=== PATIENT | female | born 1930 | race Caucasian/White ===

== ENCOUNTER → 2016-11-09 | Outpatient (CLI) | payer MEDICARE, OTHER ==
[2016-10-11 11:00] VITALS: BP 149/75
[~2016-11-09] MED LIST: ACET-1550 PO; ACET325T9 PO; ACET500T68 PO; ACET500T68 RC; AMLO5TAB4 PO; ASPI81TA2 PO; CALC500T PO; CLON0.25 PO; FURO20TA3 PO; FURO40TA4 PO; LEVO88TA2 PO; LIDO700A4 TP; LOPE2CAP PO; METO100T11 PO; OMEP20TA63 PO; SENN8.6T3 PO; TELM80TA PO
--- NOTE | 2016-11-09 17:10 | RAD ---
INDICATION: Hemorrhage follow-up COMPARISON: 11/01/2016 TECHNIQUE: Axial CT images obtained through the head without intravenous contrast. FINDINGS: There is repeat demonstration of a right-sided subdural fluid collection which currently measures up to 12 mm in thickness and was previously approximately 15 mm in thickness. There is approximately 2-3 mm of midline shift to the left which is similar to slightly decreased from prior. Prominence of the ventricles and sulci are again seen. Suprasellar cistern is not effaced. Scattered foci of low attenuation within the white matter. IMPRESSION: 1. Repeat demonstration of right-sided subdural fluid collection which could be secondary to the patient's known subdural hematoma. Overall size and degree of midline shift is slightly decreased from prior. PQRS Compliance Statement: One or more of the following individualized dose reduction techniques were utilized for this examination: 1. Automated exposure control 2. Adjustment of the mA and/or kV according to patient size 3. Use of iterative reconstruction technique
== END | disposition home or self-care (01) ==
LOC: CT 12:48
PROVIDERS: ATTEND Neurological Surgery
DX: S06.5X0A Traumatic subdural hemorrhage without loss of consciousness, initial encounter (principal); X58.XXXA Exposure to other specified factors, initial encounter; Y93.89 Activity, other specified; Y92.89 Other specified places as the place of occurrence of the external cause; Y99.8 Other external cause status
CPT/HCPCS: 70450

== ENCOUNTER 2016-12-01 12:26 | Inpatient (IN) | payer MEDICARE, OTHER ==
[~2016-12-01] VITALS: Ht 167.6 cm; Wt 67.4 kg
[~2016-12-01 12:26] MED LIST changes: -AMLO5TAB4 PO; -FURO40TA4 PO; -SENN8.6T3 PO
[2016-12-01 13:10] LABS: BASO # 0.1 x10^3/uL (0.0-0.2); BASO % 1 % (0-3); EOS % 3 % (0-3); HEMATOCRIT 38.8 % (36.0-47.0); HEMOGLOBIN 13.2 g/dL (12.0-15.5); LYMPH # 1.4 x10^3/uL (1.0-4.8); LYMPH % 14 % (24-48); MEAN CORPUSCULAR HEMOGLOBIN 32 pg (25-35); MEAN CORPUSCULAR HGB CONC 34 g/dL (31-37); MEAN CORPUSCULAR VOLUME 93 fL (79-100); MONO % 7 % (0-9); NEUT % 75 % (31-73); PLATELET COUNT 256 x10^3/uL (140-400); RED BLOOD COUNT 4.19 x10^6/uL (3.50-5.40); RED CELL DISTRIBUTION WIDTH 14.8 % (11.5-14.5); WHITE BLOOD COUNT 9.6 x10^3/uL (4.0-11.0)
[2016-12-01 13:18] LABS: INR 1.1 (0.8-1.1); PROTHROMBIN TIME PATIENT 13.3 SEC (11.7-14.0)
[2016-12-01 13:25] LABS: CALCIUM 9.8 mg/dL (8.5-10.1); GFR 23.7; POTASSIUM 4.5 mmol/L (3.5-5.1)
[2016-12-01 13:31] LABS: ALBUMIN 3.8 g/dL (3.4-5.0); DIRECT BILIRUBIN 0.2 mg/dL (0.0-0.2); TOTAL BILIRUBIN 0.7 mg/dL (0.2-1.0)
--- NOTE | 2016-12-01 14:00 | RAD ---
CT of the head without contrast, 12/01/2016: History: Fall, head injury Comparison is made to a study from 10/08/2016 as well as an exam from 11/09/2016. The previously seen right-sided subdural hematoma has resolved. There is moderate cerebral atrophy. The ventricles are enlarged on a compensatory basis. There is no shift of the midline structures. There is no evidence of acute intracranial hemorrhage or mass effect. There is also mild cerebellar atrophy. Mild mucosal thickening is noted in both ethmoid sinuses and the right maxillary sinus. IMPRESSION: 1. Resolution of the previously seen small right subdural hematoma. 2. No acute intracranial abnormality is detected. CT of the cervical spine without contrast, 12/01/2016: No acute fracture or dislocation is identified. There is a minimal superior endplate deformity at C7 which is unchanged since 10/08/2016. There are mild to moderate degenerative changes involving scattered facet joints bilaterally. There is mild disc space narrowing and marginal spurring at C5-6. No high-grade spinal stenosis is evident. There is calcific plaquing at the carotid bifurcations. IMPRESSION: 1. Mild to moderate scattered degenerative changes. 2. No acute bony abnormality is detected. PQRS Compliance Statement: One or more of the following individualized dose reduction techniques were utilized for this examination: 1. Automated exposure control 2. Adjustment of the mA and/or kV according to patient size 3. Use of iterative reconstruction technique
--- NOTE | 2016-12-01 14:02 | RAD ---
Portable chest, 12/01/2016: History: Fall, dizziness The heart is enlarged. There is calcific plaquing of the aorta. There is a retrocardiac mass which may be a hiatal hernia. The pulmonary vascularity is normal. There appear to be scattered parenchymal scars. No acute infiltrate is seen. There is no evidence of pleural fluid. The bony structures are demineralized. Vertebroplasty change is noted in a lower thoracic vertebral body. IMPRESSION: 1. Cardiomegaly and aortic atherosclerosis. 2. Retrocardiac mass suggesting a hiatal hernia.
--- NOTE | 2016-12-01 14:05 | EKG ---
[facility] [address] [place] [address] Test Date: 2016-12-01 Test Time: 13:24:48 Pat Name: HOLLY CHAMPION Department: Room: Gender: F Multimedia Authoring Specialist: : [id number] Requested By: RADHA TEE Order Number: [id number] Reading MD: Measurements Intervals [place] Rate: 71 P: 16 MS: 178 QRS: 18 QRSD: 96 T: 117 QT: 410 QTc: 451 Interpretive Statements SINUS RHYTHM ATRIAL PREMATURE COMPLEX(ES) LVH WITH REPOLARIZATION ABNORMALITY RI6.01 Unconfirmed report No previous ECG available for comparison
[2016-12-01] MEDS ORDERED: ONDANSETRON PF 4 MG/2 ML VIAL. IV ONE (14:15)
[2016-12-01] MEDS ORDERED: HYDROMORPHONE 2 MG/ML VIAL. IV PRN (14:15)
[2016-12-01 14:42] LABS: BILIRUBIN,URINE NEGATIVE (NEG); GLUCOSE,URINE NEGATIVE (NEG); PH,URINE 5.5; PROTEIN,URINE NEGATIVE (NEG-TRACE); UROBILINOGEN,URINE 0.2 mg/dL (0.2 mg/dL)
[2016-12-01 14:43] LABS: NITRITE,URINE NEGATIVE (NEG)
[2016-12-01 14:49] LABS: RBC,URINE RARE /HPF (0-2)
[2016-12-01 14:50] LABS: BACTERIA,URINE MODERATE /HPF (0-FEW); WBC,URINE >40 /HPF (0-4)
[2016-12-01 14:51] LABS: SQUAMOUS EPITHELIAL CELL,UR MOD /LPF
--- NOTE | 2016-12-01 15:09 | PHYS DOC ---
Past Medical History Past Medical History: Hypertension, Other Additional Past Medical Histor: ATRIAL VALVE PROLAPSE Past Surgical History: Appendectomy, Other Additional Past Surgical Histo: TWO BACK SGRYS Alcohol Use: None Drug Use: None Adult General Chief Complaint Chief Complaint: MECHANICAL FALL HPI HPI 85-year-old female presenting to the emergency department today after having shortness of breath and dizziness over the past 2 days. She also sustained a mechanical fall today and suffered head injury. She has an abrasion to the back of the head. She states that she was walking when she felt lightheaded and fell backwards hitting her head. She denies passing out. Review of systems is negative for chest pain abdominal pain nausea vomiting diaphoresis. All other review of systems is negative unless otherwise noted in history of present illness. Review of Systems Review of Systems SEE ABOVE. Current Medications Current Medications Current Medications Medications (Trade) Dose Ordered Sig/Deborah Start Time Stop Time Status Last Admin Dose Admin Hydromorphone HCl (Dilaudid) 0.5 mg PRN Q1HR PRN 12/01/16 14:15 12/01/16 14:15 0.5 MG Ondansetron HCl (Zofran) 4 mg 1X ONCE 12/01/16 14:15 12/01/16 14:25 DC 12/01/16 14:15 4 MG Allergies Allergies Allergies Coded Allergies Type Severity Reaction Last Updated Verified Iodine and Iodide Containing Produc Allergy Intermediate 10/08/16 Yes Physical Exam Physical Exam Constitutional: Well developed, well nourished, no acute distress, non-toxic appearance. Patient is pleasant elderly female saturating well on 3 L nasal cannula. Patient does not have a history of oxygen use. HENT: Normocephalic, the patient has a quarter size abrasion to the left occiput., bilateral external ears normal, oropharynx moist, no oral exudates, nose normal. [] Eyes: PERRLA, EOMI, conjunctiva normal, no discharge. Neck: Normal range of motion, no tenderness, supple, no stridor. [] Cardiovascular:Heart rate regular rhythm, no murmur [] Lungs & Thorax: Bilateral breath sounds clear to auscultation Abdomen: Bowel sounds normal, soft, no tenderness, no masses, no pulsatile masses. [] Skin: Warm, dry, no erythema, no rash. Back: No tenderness, no CVA tenderness. [] Extremities: No tenderness, no cyanosis, no clubbing, ROM intact, no edema. Neurologic: Alert and oriented X 3, normal motor function, normal sensory function, no focal deficits noted. Psychologic: Affect normal, judgement normal, mood normal. [] Current Patient Data Vital Signs Vital Signs Date Time Temp Pulse Resp B/P Pulse Ox O2 Delivery O2 Flow Rate FiO2 12/01/16 14:16 69 138/62 97 Nasal Cannula 3.5 12/01/16 14:15 20 12/01/16 12:26 98 98.0 Lab Values Laboratory Tests Test 12/01/16 12:58 12/01/16 13:55 White Blood Count 9.6x10^3/uL (4.0-11.0) Red Blood Count 4.19x10^6/uL (3.50-5.40) Hemoglobin 13.2g/dL (12.0-15.5) Hematocrit 38.8% (36.0-47.0) Mean Corpuscular Volume 93fL (79-100) Mean Corpuscular Hemoglobin 32pg (25-35) Mean Corpuscular Hemoglobin Concent 34g/dL (31-37) Red Cell Distribution Width 14.8% (11.5-14.5) H Platelet Count 256x10^3/uL (140-400) Neutrophils (%) (Auto) 75% (31-73) H Lymphocytes (%) (Auto) 14% (24-48) L Monocytes (%) (Auto) 7% (0-9) Eosinophils (%) (Auto) 3% (0-3) Basophils (%) (Auto) 1% (0-3) Neutrophils # (Auto) 7.2x10^3uL (1.8-7.7) Lymphocytes # (Auto) 1.4x10^3/uL (1.0-4.8) Monocytes # (Auto) 0.7x10^3/uL (0.0-1.1) Eosinophils # (Auto) 0.3x10^3/uL (0.0-0.7) Basophils # (Auto) 0.1x10^3/uL (0.0-0.2) Prothrombin Time 13.3SEC (11.7-14.0) Prothrombin Time INR 1.1 (0.8-1.1) PTT 30SEC (24-38) Sodium Level 136mmol/L (136-145) Potassium Level 4.5mmol/L (3.5-5.1) Chloride Level 101mmol/L (98-107) Carbon Dioxide Level 23mmol/L (21-32) Anion Gap 12 (6-14) Blood Urea Nitrogen 47mg/dL (7-20) H Creatinine 2.0mg/dL (0.6-1.0) H Estimated GFR (Cockcroft-Gault) 23.7 Glucose Level 117mg/dL (70-99) H Calcium Level 9.8mg/dL (8.5-10.1) Total Bilirubin 0.7mg/dL (0.2-1.0) Direct Bilirubin 0.2mg/dL (0.0-0.2) Aspartate Amino Transferase (AST) 19U/L (15-37) Alanine Aminotransferase (ALT) 12U/L (14-59) L Alkaline Phosphatase 99U/L (46-116) Troponin I Quantitative 0.237ng/mL (0.000-0.055) Total Protein 8.0g/dL (6.4-8.2) Albumin 3.8g/dL (3.4-5.0) Lipase 200U/L (73-393) Urine Collection Type Unknown Urine Color Yellow Urine Clarity Clear Urine pH 5.5 Urine Specific [place] <=1.005 Urine Protein Negativemg/dL (NEG-TRACE) Urine Glucose (UA) Negativemg/dL (NEG) Urine Ketones (Stick) Negativemg/dL (NEG) Urine Blood Negative (NEG) Urine Nitrite Negative (NEG) Urine Bilirubin Negative (NEG) Urine Urobilinogen Dipstick 0.2mg/dL (0.2 mg/dL) Urine Leukocyte Esterase Large (NEG) Urine RBC Rare/HPF (0-2) Urine WBC >40/HPF (0-4) Urine Squamous Epithelial Cells Mod/LPF Urine Bacteria Moderate/HPF (0-FEW) Urine Hyaline Casts Occasional/HPF Urine Mucus Slight/LPF Laboratory Tests 12/01/16 12:58 Laboratory Tests 12/01/16 12:58 EKG EKG [] Interpretation Time: EKG shows sinus rhythm with a regular rate. [place] is leftward. Intervals are within normal limits. ST segments show mild repolarization abnormality in lead V2 and V3. Does not meet STEMI criteria. Morphology of the ST segments not consistent with acute STEMI. Radiology/Procedures Radiology/Procedures [] Course & Med Decision Making Course & Med Decision Making Pertinent Labs and Imaging studies reviewed. (See chart for details) [] 85-year-old female presenting to the emergency department after having lightheadedness dizziness and shortness of breath over the past few days and then suffering from a mechanical fall. On arrival the patient was hypoxic and placed on 3 L nasal cannula which improved her saturations. Otherwise vital signs showed mild hypertension. Physical exam shows a small abrasion to the left occiput. EKG shows LVH with mild repolarization. Blood work was sent CBC unremarkable. Urinalysis suggestive of infection. Antibiotics ordered along with IV fluids. Chemistry panel shows acute kidney injury. Troponin positive likely secondary to type II and STEMI secondary to hypoxia. I discussed the case with Juliet the [facility] for general accounting clerk group and then our general accounting clerk Abby who felt that the patient's troponin likely representing subdural hematoma. Collectively, we decided not to administer any antiplatelets given the risk of worsening bleeding. Patient subsequently admitted to our hospital for further evaluation workup and care including pulmonology and cardiology consultation. Dragon Disclaimer Dragon Disclaimer This electronic medical record was generated, in whole or in part, using a voice recognition dictation system. Departure Departure Impression: Primary Impression: Hypoxia Additional Impressions: Non-STEMI (non-ST elevated myocardial infarction) Urinary tract infection Subdural hemorrhage following injury Disposition: 09 ADMITTED INPATIENT Admitting Physician: Roxi Resendez Condition: STABLE Referrals: OWEN GARCIA MD (PCP) Problem Qualifiers RADHA TEE MD Dec 01, 2016 15:09
[2016-12-01] MEDS ORDERED: ASPIRIN 81 MG TAB.CHEW PO ONE (15:15)
[2016-12-01] MEDS ORDERED: IV NORMAL SALINE 500ML BAG 500 ML IV ONE (15:15)
[2016-12-01] MEDS ORDERED: MORPHINE SULFATE 2 MG/ML DISP.SYRIN. IV PRN (15:15)
[2016-12-01] MEDS ORDERED: ONDANSETRON PF 4 MG/2 ML VIAL. IV PRN (15:15)
[2016-12-01] MEDS ORDERED: CEFTRIAXONE 1GM IVPB FOR OMNI 50 ML IV ONE (15:15)
[2016-12-01] MEDS ORDERED: LOPERAMIDE 2 MG CAPSULE PO PRN (15:45)
--- NOTE | 2016-12-01 15:45 | PDOC1 ---
History and Physical Date of Admission Date of Admission DATE: 12/01/16 TIME: 15:40 Identification/Chief Complaint Chief Complaint dizzy, fall Source Source: Caregiver, Chart review, Patient History of Present Illness History of Present Illness Ms. Grijalva is a 85-year-old sister, lives on the [facility] the [facility], admit for fall after dizzyness, noted shortness of breath and dizziness over the past 2 days. She also sustained a mechanical fall today and suffered head injury with some bleeding from the scalp from a superficial abrasion to the back of the head. Her niece was with her and saw her complain of dizzyness then fall at his her head. no LOC, She now seems to be near her baseline, but is hard of hearing, is not wearing her hearing aids Past Medical History Cardiovascular: CHF, HTN CENTRAL NERVOUS SYSTEM: Other Endocrine: Hypothyroidism Past Surgical History Past Surgical History: Other Family History Family History: No Significant Social History Smoke: No ALCOHOL: none Drugs: None Current Problem List Problem List Problems Medical Problems: (1) Hypoxia Status: Acute (2) Non-STEMI (non-ST elevated myocardial infarction) Status: Acute (3) Urinary tract infection Status: Acute Problems: Current Medications Current Medications Current Medications Hydromorphone HCl (Dilaudid) 0.5 mg PRN Q1HR PRN IV SEVERE PAIN Last administered on 12/01/16 14:15; Start 12/01/16 at 14:15 Ondansetron HCl 4 mg 4 mg 1X ONCE IV Last administered on 12/01/16t 14:15; Start 12/01/16 at 14:15; Stop 12/01/16 at 14:25; Status DC Ceftriaxone Sodium (Rocephin 1gm Ivpb For Omni) 50 ml @ 100 mls/hr 1X ONCE IV ; Start 12/01/16 at 15:15; Stop 12/01/16 at 15:44 Aspirin 324 mg 324 mg 1X ONCE PO ; Start 12/01/16 at 15:15; Stop 12/01/16 at 15 :20; Status DC Sodium Chloride (Iv Sodium Chloride 0.9% 500ml Bag) 500 ml @ 500 mls/hr 1X ONCE IV ; Start 12/01/16 at 15:15; Stop 12/01/16 at 16:14 Ondansetron HCl (Zofran) 4 mg PRN Q8HRS PRN IV NAUSEA/VOMITING; Start 12/01/16 at 15:15; Stop 12/02/16 at 15:14 Morphine Sulfate 2 mg PRN Q2HR PRN IV PAIN; Start 12/01/16 at 15:15; Stop 12/02 at 15:14 Active Scripts Active Reported Acetaminophen-Diphenhyd 500-25 (Acetaminophen/Diphenhydramine) 1 Each Tablet 1- 2 Each PO HS Loperamide (Loperamide Hcl) 2 Mg Capsule 2 Mg PO Q4HRS PRN Calcium Carbonate 500 Mg Tablet 500 Mg PO QID Aspirin 81 Mg Tab.chew 1 Tab PO HS Prilosec Otc (Omeprazole Magnesium) 20 Mg Tablet.dr 1 Tab PO DAILY16 Micardis (Telmisartan) 80 Mg Tablet 1 Tab PO DAILY08 Lidoderm (Lidocaine) 700 Mg Adh..patch 1 Patch TP DAILY Metoprolol Succinate ( Xl ) (Metoprolol Succinate) 100 Mg Tab.er.24h 1 Tab PO DAILY07 Clonazepam 0.25 Mg Tab.rapdis 0.25 Mg PO [id number] Synthroid (Levothyroxine Sodium) 88 Mcg Tablet 1 Tab PO DAILY06 Furosemide 20 Mg Tablet 1 Tab PO [id number] Tylenol (Acetaminophen) 325 Mg Tablet 1-2 Tab PO Q4-6HRS PRN Acetaminophen 500 Mg Tablet 1-2 Supp.rect RC Q4-6HRS PRN Acetaminophen 500 Mg Tablet 1-2 Tab PO Q4-6HRS PRN Allergies Allergies: Coded Allergies: Iodine and Iodide Containing Produc (Verified Allergy, Intermediate, ) ROS General: YES: Fatigue, No: Appetite, Chills, Malaise, Night Sweats, Other PSYCHOLOGICAL ROS: No: Anxiety, Behavioral Disorder, Concentration difficultie , Decreased libido, Depression, Disorientation, Hallucinations, Hostility, Irritablity, Memory difficulties, Mood Swings, Obsessive thoughts, Other, Physical abuse, Sexual abuse, Sleep disturbances, Suicidal ideation Eyes: No Blurry vision, No Decreased vision, No Double vision, No Dry eyes, No Excessive tearing, No Eye Pain, No Itchy Eyes, No Loss of vision, No Other, No Photophobia, No Scotomata, No Uses contacts, No Uses glasses HEENT: YES: Heacaches, No: Epistaxis, Hearing change, Nasal congestion, Nasal discharge, Oral lesions, Other, Sinus pain, Sneezing, Snoring, Sore Throat, Tinnitus, Vertigo, Visual Changes, Vocal changes Respiratory: No: Cough, Hemoptysis, Orthopnea, Other, Pleuritic Pain, SOB with excertion, Shortness of breath, Sputum Changes, Stridor, Tachypnea, Wheezing Cardiovascular: No Chest Pain, No Edema, No Lt Headedness, No Orthopnea, No Other, No Palpitations, No Paroxysmal Noc. Dyspnea Gastrointestinal: Yes Nausea, No Abdominal Pain, No Constipation, No Diarrhea, No Hematochezia, No Melena, No Other, No Vomiting Genitourinary: YES Frequency, No , No , No , No , No , No , No , No Discharge, No Dysuria, No Flank Pain, No Hematuria, No Incontinence, No Other, No Pain, No Retention, No Urgency Musculoskeletal: Yes Joint Stiffness, No Gait Disturbance, No Joint Pain, No Joint Swelling, No Muscle Pain, No Muscular Weakness, No Other, No Pain In:, No Swelling In: Neurological: No Behavorial Changes, No Bowel/Bladder ControlChng, No Confusion , No Dizziness, No Gait Disturbance, No Headaches, No Impaired Coord/balance, No Memory Loss, No Numbness/Tingling, No Other, No Seizures, No Speech Problems , No Tremors, No Visual Changes, No Weakness Skin: No Acne, No Dry Skin, No Eczema, No Hair Changes, No Lumps, No Mole Changes, No Mottling, No Nail Changes, No Other, No Pruritus, No Rash, No Skin Lesion Changes Physical Exam General: Alert, Oriented X3, Cooperative, No acute distress HEENT: PERRLA, EOMI, Other (bloody post scalp and hair) Lungs: Clear to auscultation, Normal air movement Heart: S1S2, no gallops Abdomen: Normal bowel sounds, Soft Extremities: No clubbing, No cyanosis, No edema Skin: No breakdown, No significant lesion Neuro: Normal speech, Normal tone Psych/Mental Status: Mental status NL, Mood NL, Other (hard of hearing) Vitals Vitals Vital Signs Date Time Temp Pulse Resp B/P Pulse Ox O2 Delivery O2 Flow Rate FiO2 12/01/16 14:15 20 12/01/16 12:26 98 77 138/63 94 Nasal Cannula 3.5 98.0 Labs Labs Laboratory Tests Test 12/01/16 12:58 12/01/16 13:55 White Blood Count 9.6x10^3/uL (4.0-11.0) Red Blood Count 4.19x10^6/uL (3.50-5.40) Hemoglobin 13.2g/dL (12.0-15.5) Hematocrit 38.8% (36.0-47.0) Mean Corpuscular Volume 93fL (79-100) Mean Corpuscular Hemoglobin 32pg (25-35) Mean Corpuscular Hemoglobin Concent 34g/dL (31-37) Red Cell Distribution Width 14.8% (11.5-14.5) Platelet Count 256x10^3/uL (140-400) Neutrophils (%) (Auto) 75% (31-73) Lymphocytes (%) (Auto) 14% (24-48) Monocytes (%) (Auto) 7% (0-9) Eosinophils (%) (Auto) 3% (0-3) Basophils (%) (Auto) 1% (0-3) Neutrophils # (Auto) 7.2x10^3uL (1.8-7.7) Lymphocytes # (Auto) 1.4x10^3/uL (1.0-4.8) Monocytes # (Auto) 0.7x10^3/uL (0.0-1.1) Eosinophils # (Auto) 0.3x10^3/uL (0.0-0.7) Basophils # (Auto) 0.1x10^3/uL (0.0-0.2) Prothrombin Time 13.3SEC (11.7-14.0) Prothromb Time International Ratio 1.1 (0.8-1.1) Activated Partial Thromboplast Time 30SEC (24-38) Sodium Level 136mmol/L (136-145) Potassium Level 4.5mmol/L (3.5-5.1) Chloride Level 101mmol/L (98-107) Carbon Dioxide Level 23mmol/L (21-32) Anion Gap 12 (6-14) Blood Urea Nitrogen 47mg/dL (7-20) Creatinine 2.0mg/dL (0.6-1.0) Estimated GFR (Cockcroft-Gault) 23.7 Glucose Level 117mg/dL (70-99) Calcium Level 9.8mg/dL (8.5-10.1) Total Bilirubin 0.7mg/dL (0.2-1.0) Direct Bilirubin 0.2mg/dL (0.0-0.2) Aspartate Amino Transf (AST/SGOT) 19U/L (15-37) Alanine Aminotransferase (ALT/SGPT) 12U/L (14-59) Alkaline Phosphatase 99U/L (46-116) Troponin I Quantitative 0.237ng/mL (0.000-0.055) Total Protein 8.0g/dL (6.4-8.2) Albumin 3.8g/dL (3.4-5.0) Lipase 200U/L (73-393) Urine Collection Type Unknown Urine Color Yellow Urine Clarity Clear Urine pH 5.5 Urine Specific [place] <=1.005 Urine Protein Negativemg/dL (NEG-TRACE) Urine Glucose (UA) Negativemg/dL (NEG) Urine Ketones (Stick) Negativemg/dL (NEG) Urine Blood Negative (NEG) Urine Nitrite Negative (NEG) Urine Bilirubin Negative (NEG) Urine Urobilinogen Dipstick 0.2mg/dL (0.2 mg/dL) Urine Leukocyte Esterase Large (NEG) Urine RBC Rare/HPF (0-2) Urine WBC >40/HPF (0-4) Urine Squamous Epithelial Cells Mod/LPF Urine Bacteria Moderate/HPF (0-FEW) Urine Hyaline Casts Occasional/HPF Urine Mucus Slight/LPF Laboratory Tests Test 12/01/16 12:58 12/01/16 13:55 White Blood Count 9.6x10^3/uL (4.0-11.0) Red Blood Count 4.19x10^6/uL (3.50-5.40) Hemoglobin 13.2g/dL (12.0-15.5) Hematocrit 38.8% (36.0-47.0) Mean Corpuscular Volume 93fL (79-100) Mean Corpuscular Hemoglobin 32pg (25-35) Mean Corpuscular Hemoglobin Concent 34g/dL (31-37) Red Cell Distribution Width 14.8% (11.5-14.5) Platelet Count 256x10^3/uL (140-400) Neutrophils (%) (Auto) 75% (31-73) Lymphocytes (%) (Auto) 14% (24-48) Monocytes (%) (Auto) 7% (0-9) Eosinophils (%) (Auto) 3% (0-3) Basophils (%) (Auto) 1% (0-3) Neutrophils # (Auto) 7.2x10^3uL (1.8-7.7) Lymphocytes # (Auto) 1.4x10^3/uL (1.0-4.8) Monocytes # (Auto) 0.7x10^3/uL (0.0-1.1) Eosinophils # (Auto) 0.3x10^3/uL (0.0-0.7) Basophils # (Auto) 0.1x10^3/uL (0.0-0.2) Prothrombin Time 13.3SEC (11.7-14.0) Prothromb Time International Ratio 1.1 (0.8-1.1) Activated Partial Thromboplast Time 30SEC (24-38) Sodium Level 136mmol/L (136-145) Potassium Level 4.5mmol/L (3.5-5.1) Chloride Level 101mmol/L (98-107) Carbon Dioxide Level 23mmol/L (21-32) Anion Gap 12 (6-14) Blood Urea Nitrogen 47mg/dL (7-20) Creatinine 2.0mg/dL (0.6-1.0) Estimated GFR (Cockcroft-Gault) 23.7 Glucose Level 117mg/dL (70-99) Calcium Level 9.8mg/dL (8.5-10.1) Total Bilirubin 0.7mg/dL (0.2-1.0) Direct Bilirubin 0.2mg/dL (0.0-0.2) Aspartate Amino Transf (AST/SGOT) 19U/L (15-37) Alanine Aminotransferase (ALT/SGPT) 12U/L (14-59) Alkaline Phosphatase 99U/L (46-116) Troponin I Quantitative 0.237ng/mL (0.000-0.055) Total Protein 8.0g/dL (6.4-8.2) Albumin 3.8g/dL (3.4-5.0) Lipase 200U/L (73-393) Urine Collection Type Unknown Urine Color Yellow Urine Clarity Clear Urine pH 5.5 Urine Specific [place] <=1.005 Urine Protein Negativemg/dL (NEG-TRACE) Urine Glucose (UA) Negativemg/dL (NEG) Urine Ketones (Stick) Negativemg/dL (NEG) Urine Blood Negative (NEG) Urine Nitrite Negative (NEG) Urine Bilirubin Negative (NEG) Urine Urobilinogen Dipstick 0.2mg/dL (0.2 mg/dL) Urine Leukocyte Esterase Large (NEG) Urine RBC Rare/HPF (0-2) Urine WBC >40/HPF (0-4) Urine Squamous Epithelial Cells Mod/LPF Urine Bacteria Moderate/HPF (0-FEW) Urine Hyaline Casts Occasional/HPF Urine Mucus Slight/LPF VTE Prophylaxis Ordered VTE Prophylaxis Devices: Yes VTE Pharmacological Prophylaxi: Contraindicated Assessment/Plan Assessment/Plan UTI fall, scalp laceration, concussion, post-concussive syndrome, mental status is pretty good subdural hematoma, prior known, she has seen Dr. Jain before Acute on CKD 3, vasomotor, gentle IV fluid, , minimal dyspnea, occasional LE edema, dizzyness, acute on chronic diastolic CHF, hypothyroidism admit to ICU for neurochecks, seen in ER HARRY FUCHS MD Dec 01, 2016 15:45
[2016-12-01] MEDS ORDERED: METOPROLOL SUCC 24HR ER 100 MG TAB.ER.24H. PO SCH (16:00)
--- NOTE | 2016-12-01 16:15 | ACF ---
Admission Forms Criteria URINARY COMPLICATIONS Clinical Indications for Inpatient Care (Place 'X' for any and all applicable criteria): Ongoing inpatient care may be indicated for urinary complications with ANY ONE of the following: [X]I. Urinary tract infection requiring inpatient care as indicated by ANY ONE of the following(8)(19)(20): [ ]a) Severe symptoms (eg, high fever, severe pain) [ ]b) Vomiting or dehydration requiring ongoing inpatient care [X]c) IV antibiotic needs that cannot be managed at lower level of care [ ]d) Hemodynamic instability [ ]e) Obstruction of collecting system by stone or tumor [ ]II. Urinary retention requiring drainage or surgery (3)(4)(5)(17)(18) [ ]III. Renal failure (Use Renal Failure Criteria for further information.) [ ]IV. Oliguria(30) [ ]V. Post obstructive diuresis requiring close monitoring of urine output and intravenous compensation for excessive fluid losses(33) Extended stay beyond goal length of stay for primary condition may be needed until ALL of the following are present(3)(4)(5)(8): [ ]a) Renal function (creatinine) at baseline, or daily decreases in creatinine consistent with renal function return [ ]b) Voiding adequately or with urinary catheter or percutaneous suprapubic tube and management regimen in place that is performable at lower level of care. [ ]c) Urine output adequate [ ]d) Fever absent or resolving [ ]e) Infection absent or treatable at next level of care The original [employer] content created by [employer] has been revised. The portions of the content which have been revised are identified through the use of italic text or in bold, and [facility] has neither reviewed nor approved the modified material. All other unmodified content is copyright [facility] Please see references footnoted in the original [facility] edition 2016 Admission Criteria Met?: Yes TOMASA NAYLOR Dec 01, 2016 16:15
[2016-12-01 16:30] VITALS: BP 130/73
[2016-12-01 16:45] VITALS: BP 113/57
--- NOTE | 2016-12-01 16:47 | PDOC ---
Provider Note Provider Note DICTATED AMBAR BARRAGAN MD Dec 01, 2016 16:47
[2016-12-01 17:00] VITALS: BP 154/89
[2016-12-01] MEDS ORDERED: FUROSEMIDE 20 MG/2 ML VIAL IVP ONE (17:00)
--- NOTE | 2016-12-01 17:07 | CONS ---
DATE OF CONSULTATION: ATTENDING PHYSICIAN: Roxi Resendez M.D. REASON FOR CONSULTATION: Hypoxia. HISTORY OF PRESENT ILLNESS: The patient is an 85-year-old female who has no significant history of tobacco use. She fell today after she felt dizzy and lightheaded and was short of breath. The patient had a mechanical fall and suffered head injury with some bleeding from the scalp, which was a superficial abrasion. She did not require any sutures. She reports no loss of consciousness. She is requiring about 3-1/2 liters on arrival. The patient's chest x-ray was reviewed by me and shows mild CHF and cardiomegaly. No history of deep vein thrombosis or pulmonary embolism. PAST MEDICAL HISTORY: CHF, hypertension, hypothyroidism and chronic renal insufficiency. PAST SURGICAL HISTORY: No recent surgery. ALLERGIES: IODINE. MEDICATIONS: All reviewed as listed in the MRAD including Rocephin antibiotic. She is also on clonazepam. REVIEW OF SYSTEMS: Twelve-point system obtained. Pertinent positives discussed in history of present illness, otherwise noncontributory. All systems that were negative were reviewed as well. SOCIAL HISTORY: Nonsmoker. FAMILY HISTORY: Noncontributory ____. PHYSICAL EXAMINATION: GENERAL: Latest blood pressure 144/79. VITAL SIGNS: Pulse ox 98% on 3.5 liters, afebrile. HEENT: Sclerae nonicteric. NECK: Supple. LUNGS: With crackles at both the bases, more on the right than the left. CARDIOVASCULAR: Regular rate and rhythm. ABDOMEN: Soft. EXTREMITIES: With 1+ pitting edema. SKIN: Shows some bruising and abrasion on the left scalp posteriorly. LABORATORY DATA: Reviewed. Her BUN 47, creatinine 2.0. Troponin 0.237. INR is 1.1. White cell count 9.6, hemoglobin 13.2, platelets 256. IMPRESSION: 1. Status post mechanical fall after a syncopal episode. 2. Acute hypoxic respiratory failure, most likely secondary to mild congestive heart failure. She has interstitial markings been prominent and some mild basilar effusion along with cardiomegaly. We will obtain an echocardiogram. 3. No significant history of tobacco use. RECOMMENDATIONS: 1. Obtain proBNP. 2. Mild gentle diuresis with one-time dose of Lasix 20 mg and monitor renal function. 3. Obtain echocardiogram. 4. Follow Renal recommendation. 5. Follow Cardiology recommendation regarding any workup or syncope. 6. We will follow along with you. Discussed with RN/RT and family AMBAR BARRAGAN MD DR: CHANDRA/roxy JOB#: [id number] / [id number] EMMANUEL
[2016-12-01] MEDS: CALCIUM CARBONATE 500 MG TABLET PO SCH ×2 (17:53→20:49)
[2016-12-01] MEDS: PANTOPRAZOLE 40 MG TABLET. PO SCH (17:53)
[2016-12-01] MEDS: CLONAZEPAM 0.5 MG TABLET PO SCH ×2 (17:53→20:50)
[2016-12-01] MEDS ORDERED: SENNOSIDES 8.6 MG TABLET PO PRN (18:15)
[2016-12-01] MEDS ORDERED: SENN8.6T3 PO (18:23)
[2016-12-01] MEDS ORDERED: AMLO5TAB4 PO (18:23)
[2016-12-01] MEDS: AMLODIPINE BESYLATE 5 MG TABLET PO SCH (18:41)
[2016-12-01 19:00] VITALS: BP 100/51
[2016-12-01] MEDS: DIPHENHYDRAMINE HCL 25 MG CAPSULE PO PRN (20:49)
[2016-12-01] MEDS ORDERED: ASPIRIN 81 MG TAB.CHEW PO SCH (21:00)
[2016-12-01 23:00] VITALS: BP 132/59
[2016-12-02] VITALS (7 sets, daily range): BP systolic 103–168; BP diastolic 34–80
[2016-12-02 04:34] LABS: BASO # 0.1 x10^3/uL (0.0-0.2); BASO % 1 % (0-3); EOS % 6 % (0-3); HEMATOCRIT 33.6 % (36.0-47.0); HEMOGLOBIN 11.4 g/dL (12.0-15.5); LYMPH # 1.5 x10^3/uL (1.0-4.8); LYMPH % 21 % (24-48); MEAN CORPUSCULAR HEMOGLOBIN 32 pg (25-35); MEAN CORPUSCULAR HGB CONC 34 g/dL (31-37); MEAN CORPUSCULAR VOLUME 94 fL (79-100); MONO % 10 % (0-9); NEUT % 63 % (31-73); PLATELET COUNT 212 x10^3/uL (140-400); RED BLOOD COUNT 3.58 x10^6/uL (3.50-5.40); RED CELL DISTRIBUTION WIDTH 14.6 % (11.5-14.5); WHITE BLOOD COUNT 7.3 x10^3/uL (4.0-11.0)
[2016-12-02] MEDS: CLONAZEPAM 0.5 MG TABLET PO SCH ×3 (05:20→20:37)
[2016-12-02] MEDS: LEVOTHYROXINE 88 MCG TABLET PO SCH (05:20)
[2016-12-02] MEDS: CALCIUM CARBONATE 500 MG TABLET PO SCH ×4 (09:22→20:36)
[2016-12-02] MEDS: AMLODIPINE BESYLATE 5 MG TABLET PO SCH (09:23)
[2016-12-02] MEDS: LIDOCAINE (700MG/PATCH) PATCH. TP SCH (09:27)
[2016-12-02] MEDS: METOPROLOL SUCC 24HR ER 100 MG TAB.ER.24H. PO SCH (09:28)
--- NOTE | 2016-12-02 09:44 | PDOC1 ---
History and Physical Visit Information Date of Admission: Dec 01, 2016 at 15:09 History of Present Illness History of Present Illness 86 YO sister presents after an episode of near syncope with fall, striking her head. She has had at least 3 recent similar episodes, one resulting in a subdural hematoma. Patient follows with an outside community development technician, and TAVR has been recommended. Patient has been reluctant to proceed due to fear of procedural stroke. Current Problem List Problems: (1) Severe aortic stenosis (2) Diastolic heart failure (3) CKD (chronic kidney disease) (4) Compression fx, thoracic spine (5) Urinary tract infection (6) Hypoxia (7) Subdural hemorrhage following injury Current Medications Current Medications Current Medications Acetaminophen (Tylenol) 325 mg PRN Q4HRS PRN PO PAIN; Start 12/01/16 at 15:45 Amlodipine Besylate (Norvasc) 5 mg DAILY PO ; Start 12/01/16 at 18:45 Aspirin (Children'S Aspirin) 81 mg HS PO Last administered on 12/01/16 20:49; Start 12/01/16 at 21:00 Aspirin 324 mg 324 mg 1X ONCE PO ; Start 12/01/16 at 15:15; Stop 12/01/16 at 15 :20; Status DC Calcium Carbonate/ Glycine (Oscal) 500 mg QID PO Last administered on 20:49; Start 12/01/16 at 17:00 Ceftriaxone Sodium/Sodium Chloride (Rocephin/Iv Sodium Chloride 0.9% 50ml) 50 ml @ 100 mls/hr Q24H IV ; Start 12/02/16 at 16:00 Ceftriaxone Sodium (Rocephin 1gm Ivpb For Omni) 50 ml @ 100 mls/hr 1X ONCE IV Last administered on 12/01/16 15:42; Start 12/01/16 at 15:15; Stop 12/01/16 at 15:44; Status DC Clonazepam (Klonopin) 0.25 mg [id number] PO Last administered on 12/02/16 05:20; Start 12/01/16 at 16:00 Diphenhydramine HCl (Benadryl) 25 mg PRN QHS PRN PO INSOMNIA Last administered on 12/01/16 20:49; Start 12/01/16 at 20:45 Furosemide (Lasix) 20 mg 1X ONCE IVP Last administered on 12/01/16 17:57; Start 12/01/16 at 17:00; Stop 12/01/16 at 17:01; Status DC Hydromorphone HCl (Dilaudid) 0.5 mg PRN Q1HR PRN IV SEVERE PAIN Last administered on 12/01/16 14:15; Start 12/01/16 at 14:15 Levothyroxine Sodium (Synthroid) 88 mcg DAILY06 PO Last administered on 05:20; Start 12/02/16 at 06:00 Lidocaine (Lidoderm) 1 patch DAILY TP ; Start 12/02/16 at 09:00 Loperamide HCl (Imodium) 2 mg PRN Q4HRS PRN PO DIARRHEA; Start 12/01/16 at 15: 45 Metoprolol Succinate (Toprol Xl) 100 mg DAILY PO ; Start 12/02/16 at 09:00 Metoprolol Succinate (Toprol Xl) 100 mg DAILY07 PO ; Start 12/01/16 at 16:00; Stop 12/02/16 at 05:34; Status DC Morphine Sulfate 2 mg 2 mg PRN Q2HR PRN IV PAIN; Start 12/01/16 at 15:15; Stop 12/02/16 at 15:14 Ondansetron HCl (Zofran) 4 mg PRN Q8HRS PRN IV NAUSEA/VOMITING; Start 12/01/16 at 15:15; Stop 12/02/16 at 15:14 Ondansetron HCl 4 mg 4 mg 1X ONCE IV Last administered on 12/01/16 14:15; Start 12/01/16 at 14:15; Stop 12/01/16 at 14:25; Status DC Pantoprazole Sodium (Protonix) 40 mg DAILY16 PO Last administered on 12/01/16 17:53; Start 12/01/16 at 16:00 Sennosides (Senna) 8.6 mg PRN DAILY PRN PO CONSTIPATION; Start 12/01/16 at 18: 15 Sodium Chloride (Iv Sodium Chloride 0.9% 500ml Bag) 500 ml @ 500 mls/hr 1X ONCE IV Last administered on 12/01/16 15:44; Start 12/01/16 at 15:15; Stop 07/10 at 16:14; Status DC Allergies Allergies Allergies Coded Allergies Type Severity Reaction Last Updated Verified Iodine and Iodide Containing Produc Allergy Intermediate 10/08/16 Yes Social History Smoke: No ALCOHOL: none Family History Family History: Coronary Artery Disease ROS Cardiovascular: yes Edema, yes Lt Headedness, No Chest Pain, No Orthopnea, No Other, No Palpitations, No Paroxysmal Noc. Dyspnea Physical Exam General: Alert, Oriented X3, Cooperative, No acute distress Lungs: Other (Bibasilar crackles) Heart: Other (3/6 Cr/Decr murmur RUSB radiating to left carotid. Soft S2) Extremities: No edema Skin: No rashes Neuro: Other (No focal findings) VASCULAR: Carotid (Delayed upstroke) Vitals VITALS Vital Signs Date Time Temp Pulse Resp B/P Pulse Ox O2 Delivery O2 Flow Rate FiO2 12/02/16 07:44 Nasal Cannula 2.0 12/02/16 07:00 98.0 67 20 103/45 98 98.0 Labs Labs Laboratory Tests Test 12/01/16 12:58 12/01/16 13:55 12/01/16 16:45 12/01/16 21:20 White Blood Count 9.6x10^3/uL (4.0-11.0) Red Blood Count 4.19x10^6/uL (3.50-5.40) Hemoglobin 13.2g/dL (12.0-15.5) Hematocrit 38.8% (36.0-47.0) Mean Corpuscular Volume 93fL (79-100) Mean Corpuscular Hemoglobin 32pg (25-35) Mean Corpuscular Hemoglobin Concent 34g/dL (31-37) Red Cell Distribution Width 14.8% (11.5-14.5) Platelet Count 256x10^3/uL (140-400) Neutrophils (%) (Auto) 75% (31-73) Lymphocytes (%) (Auto) 14% (24-48) Monocytes (%) (Auto) 7% (0-9) Eosinophils (%) (Auto) 3% (0-3) Basophils (%) (Auto) 1% (0-3) Neutrophils # (Auto) 7.2x10^3uL (1.8-7.7) Lymphocytes # (Auto) 1.4x10^3/uL (1.0-4.8) Monocytes # (Auto) 0.7x10^3/uL (0.0-1.1) Eosinophils # (Auto) 0.3x10^3/uL (0.0-0.7) Basophils # (Auto) 0.1x10^3/uL (0.0-0.2) Prothrombin Time 13.3SEC (11.7-14.0) Prothromb Time International Ratio 1.1 (0.8-1.1) Activated Partial Thromboplast Time 30SEC (24-38) Sodium Level 136mmol/L (136-145) Potassium Level 4.5mmol/L (3.5-5.1) Chloride Level 101mmol/L (98-107) Carbon Dioxide Level 23mmol/L (21-32) Anion Gap 12 (6-14) Blood Urea Nitrogen 47mg/dL (7-20) Creatinine 2.0mg/dL (0.6-1.0) Estimated GFR (Cockcroft-Gault) 23.7 Glucose Level 117mg/dL (70-99) Calcium Level 9.8mg/dL (8.5-10.1) Total Bilirubin 0.7mg/dL (0.2-1.0) Direct Bilirubin 0.2mg/dL (0.0-0.2) Aspartate Amino Transf (AST/SGOT) 19U/L (15-37) Alanine Aminotransferase (ALT/SGPT) 12U/L (14-59) Alkaline Phosphatase 99U/L (46-116) Troponin I Quantitative 0.237ng/mL (0.000-0.055) 0.314ng/mL (0.000-0.055) Total Protein 8.0g/dL (6.4-8.2) Albumin 3.8g/dL (3.4-5.0) Lipase 200U/L (73-393) Urine Collection Type Unknown Urine Color Yellow Urine Clarity Clear Urine pH 5.5 Urine Specific [place] <=1.005 Urine Protein Negativemg/dL (NEG-TRACE) Urine Glucose (UA) Negativemg/dL (NEG) Urine Ketones (Stick) Negativemg/dL (NEG) Urine Blood Negative (NEG) Urine Nitrite Negative (NEG) Urine Bilirubin Negative (NEG) Urine Urobilinogen Dipstick 0.2mg/dL (0.2 mg/dL) Urine Leukocyte Esterase Large (NEG) Urine RBC Rare/HPF (0-2) Urine WBC >40/HPF (0-4) Urine Squamous Epithelial Cells Mod/LPF Urine Bacteria Moderate/HPF (0-FEW) Urine Hyaline Casts Occasional/HPF Urine Mucus Slight/LPF Nasal Screen MRSA (PCR) Negative (Negative) Test 12/02/16 03:30 White Blood Count 7.3x10^3/uL (4.0-11.0) Red Blood Count 3.58x10^6/uL (3.50-5.40) Hemoglobin 11.4g/dL (12.0-15.5) Hematocrit 33.6% (36.0-47.0) Mean Corpuscular Volume 94fL (79-100) Mean Corpuscular Hemoglobin 32pg (25-35) Mean Corpuscular Hemoglobin Concent 34g/dL (31-37) Red Cell Distribution Width 14.6% (11.5-14.5) Platelet Count 212x10^3/uL (140-400) Neutrophils (%) (Auto) 63% (31-73) Lymphocytes (%) (Auto) 21% (24-48) Monocytes (%) (Auto) 10% (0-9) Eosinophils (%) (Auto) 6% (0-3) Basophils (%) (Auto) 1% (0-3) Neutrophils # (Auto) 4.6x10^3uL (1.8-7.7) Lymphocytes # (Auto) 1.5x10^3/uL (1.0-4.8) Monocytes # (Auto) 0.7x10^3/uL (0.0-1.1) Eosinophils # (Auto) 0.4x10^3/uL (0.0-0.7) Basophils # (Auto) 0.1x10^3/uL (0.0-0.2) Troponin I Quantitative 0.327ng/mL (0.000-0.055) JT-Zuo-K-Type Natriuretic Peptide 94658th/mL (0-449) Laboratory Tests Test 12/01/16 12:58 12/01/16 13:55 12/01/16 16:45 12/01/16 21:20 White Blood Count 9.6x10^3/uL (4.0-11.0) Red Blood Count 4.19x10^6/uL (3.50-5.40) Hemoglobin 13.2g/dL (12.0-15.5) Hematocrit 38.8% (36.0-47.0) Mean Corpuscular Volume 93fL (79-100) Mean Corpuscular Hemoglobin 32pg (25-35) Mean Corpuscular Hemoglobin Concent 34g/dL (31-37) Red Cell Distribution Width 14.8% (11.5-14.5) Platelet Count 256x10^3/uL (140-400) Neutrophils (%) (Auto) 75% (31-73) Lymphocytes (%) (Auto) 14% (24-48) Monocytes (%) (Auto) 7% (0-9) Eosinophils (%) (Auto) 3% (0-3) Basophils (%) (Auto) 1% (0-3) Neutrophils # (Auto) 7.2x10^3uL (1.8-7.7) Lymphocytes # (Auto) 1.4x10^3/uL (1.0-4.8) Monocytes # (Auto) 0.7x10^3/uL (0.0-1.1) Eosinophils # (Auto) 0.3x10^3/uL (0.0-0.7) Basophils # (Auto) 0.1x10^3/uL (0.0-0.2) Prothrombin Time 13.3SEC (11.7-14.0) Prothromb Time International Ratio 1.1 (0.8-1.1) Activated Partial Thromboplast Time 30SEC (24-38) Sodium Level 136mmol/L (136-145) Potassium Level 4.5mmol/L (3.5-5.1) Chloride Level 101mmol/L (98-107) Carbon Dioxide Level 23mmol/L (21-32) Anion Gap 12 (6-14) Blood Urea Nitrogen 47mg/dL (7-20) Creatinine 2.0mg/dL (0.6-1.0) Estimated GFR (Cockcroft-Gault) 23.7 Glucose Level 117mg/dL (70-99) Calcium Level 9.8mg/dL (8.5-10.1) Total Bilirubin 0.7mg/dL (0.2-1.0) Direct Bilirubin 0.2mg/dL (0.0-0.2) Aspartate Amino Transf (AST/SGOT) 19U/L (15-37) Alanine Aminotransferase (ALT/SGPT) 12U/L (14-59) Alkaline Phosphatase 99U/L (46-116) Troponin I Quantitative 0.237ng/mL (0.000-0.055) 0.314ng/mL (0.000-0.055) Total Protein 8.0g/dL (6.4-8.2) Albumin 3.8g/dL (3.4-5.0) Lipase 200U/L (73-393) Urine Collection Type Unknown Urine Color Yellow Urine Clarity Clear Urine pH 5.5 Urine Specific [place] <=1.005 Urine Protein Negativemg/dL (NEG-TRACE) Urine Glucose (UA) Negativemg/dL (NEG) Urine Ketones (Stick) Negativemg/dL (NEG) Urine Blood Negative (NEG) Urine Nitrite Negative (NEG) Urine Bilirubin Negative (NEG) Urine Urobilinogen Dipstick 0.2mg/dL (0.2 mg/dL) Urine Leukocyte Esterase Large (NEG) Urine RBC Rare/HPF (0-2) Urine WBC >40/HPF (0-4) Urine Squamous Epithelial Cells Mod/LPF Urine Bacteria Moderate/HPF (0-FEW) Urine Hyaline Casts Occasional/HPF Urine Mucus Slight/LPF Nasal Screen MRSA (PCR) Negative (Negative) Test 12/02/16 03:30 White Blood Count 7.3x10^3/uL (4.0-11.0) Red Blood Count 3.58x10^6/uL (3.50-5.40) Hemoglobin 11.4g/dL (12.0-15.5) Hematocrit 33.6% (36.0-47.0) Mean Corpuscular Volume 94fL (79-100) Mean Corpuscular Hemoglobin 32pg (25-35) Mean Corpuscular Hemoglobin Concent 34g/dL (31-37) Red Cell Distribution Width 14.6% (11.5-14.5) Platelet Count 212x10^3/uL (140-400) Neutrophils (%) (Auto) 63% (31-73) Lymphocytes (%) (Auto) 21% (24-48) Monocytes (%) (Auto) 10% (0-9) Eosinophils (%) (Auto) 6% (0-3) Basophils (%) (Auto) 1% (0-3) Neutrophils # (Auto) 4.6x10^3uL (1.8-7.7) Lymphocytes # (Auto) 1.5x10^3/uL (1.0-4.8) Monocytes # (Auto) 0.7x10^3/uL (0.0-1.1) Eosinophils # (Auto) 0.4x10^3/uL (0.0-0.7) Basophils # (Auto) 0.1x10^3/uL (0.0-0.2) Troponin I Quantitative 0.327ng/mL (0.000-0.055) HO-Sox-H-Type Natriuretic Peptide 22516wc/mL (0-449) Chest X-Ray Chest X-Ray: Other (Mild cephalization and edema) VTE Prophylaxis Ordered VTE Prophylaxis Devices: Yes VTE Pharmacological Prophylaxi: Contraindicated Assessment/Plan Assessment/Plan 1) Severe symptomatic 2) Near syncope 3) Diastolic heart failure 4) History of subdural hematoma now resolved 5) Elevated troponin most likely due to #1 Discussion: The patient previously has been reluctant to pursue definitive valve replacement for her . I discussed with her that her symptoms of near syncope/ syncope and heart failure are likely to only worsen, and medical therapy will not be effective in the intermediate. The patient is now willing to at least pursue consultation for AVR, particularly TAVR. I will discuss this with the Cardiology team upon their return on Sunday so that referral to the proper center for evaluation can be enacted. Will perform echo here, but would defer cardiac cath at this time as this can be taken care of at the TAVR facility, if the patient wishes to pursue. I do not recommend anticoagulation or DAPT for this patient given that the elevated troponin is not likely due to a plaque rupture/erosion event, but rather type II [place] due to deranged supply/demand due to . A low dose ASA is adequate at this time. The patient at this time appears adequately diuresed, and I recommend fluid restriction to < 2 liters a day and sodium < 2000 mg a day. Will continue to follow closely. Total time spent with the patient with more than half counseling on her condition and therapeutic options, as well as coordinating care on the unit is 50 minutes. Problem Qualifiers (1) Diastolic heart failure: Heart failure chronicity: chronic Qualified Code: I50.32 - Chronic diastolic (congestive) heart failure (2) CKD (chronic kidney disease): Chronic kidney disease stage: stage 3 (moderate) Qualified Code: N18.3 - Chronic kidney disease, stage 3 (moderate) PIO WALTERS DO Dec 02, 2016 09:44
[2016-12-02 11:17] LABS: CALCIUM 9.5 mg/dL (8.5-10.1); CREATININE 1.8 mg/dL (0.6-1.0); GFR 26.7; POTASSIUM 4.3 mmol/L (3.5-5.1)
--- NOTE | 2016-12-02 11:48 | PDOC ---
PULMONARY PROGRESS NOTES Subjective HYPOXIA RESOLVED WITH DIURESIS Vitals Vital Signs Date Time Temp Pulse Resp B/P Pulse Ox O2 Delivery O2 Flow Rate FiO2 12/02/16 09:28 79 126/58 12/02/16 07:44 Nasal Cannula 2.0 12/02/16 07:00 98.0 20 98 98.0 General: Alert, No acute distress Lungs: Clear Cardiovascular: S1 Abdomen: Soft Neuro Exam: Alert Extremities: Other (1+edema) Labs Laboratory Tests Test 12/01/16 12:58 12/01/16 13:55 12/01/16 16:45 12/01/16 21:20 White Blood Count 9.6x10^3/uL (4.0-11.0) Red Blood Count 4.19x10^6/uL (3.50-5.40) Hemoglobin 13.2g/dL (12.0-15.5) Hematocrit 38.8% (36.0-47.0) Mean Corpuscular Volume 93fL (79-100) Mean Corpuscular Hemoglobin 32pg (25-35) Mean Corpuscular Hemoglobin Concent 34g/dL (31-37) Red Cell Distribution Width 14.8% (11.5-14.5) Platelet Count 256x10^3/uL (140-400) Neutrophils (%) (Auto) 75% (31-73) Lymphocytes (%) (Auto) 14% (24-48) Monocytes (%) (Auto) 7% (0-9) Eosinophils (%) (Auto) 3% (0-3) Basophils (%) (Auto) 1% (0-3) Neutrophils # (Auto) 7.2x10^3uL (1.8-7.7) Lymphocytes # (Auto) 1.4x10^3/uL (1.0-4.8) Monocytes # (Auto) 0.7x10^3/uL (0.0-1.1) Eosinophils # (Auto) 0.3x10^3/uL (0.0-0.7) Basophils # (Auto) 0.1x10^3/uL (0.0-0.2) Prothrombin Time 13.3SEC (11.7-14.0) Prothromb Time International Ratio 1.1 (0.8-1.1) Activated Partial Thromboplast Time 30SEC (24-38) Sodium Level 136mmol/L (136-145) Potassium Level 4.5mmol/L (3.5-5.1) Chloride Level 101mmol/L (98-107) Carbon Dioxide Level 23mmol/L (21-32) Anion Gap 12 (6-14) Blood Urea Nitrogen 47mg/dL (7-20) Creatinine 2.0mg/dL (0.6-1.0) Estimated GFR (Cockcroft-Gault) 23.7 Glucose Level 117mg/dL (70-99) Calcium Level 9.8mg/dL (8.5-10.1) Total Bilirubin 0.7mg/dL (0.2-1.0) Direct Bilirubin 0.2mg/dL (0.0-0.2) Aspartate Amino Transf (AST/SGOT) 19U/L (15-37) Alanine Aminotransferase (ALT/SGPT) 12U/L (14-59) Alkaline Phosphatase 99U/L (46-116) Troponin I Quantitative 0.237ng/mL (0.000-0.055) 0.314ng/mL (0.000-0.055) Total Protein 8.0g/dL (6.4-8.2) Albumin 3.8g/dL (3.4-5.0) Lipase 200U/L (73-393) Urine Collection Type Unknown Urine Color Yellow Urine Clarity Clear Urine pH 5.5 Urine Specific [place] <=1.005 Urine Protein Negativemg/dL (NEG-TRACE) Urine Glucose (UA) Negativemg/dL (NEG) Urine Ketones (Stick) Negativemg/dL (NEG) Urine Blood Negative (NEG) Urine Nitrite Negative (NEG) Urine Bilirubin Negative (NEG) Urine Urobilinogen Dipstick 0.2mg/dL (0.2 mg/dL) Urine Leukocyte Esterase Large (NEG) Urine RBC Rare/HPF (0-2) Urine WBC >40/HPF (0-4) Urine Squamous Epithelial Cells Mod/LPF Urine Bacteria Moderate/HPF (0-FEW) Urine Hyaline Casts Occasional/HPF Urine Mucus Slight/LPF Nasal Screen MRSA (PCR) Negative (Negative) Test 12/02/16 03:30 White Blood Count 7.3x10^3/uL (4.0-11.0) Red Blood Count 3.58x10^6/uL (3.50-5.40) Hemoglobin 11.4g/dL (12.0-15.5) Hematocrit 33.6% (36.0-47.0) Mean Corpuscular Volume 94fL (79-100) Mean Corpuscular Hemoglobin 32pg (25-35) Mean Corpuscular Hemoglobin Concent 34g/dL (31-37) Red Cell Distribution Width 14.6% (11.5-14.5) Platelet Count 212x10^3/uL (140-400) Neutrophils (%) (Auto) 63% (31-73) Lymphocytes (%) (Auto) 21% (24-48) Monocytes (%) (Auto) 10% (0-9) Eosinophils (%) (Auto) 6% (0-3) Basophils (%) (Auto) 1% (0-3) Neutrophils # (Auto) 4.6x10^3uL (1.8-7.7) Lymphocytes # (Auto) 1.5x10^3/uL (1.0-4.8) Monocytes # (Auto) 0.7x10^3/uL (0.0-1.1) Eosinophils # (Auto) 0.4x10^3/uL (0.0-0.7) Basophils # (Auto) 0.1x10^3/uL (0.0-0.2) Sodium Level 139mmol/L (136-145) Potassium Level 4.3mmol/L (3.5-5.1) Chloride Level 102mmol/L (98-107) Carbon Dioxide Level 26mmol/L (21-32) Anion Gap 11 (6-14) Blood Urea Nitrogen 45mg/dL (7-20) Creatinine 1.8mg/dL (0.6-1.0) Estimated GFR (Cockcroft-Gault) 26.7 Glucose Level 93mg/dL (70-99) Calcium Level 9.5mg/dL (8.5-10.1) Troponin I Quantitative 0.327ng/mL (0.000-0.055) ZL-Fao-F-Type Natriuretic Peptide 30938vu/mL (0-449) Laboratory Tests Test 12/01/16 12:58 12/01/16 13:55 12/01/16 16:45 12/01/16 21:20 White Blood Count 9.6x10^3/uL (4.0-11.0) Red Blood Count 4.19x10^6/uL (3.50-5.40) Hemoglobin 13.2g/dL (12.0-15.5) Hematocrit 38.8% (36.0-47.0) Mean Corpuscular Volume 93fL (79-100) Mean Corpuscular Hemoglobin 32pg (25-35) Mean Corpuscular Hemoglobin Concent 34g/dL (31-37) Red Cell Distribution Width 14.8% (11.5-14.5) Platelet Count 256x10^3/uL (140-400) Neutrophils (%) (Auto) 75% (31-73) Lymphocytes (%) (Auto) 14% (24-48) Monocytes (%) (Auto) 7% (0-9) Eosinophils (%) (Auto) 3% (0-3) Basophils (%) (Auto) 1% (0-3) Neutrophils # (Auto) 7.2x10^3uL (1.8-7.7) Lymphocytes # (Auto) 1.4x10^3/uL (1.0-4.8) Monocytes # (Auto) 0.7x10^3/uL (0.0-1.1) Eosinophils # (Auto) 0.3x10^3/uL (0.0-0.7) Basophils # (Auto) 0.1x10^3/uL (0.0-0.2) Prothrombin Time 13.3SEC (11.7-14.0) Prothromb Time International Ratio 1.1 (0.8-1.1) Activated Partial Thromboplast Time 30SEC (24-38) Sodium Level 136mmol/L (136-145) Potassium Level 4.5mmol/L (3.5-5.1) Chloride Level 101mmol/L (98-107) Carbon Dioxide Level 23mmol/L (21-32) Anion Gap 12 (6-14) Blood Urea Nitrogen 47mg/dL (7-20) Creatinine 2.0mg/dL (0.6-1.0) Estimated GFR (Cockcroft-Gault) 23.7 Glucose Level 117mg/dL (70-99) Calcium Level 9.8mg/dL (8.5-10.1) Total Bilirubin 0.7mg/dL (0.2-1.0) Direct Bilirubin 0.2mg/dL (0.0-0.2) Aspartate Amino Transf (AST/SGOT) 19U/L (15-37) Alanine Aminotransferase (ALT/SGPT) 12U/L (14-59) Alkaline Phosphatase 99U/L (46-116) Troponin I Quantitative 0.237ng/mL (0.000-0.055) 0.314ng/mL (0.000-0.055) Total Protein 8.0g/dL (6.4-8.2) Albumin 3.8g/dL (3.4-5.0) Lipase 200U/L (73-393) Urine Collection Type Unknown Urine Color Yellow Urine Clarity Clear Urine pH 5.5 Urine Specific [place] <=1.005 Urine Protein Negativemg/dL (NEG-TRACE) Urine Glucose (UA) Negativemg/dL (NEG) Urine Ketones (Stick) Negativemg/dL (NEG) Urine Blood Negative (NEG) Urine Nitrite Negative (NEG) Urine Bilirubin Negative (NEG) Urine Urobilinogen Dipstick 0.2mg/dL (0.2 mg/dL) Urine Leukocyte Esterase Large (NEG) Urine RBC Rare/HPF (0-2) Urine WBC >40/HPF (0-4) Urine Squamous Epithelial Cells Mod/LPF Urine Bacteria Moderate/HPF (0-FEW) Urine Hyaline Casts Occasional/HPF Urine Mucus Slight/LPF Nasal Screen MRSA (PCR) Negative (Negative) Test 12/02/16 03:30 White Blood Count 7.3x10^3/uL (4.0-11.0) Red Blood Count 3.58x10^6/uL (3.50-5.40) Hemoglobin 11.4g/dL (12.0-15.5) Hematocrit 33.6% (36.0-47.0) Mean Corpuscular Volume 94fL (79-100) Mean Corpuscular Hemoglobin 32pg (25-35) Mean Corpuscular Hemoglobin Concent 34g/dL (31-37) Red Cell Distribution Width 14.6% (11.5-14.5) Platelet Count 212x10^3/uL (140-400) Neutrophils (%) (Auto) 63% (31-73) Lymphocytes (%) (Auto) 21% (24-48) Monocytes (%) (Auto) 10% (0-9) Eosinophils (%) (Auto) 6% (0-3) Basophils (%) (Auto) 1% (0-3) Neutrophils # (Auto) 4.6x10^3uL (1.8-7.7) Lymphocytes # (Auto) 1.5x10^3/uL (1.0-4.8) Monocytes # (Auto) 0.7x10^3/uL (0.0-1.1) Eosinophils # (Auto) 0.4x10^3/uL (0.0-0.7) Basophils # (Auto) 0.1x10^3/uL (0.0-0.2) Sodium Level 139mmol/L (136-145) Potassium Level 4.3mmol/L (3.5-5.1) Chloride Level 102mmol/L (98-107) Carbon Dioxide Level 26mmol/L (21-32) Anion Gap 11 (6-14) Blood Urea Nitrogen 45mg/dL (7-20) Creatinine 1.8mg/dL (0.6-1.0) Estimated GFR (Cockcroft-Gault) 26.7 Glucose Level 93mg/dL (70-99) Calcium Level 9.5mg/dL (8.5-10.1) Troponin I Quantitative 0.327ng/mL (0.000-0.055) [id number]-Type Natriuretic Peptide 19211px/mL (0-449) Medications Active Scripts Medications Dose Route/Sig Days Date Category Senna (Sennosides) 8.6 Mg Tablet 8.6 Mg PO PRN DAILY PRN 12/01/16 Reported Norvasc (Amlodipine Besylate) 5 Mg Tablet 1 Tab PO DAILY 12/01/16 Reported Acetaminophen-Diphenhyd 500-25 (Acetaminophen/Diphenhydramine) 1 Each Tablet 1-2 Each PO HS 10/08/16 Reported Loperamide (Loperamide Hcl) 2 Mg Capsule 2 Mg PO Q4HRS PRN 10/08/16 Reported Calcium Carbonate 500 Mg Tablet 500 Mg PO QID 10/08/16 Reported Aspirin 81 Mg Tab.chew 1 Tab PO HS 10/08/16 Reported Prilosec Otc (Omeprazole Magnesium) 20 Mg Tablet.dr 1 Tab PO DAILY16 10/08/16 Reported Micardis (Telmisartan) 80 Mg Tablet 1 Tab PO DAILY08 10/08/16 Reported Lidoderm (Lidocaine) 700 Mg Adh..patch 1 Patch TP DAILY 10/08/16 Reported Metoprolol Succinate ( Xl ) (Metoprolol Succinate) 100 Mg Tab.er.24h 1 Tab PO DAILY07 10/08/16 Reported Clonazepam 0.25 Mg Tab.rapdis 0.25 Mg PO [id number] 10/08/16 Reported Synthroid (Levothyroxine Sodium) 88 Mcg Tablet 1 Tab PO DAILY06 10/08/16 Reported Furosemide 20 Mg Tablet 1 Tab PO [id number] 10/08/16 Reported Tylenol (Acetaminophen) 325 Mg Tablet 1-2 Tab PO Q4-6HRS PRN 10/08/16 Reported Acetaminophen 500 Mg Tablet 1-2 Supp.rect RC Q4-6HRS PRN 10/08/16 Reported Acetaminophen 500 Mg Tablet 1-2 Tab PO Q4-6HRS PRN 10/08/16 Reported Impression . 1. Status post mechanical fall after a syncopal episode. 2. Acute hypoxic respiratory failure, most likely secondary to mild congestive heart failure. She has interstitial markings been prominent and some mild basilar effusion along with cardiomegaly. We will obtain an echocardiogram. 3. No significant history of tobacco use. Plan . 1. ProBNP.26k. 2. Mild gentle diuresis. monitor renal function. 3. Obtain echocardiogram. 4. Follow Renal recommendation. 5. Follow Cardiology recommendation regarding any workup or syncope. 6. Discussed with entire family AMBAR BARRAGAN MD Dec 02, 2016 11:48
[2016-12-02] MEDS: ACETAMINOPHEN 325 MG TABLET. PO PRN ×2 (13:59→20:37)
[2016-12-02] MEDS ORDERED: [UNRECOGNIZED DRUG - OTHER] TP SCH (14:00)
--- NOTE | 2016-12-02 14:01 | PDOC ---
PROGRESS NOTES Chief Complaint Chief Complaint UTI fall and concussion Severe symptomatic w/ troponinemia secondary Near syncope acute on chronic Diastolic heart failure recent SDH from a fall History of Present Illness History of Present Illness pulm and CV following downgrade out of ICU treat UTI head lac is healing PT And OT consider TAVR as outpatient, CV following, Vitals Vitals Vital Signs Date Time Temp Pulse Resp B/P Pulse Ox O2 Delivery O2 Flow Rate FiO2 12/02/16 12:00 98.6 72 20 103/45 92 Room Air 98.6 12/02/16 08:00 2.0 Physical Exam General: Alert, Oriented X3, Cooperative, No acute distress Heart: Regular rate, No murmurs, Other (11/27 Cr/Decr murmur RUSB radiating to left carotid. Soft S2) Lungs: Clear Abdomen: Normal bowel sounds, Soft Extremities: No edema Skin: No rashes Labs LABS Laboratory Tests Test 12/01/16 16:45 12/01/16 21:20 12/02/16 03:30 Nasal Screen MRSA (PCR) Negative (Negative) Troponin I Quantitative 0.314ng/mL (0.000-0.055) 0.327ng/mL (0.000-0.055) White Blood Count 7.3x10^3/uL (4.0-11.0) Red Blood Count 3.58x10^6/uL (3.50-5.40) Hemoglobin 11.4g/dL (12.0-15.5) Hematocrit 33.6% (36.0-47.0) Mean Corpuscular Volume 94fL (79-100) Mean Corpuscular Hemoglobin 32pg (25-35) Mean Corpuscular Hemoglobin Concent 34g/dL (31-37) Red Cell Distribution Width 14.6% (11.5-14.5) Platelet Count 212x10^3/uL (140-400) Neutrophils (%) (Auto) 63% (31-73) Lymphocytes (%) (Auto) 21% (24-48) Monocytes (%) (Auto) 10% (0-9) Eosinophils (%) (Auto) 6% (0-3) Basophils (%) (Auto) 1% (0-3) Neutrophils # (Auto) 4.6x10^3uL (1.8-7.7) Lymphocytes # (Auto) 1.5x10^3/uL (1.0-4.8) Monocytes # (Auto) 0.7x10^3/uL (0.0-1.1) Eosinophils # (Auto) 0.4x10^3/uL (0.0-0.7) Basophils # (Auto) 0.1x10^3/uL (0.0-0.2) Sodium Level 139mmol/L (136-145) Potassium Level 4.3mmol/L (3.5-5.1) Chloride Level 102mmol/L (98-107) Carbon Dioxide Level 26mmol/L (21-32) Anion Gap 11 (6-14) Blood Urea Nitrogen 45mg/dL (7-20) Creatinine 1.8mg/dL (0.6-1.0) Estimated GFR (Cockcroft-Gault) 26.7 Glucose Level 93mg/dL (70-99) Calcium Level 9.5mg/dL (8.5-10.1) PW-Ael-Q-Type Natriuretic Peptide 73008xb/mL (0-449) Review of Systems Review of Systems no n/v/d Assessment and Plan Assessmemt and Plan Problems Medical Problems: (1) CKD (chronic kidney disease) Status: Acute (2) Compression fx, thoracic spine Status: Acute (3) Diastolic heart failure Status: Acute (4) Hypoxia Status: Acute (5) Non-STEMI (non-ST elevated myocardial infarction) Status: Acute (6) Severe aortic stenosis Status: Acute (7) Subdural hemorrhage following injury Status: Acute (8) Urinary tract infection Status: Acute Problems: Comment Review of Relevant I have reviewed the following items issa (where applicable) has been applied. Labs Laboratory Tests Test 12/01/16 12:58 12/01/16 13:55 12/01/16 16:45 12/01/16 21:20 White Blood Count 9.6x10^3/uL (4.0-11.0) Red Blood Count 4.19x10^6/uL (3.50-5.40) Hemoglobin 13.2g/dL (12.0-15.5) Hematocrit 38.8% (36.0-47.0) Mean Corpuscular Volume 93fL (79-100) Mean Corpuscular Hemoglobin 32pg (25-35) Mean Corpuscular Hemoglobin Concent 34g/dL (31-37) Red Cell Distribution Width 14.8% (11.5-14.5) Platelet Count 256x10^3/uL (140-400) Neutrophils (%) (Auto) 75% (31-73) Lymphocytes (%) (Auto) 14% (24-48) Monocytes (%) (Auto) 7% (0-9) Eosinophils (%) (Auto) 3% (0-3) Basophils (%) (Auto) 1% (0-3) Neutrophils # (Auto) 7.2x10^3uL (1.8-7.7) Lymphocytes # (Auto) 1.4x10^3/uL (1.0-4.8) Monocytes # (Auto) 0.7x10^3/uL (0.0-1.1) Eosinophils # (Auto) 0.3x10^3/uL (0.0-0.7) Basophils # (Auto) 0.1x10^3/uL (0.0-0.2) Prothrombin Time 13.3SEC (11.7-14.0) Prothromb Time International Ratio 1.1 (0.8-1.1) Activated Partial Thromboplast Time 30SEC (24-38) Sodium Level 136mmol/L (136-145) Potassium Level 4.5mmol/L (3.5-5.1) Chloride Level 101mmol/L (98-107) Carbon Dioxide Level 23mmol/L (21-32) Anion Gap 12 (6-14) Blood Urea Nitrogen 47mg/dL (7-20) Creatinine 2.0mg/dL (0.6-1.0) Estimated GFR (Cockcroft-Gault) 23.7 Glucose Level 117mg/dL (70-99) Calcium Level 9.8mg/dL (8.5-10.1) Total Bilirubin 0.7mg/dL (0.2-1.0) Direct Bilirubin 0.2mg/dL (0.0-0.2) Aspartate Amino Transf (AST/SGOT) 19U/L (15-37) Alanine Aminotransferase (ALT/SGPT) 12U/L (14-59) Alkaline Phosphatase 99U/L (46-116) Troponin I Quantitative 0.237ng/mL (0.000-0.055) 0.314ng/mL (0.000-0.055) Total Protein 8.0g/dL (6.4-8.2) Albumin 3.8g/dL (3.4-5.0) Lipase 200U/L (73-393) Urine Collection Type Unknown Urine Color Yellow Urine Clarity Clear Urine pH 5.5 Urine Specific [place] <=1.005 Urine Protein Negativemg/dL (NEG-TRACE) Urine Glucose (UA) Negativemg/dL (NEG) Urine Ketones (Stick) Negativemg/dL (NEG) Urine Blood Negative (NEG) Urine Nitrite Negative (NEG) Urine Bilirubin Negative (NEG) Urine Urobilinogen Dipstick 0.2mg/dL (0.2 mg/dL) Urine Leukocyte Esterase Large (NEG) Urine RBC Rare/HPF (0-2) Urine WBC >40/HPF (0-4) Urine Squamous Epithelial Cells Mod/LPF Urine Bacteria Moderate/HPF (0-FEW) Urine Hyaline Casts Occasional/HPF Urine Mucus Slight/LPF Nasal Screen MRSA (PCR) Negative (Negative) Test 12/02/16 03:30 White Blood Count 7.3x10^3/uL (4.0-11.0) Red Blood Count 3.58x10^6/uL (3.50-5.40) Hemoglobin 11.4g/dL (12.0-15.5) Hematocrit 33.6% (36.0-47.0) Mean Corpuscular Volume 94fL (79-100) Mean Corpuscular Hemoglobin 32pg (25-35) Mean Corpuscular Hemoglobin Concent 34g/dL (31-37) Red Cell Distribution Width 14.6% (11.5-14.5) Platelet Count 212x10^3/uL (140-400) Neutrophils (%) (Auto) 63% (31-73) Lymphocytes (%) (Auto) 21% (24-48) Monocytes (%) (Auto) 10% (0-9) Eosinophils (%) (Auto) 6% (0-3) Basophils (%) (Auto) 1% (0-3) Neutrophils # (Auto) 4.6x10^3uL (1.8-7.7) Lymphocytes # (Auto) 1.5x10^3/uL (1.0-4.8) Monocytes # (Auto) 0.7x10^3/uL (0.0-1.1) Eosinophils # (Auto) 0.4x10^3/uL (0.0-0.7) Basophils # (Auto) 0.1x10^3/uL (0.0-0.2) Sodium Level 139mmol/L (136-145) Potassium Level 4.3mmol/L (3.5-5.1) Chloride Level 102mmol/L (98-107) Carbon Dioxide Level 26mmol/L (21-32) Anion Gap 11 (6-14) Blood Urea Nitrogen 45mg/dL (7-20) Creatinine 1.8mg/dL (0.6-1.0) Estimated GFR (Cockcroft-Gault) 26.7 Glucose Level 93mg/dL (70-99) Calcium Level 9.5mg/dL (8.5-10.1) Troponin I Quantitative 0.327ng/mL (0.000-0.055) RZ-Gtn-X-Type Natriuretic Peptide 92583hx/mL (0-449) Laboratory Tests Test 12/01/16 16:45 12/01/16 21:20 12/02/16 03:30 Nasal Screen MRSA (PCR) Negative (Negative) Troponin I Quantitative 0.314ng/mL (0.000-0.055) 0.327ng/mL (0.000-0.055) White Blood Count 7.3x10^3/uL (4.0-11.0) Red Blood Count 3.58x10^6/uL (3.50-5.40) Hemoglobin 11.4g/dL (12.0-15.5) Hematocrit 33.6% (36.0-47.0) Mean Corpuscular Volume 94fL (79-100) Mean Corpuscular Hemoglobin 32pg (25-35) Mean Corpuscular Hemoglobin Concent 34g/dL (31-37) Red Cell Distribution Width 14.6% (11.5-14.5) Platelet Count 212x10^3/uL (140-400) Neutrophils (%) (Auto) 63% (31-73) Lymphocytes (%) (Auto) 21% (24-48) Monocytes (%) (Auto) 10% (0-9) Eosinophils (%) (Auto) 6% (0-3) Basophils (%) (Auto) 1% (0-3) Neutrophils # (Auto) 4.6x10^3uL (1.8-7.7) Lymphocytes # (Auto) 1.5x10^3/uL (1.0-4.8) Monocytes # (Auto) 0.7x10^3/uL (0.0-1.1) Eosinophils # (Auto) 0.4x10^3/uL (0.0-0.7) Basophils # (Auto) 0.1x10^3/uL (0.0-0.2) Sodium Level 139mmol/L (136-145) Potassium Level 4.3mmol/L (3.5-5.1) Chloride Level 102mmol/L (98-107) Carbon Dioxide Level 26mmol/L (21-32) Anion Gap 11 (6-14) Blood Urea Nitrogen 45mg/dL (7-20) Creatinine 1.8mg/dL (0.6-1.0) Estimated GFR (Cockcroft-Gault) 26.7 Glucose Level 93mg/dL (70-99) Calcium Level 9.5mg/dL (8.5-10.1) NZ-Tfw-O-Type Natriuretic Peptide 19029aw/mL (0-449) Medications Current Medications Hydromorphone HCl (Dilaudid) 0.5 mg PRN Q1HR PRN IV SEVERE PAIN Last administered on 12/01/16 14:15; Start 12/01/16 at 14:15 Ondansetron HCl 4 mg 4 mg 1X ONCE IV Last administered on 12/01/16 14:15; Start 12/01/16 at 14:15; Stop 12/01/16 at 14:25; Status DC Ceftriaxone Sodium (Rocephin 1gm Ivpb For Omni) 50 ml @ 100 mls/hr 1X ONCE IV Last administered on 12/01/16 15:42; Start 12/01/16 at 15:15; Stop 12/01/16 at 15:44; Status DC Aspirin 324 mg 324 mg 1X ONCE PO ; Start 12/01/16 at 15:15; Stop 12/01/16 at 15 :20; Status DC Sodium Chloride (Iv Sodium Chloride 0.9% 500ml Bag) 500 ml @ 500 mls/hr 1X ONCE IV Last administered on 12/01/16 15:44; Start 12/01/16 at 15:15; Stop 07/10 at 16:14; Status DC Ondansetron HCl (Zofran) 4 mg PRN Q8HRS PRN IV NAUSEA/VOMITING; Start 12/01/16 at 15:15; Stop 12/02/16 at 15:14 Morphine Sulfate 2 mg 2 mg PRN Q2HR PRN IV PAIN; Start 12/01/16 at 15:15; Stop 12/02/16 at 15:14 Ceftriaxone Sodium/Sodium Chloride (Rocephin/Iv Sodium Chloride 0.9% 50ml) 50 ml @ 100 mls/hr Q24H IV ; Start 12/02/16 at 16:00 Acetaminophen (Tylenol) 325 mg PRN Q4HRS PRN PO PAIN; Start 12/01/16 at 15:45 Aspirin (Children'S Aspirin) 81 mg HS PO Last administered on 12/01/16 20:49; Start 12/01/16 at 21:00 Calcium Carbonate/ Glycine (Oscal) 500 mg QID PO Last administered on 12:47; Start 12/01/16 at 17:00 Levothyroxine Sodium (Synthroid) 88 mcg DAILY06 PO Last administered on 05:20; Start 12/02/16 at 06:00 Lidocaine (Lidoderm) 1 patch DAILY TP Last administered on 12/02/16 09:27; Start 12/02/16 at 09:00 Loperamide HCl (Imodium) 2 mg PRN Q4HRS PRN PO DIARRHEA; Start 12/01/16 at 15: 45 Metoprolol Succinate (Toprol Xl) 100 mg DAILY07 PO ; Start 12/01/16 at 16:00; Stop 12/02/16 at 05:34; Status DC Clonazepam (Klonopin) 0.25 mg [id number] PO Last administered on 12/02/16 05:20; Start 12/01/16 at 16:00 Pantoprazole Sodium (Protonix) 40 mg DAILY16 PO Last administered on 12/01/16 17:53; Start 12/01/16 at 16:00 Furosemide (Lasix) 20 mg 1X ONCE IVP Last administered on 12/01/16 17:57; Start 12/01/16 at 17:00; Stop 12/01/16 at 17:01; Status DC Amlodipine Besylate (Norvasc) 5 mg DAILY PO Last administered on 12/02/16 09: 23; Start 12/01/16 at 18:45 Sennosides (Senna) 8.6 mg PRN DAILY PRN PO CONSTIPATION; Start 12/01/16 at 18: 15 Diphenhydramine HCl (Benadryl) 25 mg PRN QHS PRN PO INSOMNIA Last administered on 12/01/16 20:49; Start 12/01/16 at 20:45 Metoprolol Succinate (Toprol Xl) 100 mg DAILY PO Last administered on 09:28; Start 12/02/16 at 09:00 Non-Formulary Medication 1 ea WeSa@09 TP ; Start 12/02/16 at 14:00 Active Scripts Active Reported Senna (Sennosides) 8.6 Mg Tablet 8.6 Mg PO PRN DAILY PRN Norvasc (Amlodipine Besylate) 5 Mg Tablet 1 Tab PO DAILY Acetaminophen-Diphenhyd 500-25 (Acetaminophen/Diphenhydramine) 1 Each Tablet 1- 2 Each PO HS Loperamide (Loperamide Hcl) 2 Mg Capsule 2 Mg PO Q4HRS PRN Calcium Carbonate 500 Mg Tablet 500 Mg PO QID Aspirin 81 Mg Tab.chew 1 Tab PO HS Prilosec Otc (Omeprazole Magnesium) 20 Mg Tablet.dr 1 Tab PO DAILY16 Micardis (Telmisartan) 80 Mg Tablet 1 Tab PO DAILY08 Lidoderm (Lidocaine) 700 Mg Adh..patch 1 Patch TP DAILY Metoprolol Succinate ( Xl ) (Metoprolol Succinate) 100 Mg Tab.er.24h 1 Tab PO DAILY07 Clonazepam 0.25 Mg Tab.rapdis 0.25 Mg PO [id number] Synthroid (Levothyroxine Sodium) 88 Mcg Tablet 1 Tab PO DAILY06 Furosemide 20 Mg Tablet 1 Tab PO DAILYWBKFT Tylenol (Acetaminophen) 325 Mg Tablet 1-2 Tab PO Q4-6HRS PRN Acetaminophen 500 Mg Tablet 1-2 Supp.rect RC Q4-6HRS PRN Acetaminophen 500 Mg Tablet 1-2 Tab PO Q4-6HRS PRN Vitals/I & O Vital Sign - Last 24 Hours 12/01/16 12/01/16 12/01/16 12/01/16 14:15 14:16 14:45 14:45 Pulse 69 Resp 20 B/P 138/62 Pulse Ox 97 O2 Delivery Nasal Cannula Nasal Cannula Nasal Cannula O2 Flow Rate 3.5 2.0 3.0 12/01/16 12/01/16 12/01/16 12/01/16 15:15 15:16 16:30 16:45 Pulse 72 67 62 B/P 144/79 124/60 130/73 113/57 Pulse Ox 98 O2 Delivery Nasal Cannula O2 Flow Rate 3.5 12/01/16 12/01/16 12/01/16 12/01/16 17:00 19:00 20:00 23:00 Temp 97.3 98.0 98.0 97.3 98.0 98.0 Pulse 62 62 60 Resp 18 18 B/P 154/89 100/51 132/59 Pulse Ox 99 96 O2 Delivery Nasal Cannula Nasal Cannula Nasal Cannula O2 Flow Rate 2.0 2.0 2.0 12/02/16 12/02/16 12/02/16 12/02/16 03:00 07:44 08:00 09:23 Temp 98.2 98.2 Pulse 69 75 Resp 18 16 B/P 111/65 126/73 126/66 Pulse Ox 96 97 O2 Delivery Nasal Cannula Nasal Cannula O2 Flow Rate 2.0 2.0 2.0 12/02/16 12/02/16 09:28 12:00 Temp 98.6 98.6 Pulse 79 72 Resp 20 B/P 126/58 103/45 Pulse Ox 92 O2 Delivery Room Air Intake and Output 12/01/16 12/01/16 12/02/16 15:00 23:00 07:00 Intake Total 1120 ml 50 ml Output Total 600 ml 700 ml Balance 520 ml -650 ml HARRY FUCHS MD Dec 02, 2016 14:00
[2016-12-02] MEDS: CEFTRIAXONE SODIUM 1 GM in IV NORMAL SALINE 50ML 50 ML IV SCH (16:56)
[2016-12-02] MEDS: PANTOPRAZOLE 40 MG TABLET. PO SCH (16:56)
[2016-12-02] MEDS: DIPHENHYDRAMINE HCL 25 MG CAPSULE PO PRN (20:37)
--- NOTE | 2016-12-02 22:45 | PDOC2 ---
CONSULT Date of Consult Date of Consult DATE: 12/02/16 TIME: 22:44 Past Medical History Cardiovascular: CHF, HTN CENTRAL NERVOUS SYSTEM: Other Endocrine: Hypothyroidism Past Surgical History Past Surgical History: Other Family History Family History: Coronary Artery Disease Social History No ALCOHOL: none Drugs: None Current Problem List Problem List Problems Medical Problems: (1) CKD (chronic kidney disease) Status: Acute (2) Compression fx, thoracic spine Status: Acute (3) Diastolic heart failure Status: Acute (4) Hypoxia Status: Acute (5) Non-STEMI (non-ST elevated myocardial infarction) Status: Acute (6) Severe aortic stenosis Status: Acute (7) Subdural hemorrhage following injury Status: Acute (8) Urinary tract infection Status: Acute Current Medications Current Medications Current Medications Hydromorphone HCl (Dilaudid) 0.5 mg PRN Q1HR PRN IV SEVERE PAIN Last administered on 12/01/16 14:15; Start 12/01/16 at 14:15 Ondansetron HCl 4 mg 4 mg 1X ONCE IV Last administered on 12/01/16 14:15; Start 12/01/16 at 14:15; Stop 12/01/16 at 14:25; Status DC Ceftriaxone Sodium (Rocephin 1gm Ivpb For Omni) 50 ml @ 100 mls/hr 1X ONCE IV Last administered on 12/01/16 15:42; Start 12/01/16 at 15:15; Stop 12/01/16 at 15:44; Status DC Aspirin 324 mg 324 mg 1X ONCE PO ; Start 12/01/16 at 15:15; Stop 12/01/16 at 15 :20; Status DC Sodium Chloride (Iv Sodium Chloride 0.9% 500ml Bag) 500 ml @ 500 mls/hr 1X ONCE IV Last administered on 12/01/16 15:44; Start 12/01/16 at 15:15; Stop 07/10 at 16:14; Status DC Ondansetron HCl (Zofran) 4 mg PRN Q8HRS PRN IV NAUSEA/VOMITING; Start 12/01/16 at 15:15; Stop 12/02/16 at 15:14; Status DC Morphine Sulfate 2 mg 2 mg PRN Q2HR PRN IV PAIN; Start 12/01/16 at 15:15; Stop 12/02/16 at 15:14; Status DC Ceftriaxone Sodium/Sodium Chloride (Rocephin/Iv Sodium Chloride 0.9% 50ml) 50 ml @ 100 mls/hr Q24H IV Last administered on 12/02/16 16:56; Start 12/02/16 at 16:00 Acetaminophen (Tylenol) 325 mg PRN Q4HRS PRN PO PAIN Last administered on 20:37; Start 12/01/16 at 15:45 Aspirin (Children'S Aspirin) 81 mg HS PO Last administered on 12/01/16 20:49; Start 12/01/16 at 21:00; Stop 12/02/16 at 19:13; Status DC Calcium Carbonate/ Glycine (Oscal) 500 mg QID PO Last administered on 20:36; Start 12/01/16 at 17:00 Levothyroxine Sodium (Synthroid) 88 mcg DAILY06 PO Last administered on 05:20; Start 12/02/16 at 06:00 Lidocaine (Lidoderm) 1 patch DAILY TP Last administered on 12/02/16 09:27; Start 12/02/16 at 09:00 Loperamide HCl (Imodium) 2 mg PRN Q4HRS PRN PO DIARRHEA; Start 12/01/16 at 15: 45 Metoprolol Succinate (Toprol Xl) 100 mg DAILY07 PO ; Start 12/01/16 at 16:00; Stop 12/02/16 at 05:34; Status DC Clonazepam (Klonopin) 0.25 mg [id number] PO Last administered on 12/02/16 20:37; Start 12/01/16 at 16:00 Pantoprazole Sodium (Protonix) 40 mg DAILY16 PO Last administered on 12/02/16 16:56; Start 12/01/16 at 16:00 Furosemide (Lasix) 20 mg 1X ONCE IVP Last administered on 12/01/16 17:57; Start 12/01/16 at 17:00; Stop 12/01/16 at 17:01; Status DC Amlodipine Besylate (Norvasc) 5 mg DAILY PO Last administered on 12/02/16 09: 23; Start 12/01/16 at 18:45 Sennosides (Senna) 8.6 mg PRN DAILY PRN PO CONSTIPATION; Start 12/01/16 at 18: 15 Diphenhydramine HCl (Benadryl) 25 mg PRN QHS PRN PO INSOMNIA Last administered on 12/02/16 20:37; Start 12/01/16 at 20:45 Metoprolol Succinate (Toprol Xl) 100 mg DAILY PO Last administered on 09:28; Start 12/02/16 at 09:00 Non-Formulary Medication 1 jaime Molina@09 TP ; Start 12/02/16 at 14:00 Active Scripts Active Reported Senna (Sennosides) 8.6 Mg Tablet 8.6 Mg PO PRN DAILY PRN Norvasc (Amlodipine Besylate) 5 Mg Tablet 1 Tab PO DAILY Acetaminophen-Diphenhyd 500-25 (Acetaminophen/Diphenhydramine) 1 Each Tablet 1- 2 Each PO HS Loperamide (Loperamide Hcl) 2 Mg Capsule 2 Mg PO Q4HRS PRN Calcium Carbonate 500 Mg Tablet 500 Mg PO QID Aspirin 81 Mg Tab.chew 1 Tab PO HS Prilosec Otc (Omeprazole Magnesium) 20 Mg Tablet.dr 1 Tab PO DAILY16 Micardis (Telmisartan) 80 Mg Tablet 1 Tab PO DAILY08 Lidoderm (Lidocaine) 700 Mg Adh..patch 1 Patch TP DAILY Metoprolol Succinate ( Xl ) (Metoprolol Succinate) 100 Mg Tab.er.24h 1 Tab PO DAILY07 Clonazepam 0.25 Mg Tab.rapdis 0.25 Mg PO [id number] Synthroid (Levothyroxine Sodium) 88 Mcg Tablet 1 Tab PO DAILY06 Furosemide 20 Mg Tablet 1 Tab PO DAILYWBKFT Tylenol (Acetaminophen) 325 Mg Tablet 1-2 Tab PO Q4-6HRS PRN Acetaminophen 500 Mg Tablet 1-2 Supp.rect RC Q4-6HRS PRN Acetaminophen 500 Mg Tablet 1-2 Tab PO Q4-6HRS PRN Allergies Allergies: Coded Allergies: Iodine and Iodide Containing Produc (Verified Allergy, Intermediate, ) Vitals VITALS Vital Signs Date Time Temp Pulse Resp B/P Pulse Ox O2 Delivery O2 Flow Rate FiO2 12/02/16 19:48 Nasal Cannula 2.0 12/02/16 19:15 98.4 68 18 108/34 94 98.4 Labs Labs Laboratory Tests Test 12/01/16 12:58 12/01/16 13:55 12/01/16 16:45 12/01/16 21:20 White Blood Count 9.6x10^3/uL (4.0-11.0) Red Blood Count 4.19x10^6/uL (3.50-5.40) Hemoglobin 13.2g/dL (12.0-15.5) Hematocrit 38.8% (36.0-47.0) Mean Corpuscular Volume 93fL (79-100) Mean Corpuscular Hemoglobin 32pg (25-35) Mean Corpuscular Hemoglobin Concent 34g/dL (31-37) Red Cell Distribution Width 14.8% (11.5-14.5) Platelet Count 256x10^3/uL (140-400) Neutrophils (%) (Auto) 75% (31-73) Lymphocytes (%) (Auto) 14% (24-48) Monocytes (%) (Auto) 7% (0-9) Eosinophils (%) (Auto) 3% (0-3) Basophils (%) (Auto) 1% (0-3) Neutrophils # (Auto) 7.2x10^3uL (1.8-7.7) Lymphocytes # (Auto) 1.4x10^3/uL (1.0-4.8) Monocytes # (Auto) 0.7x10^3/uL (0.0-1.1) Eosinophils # (Auto) 0.3x10^3/uL (0.0-0.7) Basophils # (Auto) 0.1x10^3/uL (0.0-0.2) Prothrombin Time 13.3SEC (11.7-14.0) Prothromb Time International Ratio 1.1 (0.8-1.1) Activated Partial Thromboplast Time 30SEC (24-38) Sodium Level 136mmol/L (136-145) Potassium Level 4.5mmol/L (3.5-5.1) Chloride Level 101mmol/L (98-107) Carbon Dioxide Level 23mmol/L (21-32) Anion Gap 12 (6-14) Blood Urea Nitrogen 47mg/dL (7-20) Creatinine 2.0mg/dL (0.6-1.0) Estimated GFR (Cockcroft-Gault) 23.7 Glucose Level 117mg/dL (70-99) Calcium Level 9.8mg/dL (8.5-10.1) Total Bilirubin 0.7mg/dL (0.2-1.0) Direct Bilirubin 0.2mg/dL (0.0-0.2) Aspartate Amino Transf (AST/SGOT) 19U/L (15-37) Alanine Aminotransferase (ALT/SGPT) 12U/L (14-59) Alkaline Phosphatase 99U/L (46-116) Troponin I Quantitative 0.237ng/mL (0.000-0.055) 0.314ng/mL (0.000-0.055) Total Protein 8.0g/dL (6.4-8.2) Albumin 3.8g/dL (3.4-5.0) Lipase 200U/L (73-393) Urine Collection Type Unknown Urine Color Yellow Urine Clarity Clear Urine pH 5.5 Urine Specific [place] <=1.005 Urine Protein Negativemg/dL (NEG-TRACE) Urine Glucose (UA) Negativemg/dL (NEG) Urine Ketones (Stick) Negativemg/dL (NEG) Urine Blood Negative (NEG) Urine Nitrite Negative (NEG) Urine Bilirubin Negative (NEG) Urine Urobilinogen Dipstick 0.2mg/dL (0.2 mg/dL) Urine Leukocyte Esterase Large (NEG) Urine RBC Rare/HPF (0-2) Urine WBC >40/HPF (0-4) Urine Squamous Epithelial Cells Mod/LPF Urine Bacteria Moderate/HPF (0-FEW) Urine Hyaline Casts Occasional/HPF Urine Mucus Slight/LPF Nasal Screen MRSA (PCR) Negative (Negative) Test 12/02/16 03:30 White Blood Count 7.3x10^3/uL (4.0-11.0) Red Blood Count 3.58x10^6/uL (3.50-5.40) Hemoglobin 11.4g/dL (12.0-15.5) Hematocrit 33.6% (36.0-47.0) Mean Corpuscular Volume 94fL (79-100) Mean Corpuscular Hemoglobin 32pg (25-35) Mean Corpuscular Hemoglobin Concent 34g/dL (31-37) Red Cell Distribution Width 14.6% (11.5-14.5) Platelet Count 212x10^3/uL (140-400) Neutrophils (%) (Auto) 63% (31-73) Lymphocytes (%) (Auto) 21% (24-48) Monocytes (%) (Auto) 10% (0-9) Eosinophils (%) (Auto) 6% (0-3) Basophils (%) (Auto) 1% (0-3) Neutrophils # (Auto) 4.6x10^3uL (1.8-7.7) Lymphocytes # (Auto) 1.5x10^3/uL (1.0-4.8) Monocytes # (Auto) 0.7x10^3/uL (0.0-1.1) Eosinophils # (Auto) 0.4x10^3/uL (0.0-0.7) Basophils # (Auto) 0.1x10^3/uL (0.0-0.2) Sodium Level 139mmol/L (136-145) Potassium Level 4.3mmol/L (3.5-5.1) Chloride Level 102mmol/L (98-107) Carbon Dioxide Level 26mmol/L (21-32) Anion Gap 11 (6-14) Blood Urea Nitrogen 45mg/dL (7-20) Creatinine 1.8mg/dL (0.6-1.0) Estimated GFR (Cockcroft-Gault) 26.7 Glucose Level 93mg/dL (70-99) Calcium Level 9.5mg/dL (8.5-10.1) Troponin I Quantitative 0.327ng/mL (0.000-0.055) SQ-Tpv-O-Type Natriuretic Peptide 10988sh/mL (0-449) Laboratory Tests Test 12/02/16 03:30 White Blood Count 7.3x10^3/uL (4.0-11.0) Red Blood Count 3.58x10^6/uL (3.50-5.40) Hemoglobin 11.4g/dL (12.0-15.5) Hematocrit 33.6% (36.0-47.0) Mean Corpuscular Volume 94fL (79-100) Mean Corpuscular Hemoglobin 32pg (25-35) Mean Corpuscular Hemoglobin Concent 34g/dL (31-37) Red Cell Distribution Width 14.6% (11.5-14.5) Platelet Count 212x10^3/uL (140-400) Neutrophils (%) (Auto) 63% (31-73) Lymphocytes (%) (Auto) 21% (24-48) Monocytes (%) (Auto) 10% (0-9) Eosinophils (%) (Auto) 6% (0-3) Basophils (%) (Auto) 1% (0-3) Neutrophils # (Auto) 4.6x10^3uL (1.8-7.7) Lymphocytes # (Auto) 1.5x10^3/uL (1.0-4.8) Monocytes # (Auto) 0.7x10^3/uL (0.0-1.1) Eosinophils # (Auto) 0.4x10^3/uL (0.0-0.7) Basophils # (Auto) 0.1x10^3/uL (0.0-0.2) Sodium Level 139mmol/L (136-145) Potassium Level 4.3mmol/L (3.5-5.1) Chloride Level 102mmol/L (98-107) Carbon Dioxide Level 26mmol/L (21-32) Anion Gap 11 (6-14) Blood Urea Nitrogen 45mg/dL (7-20) Creatinine 1.8mg/dL (0.6-1.0) Estimated GFR (Cockcroft-Gault) 26.7 Glucose Level 93mg/dL (70-99) Calcium Level 9.5mg/dL (8.5-10.1) Troponin I Quantitative 0.327ng/mL (0.000-0.055) AM-Jnx-Y-Type Natriuretic Peptide 22123jk/mL (0-449) Assessment/Plan Assessment/Plan RENAL CONSULT / RHONA Dictated. See orders Ext d/w pt and family CPM. Thank you. MICKEY MELGOZA MD Dec 02, 2016 22:45
[2016-12-03 03:00] VITALS: BP 116/54
[2016-12-03] MEDS: ACETAMINOPHEN 325 MG TABLET. PO PRN ×2 (04:48→19:21)
[2016-12-03] MEDS: CLONAZEPAM 0.5 MG TABLET PO SCH ×5 (05:46→21:14)
[2016-12-03] MEDS: LEVOTHYROXINE 88 MCG TABLET PO SCH (06:23)
[2016-12-03 06:45] LABS: BASO # 0.1 x10^3/uL (0.0-0.2); BASO % 1 % (0-3); EOS % 8 % (0-3); HEMATOCRIT 32.8 % (36.0-47.0); HEMOGLOBIN 10.7 g/dL (12.0-15.5); LYMPH # 1.8 x10^3/uL (1.0-4.8); LYMPH % 25 % (24-48); MEAN CORPUSCULAR HEMOGLOBIN 31 pg (25-35); MEAN CORPUSCULAR HGB CONC 33 g/dL (31-37); MEAN CORPUSCULAR VOLUME 94 fL (79-100); MONO % 10 % (0-9); NEUT % 56 % (31-73); PLATELET COUNT 210 x10^3/uL (140-400); RED BLOOD COUNT 3.48 x10^6/uL (3.50-5.40); RED CELL DISTRIBUTION WIDTH 14.9 % (11.5-14.5); WHITE BLOOD COUNT 7.5 x10^3/uL (4.0-11.0)
[2016-12-03 06:54] LABS: ALBUMIN 3.1 g/dL (3.4-5.0); ALBUMIN/GLOBULIN RATIO 0.8 (1.0-1.7); CALCIUM 9.4 mg/dL (8.5-10.1); CREATININE 1.8 mg/dL (0.6-1.0); GFR 26.7; POTASSIUM 4.1 mmol/L (3.5-5.1); TOTAL BILIRUBIN 0.6 mg/dL (0.2-1.0); TOTAL PROTEIN 6.8 g/dL (6.4-8.2)
[2016-12-03 07:00] VITALS: BP 142/63
[2016-12-03] MEDS: CALCIUM CARBONATE 500 MG TABLET PO SCH ×4 (09:09→21:13)
[2016-12-03] MEDS: AMLODIPINE BESYLATE 5 MG TABLET PO SCH (09:10)
[2016-12-03] MEDS: METOPROLOL SUCC 24HR ER 100 MG TAB.ER.24H. PO SCH (09:10)
[2016-12-03] MEDS: LIDOCAINE (700MG/PATCH) PATCH. TP SCH (09:11)
[2016-12-03 11:00] VITALS: BP 103/46
--- NOTE | 2016-12-03 11:54 | PDOC ---
PROGRESS NOTES Chief Complaint Chief Complaint UTI fall and concussion Severe symptomatic w/ troponinemia secondary Near syncope acute on chronic Diastolic heart failure recent SDH from a fall History of Present Illness History of Present Illness feels well, seems opposed to interventions for , plan echo treat UTI head lac is healing well PT And OT to continue should be able to return to the mother house tomorrow Vitals Vitals Vital Signs Date Time Temp Pulse Resp B/P Pulse Ox O2 Delivery O2 Flow Rate FiO2 12/03/16 09:10 67 142/63 12/03/16 07:24 Room Air 12/03/16 07:00 97.8 18 94 97.8 12/02/16 19:48 2.0 Physical Exam General: Alert, Oriented X3, Cooperative, No acute distress Heart: Regular rate, No murmurs, Other (11/27 Cr/Decr murmur RUSB radiating to left carotid. Soft S2) Lungs: Clear Abdomen: Normal bowel sounds, Soft Extremities: No edema Skin: No rashes Labs LABS Laboratory Tests Test 12/03/16 05:00 White Blood Count 7.5x10^3/uL (4.0-11.0) Red Blood Count 3.48x10^6/uL (3.50-5.40) Hemoglobin 10.7g/dL (12.0-15.5) Hematocrit 32.8% (36.0-47.0) Mean Corpuscular Volume 94fL (79-100) Mean Corpuscular Hemoglobin 31pg (25-35) Mean Corpuscular Hemoglobin Concent 33g/dL (31-37) Red Cell Distribution Width 14.9% (11.5-14.5) Platelet Count 210x10^3/uL (140-400) Neutrophils (%) (Auto) 56% (31-73) Lymphocytes (%) (Auto) 25% (24-48) Monocytes (%) (Auto) 10% (0-9) Eosinophils (%) (Auto) 8% (0-3) Basophils (%) (Auto) 1% (0-3) Neutrophils # (Auto) 4.2x10^3uL (1.8-7.7) Lymphocytes # (Auto) 1.8x10^3/uL (1.0-4.8) Monocytes # (Auto) 0.8x10^3/uL (0.0-1.1) Eosinophils # (Auto) 0.6x10^3/uL (0.0-0.7) Basophils # (Auto) 0.1x10^3/uL (0.0-0.2) Sodium Level 138mmol/L (136-145) Potassium Level 4.1mmol/L (3.5-5.1) Chloride Level 101mmol/L (98-107) Carbon Dioxide Level 27mmol/L (21-32) Anion Gap 10 (6-14) Blood Urea Nitrogen 41mg/dL (7-20) Creatinine 1.8mg/dL (0.6-1.0) Estimated GFR (Cockcroft-Gault) 26.7 BUN/Creatinine Ratio 23 (6-20) Glucose Level 97mg/dL (70-99) Calcium Level 9.4mg/dL (8.5-10.1) Total Bilirubin 0.6mg/dL (0.2-1.0) Aspartate Amino Transf (AST/SGOT) 17U/L (15-37) Alanine Aminotransferase (ALT/SGPT) 9U/L (14-59) Alkaline Phosphatase 72U/L (46-116) Total Protein 6.8g/dL (6.4-8.2) Albumin 3.1g/dL (3.4-5.0) Albumin/Globulin Ratio 0.8 (1.0-1.7) Assessment and Plan Assessmemt and Plan Problems Medical Problems: (1) CKD (chronic kidney disease) Status: Acute (2) Compression fx, thoracic spine Status: Acute (3) Diastolic heart failure Status: Acute (4) Hypoxia Status: Acute (5) Non-STEMI (non-ST elevated myocardial infarction) Status: Acute (6) Severe aortic stenosis Status: Acute (7) Subdural hemorrhage following injury Status: Acute (8) Urinary tract infection Status: Acute Problems: Comment Review of Relevant I have reviewed the following items issa (where applicable) has been applied. Labs Laboratory Tests Test 12/01/16 12:58 12/01/16 13:55 12/01/16 16:45 12/01/16 21:20 White Blood Count 9.6x10^3/uL (4.0-11.0) Red Blood Count 4.19x10^6/uL (3.50-5.40) Hemoglobin 13.2g/dL (12.0-15.5) Hematocrit 38.8% (36.0-47.0) Mean Corpuscular Volume 93fL (79-100) Mean Corpuscular Hemoglobin 32pg (25-35) Mean Corpuscular Hemoglobin Concent 34g/dL (31-37) Red Cell Distribution Width 14.8% (11.5-14.5) Platelet Count 256x10^3/uL (140-400) Neutrophils (%) (Auto) 75% (31-73) Lymphocytes (%) (Auto) 14% (24-48) Monocytes (%) (Auto) 7% (0-9) Eosinophils (%) (Auto) 3% (0-3) Basophils (%) (Auto) 1% (0-3) Neutrophils # (Auto) 7.2x10^3uL (1.8-7.7) Lymphocytes # (Auto) 1.4x10^3/uL (1.0-4.8) Monocytes # (Auto) 0.7x10^3/uL (0.0-1.1) Eosinophils # (Auto) 0.3x10^3/uL (0.0-0.7) Basophils # (Auto) 0.1x10^3/uL (0.0-0.2) Prothrombin Time 13.3SEC (11.7-14.0) Prothromb Time International Ratio 1.1 (0.8-1.1) Activated Partial Thromboplast Time 30SEC (24-38) Sodium Level 136mmol/L (136-145) Potassium Level 4.5mmol/L (3.5-5.1) Chloride Level 101mmol/L (98-107) Carbon Dioxide Level 23mmol/L (21-32) Anion Gap 12 (6-14) Blood Urea Nitrogen 47mg/dL (7-20) Creatinine 2.0mg/dL (0.6-1.0) Estimated GFR (Cockcroft-Gault) 23.7 Glucose Level 117mg/dL (70-99) Calcium Level 9.8mg/dL (8.5-10.1) Total Bilirubin 0.7mg/dL (0.2-1.0) Direct Bilirubin 0.2mg/dL (0.0-0.2) Aspartate Amino Transf (AST/SGOT) 19U/L (15-37) Alanine Aminotransferase (ALT/SGPT) 12U/L (14-59) Alkaline Phosphatase 99U/L (46-116) Troponin I Quantitative 0.237ng/mL (0.000-0.055) 0.314ng/mL (0.000-0.055) Total Protein 8.0g/dL (6.4-8.2) Albumin 3.8g/dL (3.4-5.0) Lipase 200U/L (73-393) Urine Collection Type Unknown Urine Color Yellow Urine Clarity Clear Urine pH 5.5 Urine Specific [place] <=1.005 Urine Protein Negativemg/dL (NEG-TRACE) Urine Glucose (UA) Negativemg/dL (NEG) Urine Ketones (Stick) Negativemg/dL (NEG) Urine Blood Negative (NEG) Urine Nitrite Negative (NEG) Urine Bilirubin Negative (NEG) Urine Urobilinogen Dipstick 0.2mg/dL (0.2 mg/dL) Urine Leukocyte Esterase Large (NEG) Urine RBC Rare/HPF (0-2) Urine WBC >40/HPF (0-4) Urine Squamous Epithelial Cells Mod/LPF Urine Bacteria Moderate/HPF (0-FEW) Urine Hyaline Casts Occasional/HPF Urine Mucus Slight/LPF Nasal Screen MRSA (PCR) Negative (Negative) Test 12/02/16 03:30 12/03/16 05:00 White Blood Count 7.3x10^3/uL (4.0-11.0) 7.5x10^3/uL (4.0-11.0) Red Blood Count 3.58x10^6/uL (3.50-5.40) 3.48x10^6/uL (3.50-5.40) Hemoglobin 11.4g/dL (12.0-15.5) 10.7g/dL (12.0-15.5) Hematocrit 33.6% (36.0-47.0) 32.8% (36.0-47.0) Mean Corpuscular Volume 94fL (79-100) 94fL (79-100) Mean Corpuscular Hemoglobin 32pg (25-35) 31pg (25-35) Mean Corpuscular Hemoglobin Concent 34g/dL (31-37) 33g/dL (31-37) Red Cell Distribution Width 14.6% (11.5-14.5) 14.9% (11.5-14.5) Platelet Count 212x10^3/uL (140-400) 210x10^3/uL (140-400) Neutrophils (%) (Auto) 63% (31-73) 56% (31-73) Lymphocytes (%) (Auto) 21% (24-48) 25% (24-48) Monocytes (%) (Auto) 10% (0-9) 10% (0-9) Eosinophils (%) (Auto) 6% (0-3) 8% (0-3) Basophils (%) (Auto) 1% (0-3) 1% (0-3) Neutrophils # (Auto) 4.6x10^3uL (1.8-7.7) 4.2x10^3uL (1.8-7.7) Lymphocytes # (Auto) 1.5x10^3/uL (1.0-4.8) 1.8x10^3/uL (1.0-4.8) Monocytes # (Auto) 0.7x10^3/uL (0.0-1.1) 0.8x10^3/uL (0.0-1.1) Eosinophils # (Auto) 0.4x10^3/uL (0.0-0.7) 0.6x10^3/uL (0.0-0.7) Basophils # (Auto) 0.1x10^3/uL (0.0-0.2) 0.1x10^3/uL (0.0-0.2) Sodium Level 139mmol/L (136-145) 138mmol/L (136-145) Potassium Level 4.3mmol/L (3.5-5.1) 4.1mmol/L (3.5-5.1) Chloride Level 102mmol/L (98-107) 101mmol/L (98-107) Carbon Dioxide Level 26mmol/L (21-32) 27mmol/L (21-32) Anion Gap 11 (6-14) 10 (6-14) Blood Urea Nitrogen 45mg/dL (7-20) 41mg/dL (7-20) Creatinine 1.8mg/dL (0.6-1.0) 1.8mg/dL (0.6-1.0) Estimated GFR (Cockcroft-Gault) 26.7 26.7 Glucose Level 93mg/dL (70-99) 97mg/dL (70-99) Calcium Level 9.5mg/dL (8.5-10.1) 9.4mg/dL (8.5-10.1) Troponin I Quantitative 0.327ng/mL (0.000-0.055) ZD-Iix-Z-Type Natriuretic Peptide 80551jw/mL (0-449) BUN/Creatinine Ratio 23 (6-20) Total Bilirubin 0.6mg/dL (0.2-1.0) Aspartate Amino Transf (AST/SGOT) 17U/L (15-37) Alanine Aminotransferase (ALT/SGPT) 9U/L (14-59) Alkaline Phosphatase 72U/L (46-116) Total Protein 6.8g/dL (6.4-8.2) Albumin 3.1g/dL (3.4-5.0) Albumin/Globulin Ratio 0.8 (1.0-1.7) Laboratory Tests Test 12/03/16 05:00 White Blood Count 7.5x10^3/uL (4.0-11.0) Red Blood Count 3.48x10^6/uL (3.50-5.40) Hemoglobin 10.7g/dL (12.0-15.5) Hematocrit 32.8% (36.0-47.0) Mean Corpuscular Volume 94fL (79-100) Mean Corpuscular Hemoglobin 31pg (25-35) Mean Corpuscular Hemoglobin Concent 33g/dL (31-37) Red Cell Distribution Width 14.9% (11.5-14.5) Platelet Count 210x10^3/uL (140-400) Neutrophils (%) (Auto) 56% (31-73) Lymphocytes (%) (Auto) 25% (24-48) Monocytes (%) (Auto) 10% (0-9) Eosinophils (%) (Auto) 8% (0-3) Basophils (%) (Auto) 1% (0-3) Neutrophils # (Auto) 4.2x10^3uL (1.8-7.7) Lymphocytes # (Auto) 1.8x10^3/uL (1.0-4.8) Monocytes # (Auto) 0.8x10^3/uL (0.0-1.1) Eosinophils # (Auto) 0.6x10^3/uL (0.0-0.7) Basophils # (Auto) 0.1x10^3/uL (0.0-0.2) Sodium Level 138mmol/L (136-145) Potassium Level 4.1mmol/L (3.5-5.1) Chloride Level 101mmol/L (98-107) Carbon Dioxide Level 27mmol/L (21-32) Anion Gap 10 (6-14) Blood Urea Nitrogen 41mg/dL (7-20) Creatinine 1.8mg/dL (0.6-1.0) Estimated GFR (Cockcroft-Gault) 26.7 BUN/Creatinine Ratio 23 (6-20) Glucose Level 97mg/dL (70-99) Calcium Level 9.4mg/dL (8.5-10.1) Total Bilirubin 0.6mg/dL (0.2-1.0) Aspartate Amino Transf (AST/SGOT) 17U/L (15-37) Alanine Aminotransferase (ALT/SGPT) 9U/L (14-59) Alkaline Phosphatase 72U/L (46-116) Total Protein 6.8g/dL (6.4-8.2) Albumin 3.1g/dL (3.4-5.0) Albumin/Globulin Ratio 0.8 (1.0-1.7) Medications Current Medications Hydromorphone HCl (Dilaudid) 0.5 mg PRN Q1HR PRN IV SEVERE PAIN Last administered on 12/01/16 14:15; Start 12/01/16 at 14:15 Ondansetron HCl 4 mg 4 mg 1X ONCE IV Last administered on 12/01/16 14:15; Start 12/01/16 at 14:15; Stop 12/01/16 at 14:25; Status DC Ceftriaxone Sodium (Rocephin 1gm Ivpb For Omni) 50 ml @ 100 mls/hr 1X ONCE IV Last administered on 12/01/16 15:42; Start 12/01/16 at 15:15; Stop 12/01/16 at 15:44; Status DC Aspirin 324 mg 324 mg 1X ONCE PO ; Start 12/01/16 at 15:15; Stop 12/01/16 at 15 :20; Status DC Sodium Chloride (Iv Sodium Chloride 0.9% 500ml Bag) 500 ml @ 500 mls/hr 1X ONCE IV Last administered on 12/01/16 15:44; Start 12/01/16 at 15:15; Stop 07/10 at 16:14; Status DC Ondansetron HCl (Zofran) 4 mg PRN Q8HRS PRN IV NAUSEA/VOMITING; Start 12/01/16 at 15:15; Stop 12/02/16 at 15:14; Status DC Morphine Sulfate 2 mg 2 mg PRN Q2HR PRN IV PAIN; Start 12/01/16 at 15:15; Stop 12/02/16 at 15:14; Status DC Ceftriaxone Sodium/Sodium Chloride (Rocephin/Iv Sodium Chloride 0.9% 50ml) 50 ml @ 100 mls/hr Q24H IV Last administered on 12/02/16 16:56; Start 12/02/16 at 16:00 Acetaminophen (Tylenol) 325 mg PRN Q4HRS PRN PO PAIN Last administered on 04:48; Start 12/01/16 at 15:45 Aspirin (Children'S Aspirin) 81 mg HS PO Last administered on 12/01/16 20:49; Start 12/01/16 at 21:00; Stop 12/02/16 at 19:13; Status DC Calcium Carbonate/ Glycine (Oscal) 500 mg QID PO Last administered on 09:09; Start 12/01/16 at 17:00 Levothyroxine Sodium (Synthroid) 88 mcg DAILY06 PO Last administered on 06:23; Start 12/02/16 at 06:00 Lidocaine (Lidoderm) 1 patch DAILY TP Last administered on 12/03/16 09:11; Start 12/02/16 at 09:00 Loperamide HCl (Imodium) 2 mg PRN Q4HRS PRN PO DIARRHEA; Start 12/01/16 at 15: 45 Metoprolol Succinate (Toprol Xl) 100 mg DAILY07 PO ; Start 12/01/16 at 16:00; Stop 12/02/16 at 05:34; Status DC Clonazepam (Klonopin) 0.25 mg [id number] PO Last administered on 12/03/16 06:00; Start 12/01/16 at 16:00 Pantoprazole Sodium (Protonix) 40 mg DAILY16 PO Last administered on 12/02/16 16:56; Start 12/01/16 at 16:00 Furosemide (Lasix) 20 mg 1X ONCE IVP Last administered on 12/01/16 17:57; Start 12/01/16 at 17:00; Stop 12/01/16 at 17:01; Status DC Amlodipine Besylate (Norvasc) 5 mg DAILY PO Last administered on 12/03/16 09: 10; Start 12/01/16 at 18:45 Sennosides (Senna) 8.6 mg PRN DAILY PRN PO CONSTIPATION; Start 12/01/16 at 18: 15 Diphenhydramine HCl (Benadryl) 25 mg PRN QHS PRN PO INSOMNIA Last administered on 12/02/16 20:37; Start 12/01/16 at 20:45 Metoprolol Succinate (Toprol Xl) 100 mg DAILY PO Last administered on 09:10; Start 12/02/16 at 09:00 Non-Formulary Medication 1 ea WeSa@09 TP ; Start 12/02/16 at 14:00 Active Scripts Active Reported Senna (Sennosides) 8.6 Mg Tablet 8.6 Mg PO PRN DAILY PRN Norvasc (Amlodipine Besylate) 5 Mg Tablet 1 Tab PO DAILY Acetaminophen-Diphenhyd 500-25 (Acetaminophen/Diphenhydramine) 1 Each Tablet 1- 2 Each PO HS Loperamide (Loperamide Hcl) 2 Mg Capsule 2 Mg PO Q4HRS PRN Calcium Carbonate 500 Mg Tablet 500 Mg PO QID Aspirin 81 Mg Tab.chew 1 Tab PO HS Prilosec Otc (Omeprazole Magnesium) 20 Mg Tablet.dr 1 Tab PO DAILY16 Micardis (Telmisartan) 80 Mg Tablet 1 Tab PO DAILY08 Lidoderm (Lidocaine) 700 Mg Adh..patch 1 Patch TP DAILY Metoprolol Succinate ( Xl ) (Metoprolol Succinate) 100 Mg Tab.er.24h 1 Tab PO DAILY07 Clonazepam 0.25 Mg Tab.rapdis 0.25 Mg PO [id number] Synthroid (Levothyroxine Sodium) 88 Mcg Tablet 1 Tab PO DAILY06 Furosemide 20 Mg Tablet 1 Tab PO DAILYWBKFT Tylenol (Acetaminophen) 325 Mg Tablet 1-2 Tab PO Q4-6HRS PRN Acetaminophen 500 Mg Tablet 1-2 Supp.rect RC Q4-6HRS PRN Acetaminophen 500 Mg Tablet 1-2 Tab PO Q4-6HRS PRN Vitals/I & O Vital Sign - Last 24 Hours 12/02/16 12/02/16 12/02/16 12/02/16 12:00 15:00 19:15 19:48 Temp 98.6 97.7 98.4 98.6 97.7 98.4 Pulse 72 64 68 Resp 20 20 18 B/P 103/45 104/57 108/34 Pulse Ox 92 93 94 O2 Delivery Room Air Room Air Room Air Nasal Cannula O2 Flow Rate 2.0 12/02/16 12/03/16 12/03/16 12/03/16 23:00 03:00 07:00 07:24 Temp 97.6 97.4 97.8 97.6 97.4 97.8 Pulse 69 60 59 Resp 20 16 18 B/P 106/49 116/54 142/63 Pulse Ox 91 98 94 O2 Delivery Room Air Room Air Room Air Room Air 12/03/16 12/03/16 09:10 09:10 Pulse 66 67 B/P 142/63 142/63 Intake and Output 12/02/16 12/02/16 12/03/16 15:00 23:00 07:00 Intake Total 1550 ml 150 ml Output Total 1150 ml Balance 400 ml 150 ml HARRY FUCHS MD Dec 03, 2016 11:54
--- NOTE | 2016-12-03 13:42 | PDOC ---
PULMONARY PROGRESS NOTES Subjective HYPOXIA RESOLVED WITH DIURESIS Vitals Vital Signs Date Time Temp Pulse Resp B/P Pulse Ox O2 Delivery O2 Flow Rate FiO2 12/03/16 11:00 97.6 63 16 103/46 97 Room Air 97.6 12/02/16 19:48 2.0 General: Alert, No acute distress Lungs: Clear Cardiovascular: S1 Abdomen: Soft Neuro Exam: Alert Extremities: Other (1+edema) Labs Laboratory Tests Test 12/01/16 13:55 12/01/16 16:45 12/01/16 21:20 12/02/16 03:30 Urine Collection Type Unknown Urine Color Yellow Urine Clarity Clear Urine pH 5.5 Urine Specific [place] <=1.005 Urine Protein Negativemg/dL (NEG-TRACE) Urine Glucose (UA) Negativemg/dL (NEG) Urine Ketones (Stick) Negativemg/dL (NEG) Urine Blood Negative (NEG) Urine Nitrite Negative (NEG) Urine Bilirubin Negative (NEG) Urine Urobilinogen Dipstick 0.2mg/dL (0.2 mg/dL) Urine Leukocyte Esterase Large (NEG) Urine RBC Rare/HPF (0-2) Urine WBC >40/HPF (0-4) Urine Squamous Epithelial Cells Mod/LPF Urine Bacteria Moderate/HPF (0-FEW) Urine Hyaline Casts Occasional/HPF Urine Mucus Slight/LPF Nasal Screen MRSA (PCR) Negative (Negative) Troponin I Quantitative 0.314ng/mL (0.000-0.055) 0.327ng/mL (0.000-0.055) White Blood Count 7.3x10^3/uL (4.0-11.0) Red Blood Count 3.58x10^6/uL (3.50-5.40) Hemoglobin 11.4g/dL (12.0-15.5) Hematocrit 33.6% (36.0-47.0) Mean Corpuscular Volume 94fL (79-100) Mean Corpuscular Hemoglobin 32pg (25-35) Mean Corpuscular Hemoglobin Concent 34g/dL (31-37) Red Cell Distribution Width 14.6% (11.5-14.5) Platelet Count 212x10^3/uL (140-400) Neutrophils (%) (Auto) 63% (31-73) Lymphocytes (%) (Auto) 21% (24-48) Monocytes (%) (Auto) 10% (0-9) Eosinophils (%) (Auto) 6% (0-3) Basophils (%) (Auto) 1% (0-3) Neutrophils # (Auto) 4.6x10^3uL (1.8-7.7) Lymphocytes # (Auto) 1.5x10^3/uL (1.0-4.8) Monocytes # (Auto) 0.7x10^3/uL (0.0-1.1) Eosinophils # (Auto) 0.4x10^3/uL (0.0-0.7) Basophils # (Auto) 0.1x10^3/uL (0.0-0.2) Sodium Level 139mmol/L (136-145) Potassium Level 4.3mmol/L (3.5-5.1) Chloride Level 102mmol/L (98-107) Carbon Dioxide Level 26mmol/L (21-32) Anion Gap 11 (6-14) Blood Urea Nitrogen 45mg/dL (7-20) Creatinine 1.8mg/dL (0.6-1.0) Estimated GFR (Cockcroft-Gault) 26.7 Glucose Level 93mg/dL (70-99) Calcium Level 9.5mg/dL (8.5-10.1) IJ-Jrg-X-Type Natriuretic Peptide 07636rw/mL (0-449) Test 12/03/16 05:00 White Blood Count 7.5x10^3/uL (4.0-11.0) Red Blood Count 3.48x10^6/uL (3.50-5.40) Hemoglobin 10.7g/dL (12.0-15.5) Hematocrit 32.8% (36.0-47.0) Mean Corpuscular Volume 94fL (79-100) Mean Corpuscular Hemoglobin 31pg (25-35) Mean Corpuscular Hemoglobin Concent 33g/dL (31-37) Red Cell Distribution Width 14.9% (11.5-14.5) Platelet Count 210x10^3/uL (140-400) Neutrophils (%) (Auto) 56% (31-73) Lymphocytes (%) (Auto) 25% (24-48) Monocytes (%) (Auto) 10% (0-9) Eosinophils (%) (Auto) 8% (0-3) Basophils (%) (Auto) 1% (0-3) Neutrophils # (Auto) 4.2x10^3uL (1.8-7.7) Lymphocytes # (Auto) 1.8x10^3/uL (1.0-4.8) Monocytes # (Auto) 0.8x10^3/uL (0.0-1.1) Eosinophils # (Auto) 0.6x10^3/uL (0.0-0.7) Basophils # (Auto) 0.1x10^3/uL (0.0-0.2) Sodium Level 138mmol/L (136-145) Potassium Level 4.1mmol/L (3.5-5.1) Chloride Level 101mmol/L (98-107) Carbon Dioxide Level 27mmol/L (21-32) Anion Gap 10 (6-14) Blood Urea Nitrogen 41mg/dL (7-20) Creatinine 1.8mg/dL (0.6-1.0) Estimated GFR (Cockcroft-Gault) 26.7 BUN/Creatinine Ratio 23 (6-20) Glucose Level 97mg/dL (70-99) Calcium Level 9.4mg/dL (8.5-10.1) Total Bilirubin 0.6mg/dL (0.2-1.0) Aspartate Amino Transf (AST/SGOT) 17U/L (15-37) Alanine Aminotransferase (ALT/SGPT) 9U/L (14-59) Alkaline Phosphatase 72U/L (46-116) Total Protein 6.8g/dL (6.4-8.2) Albumin 3.1g/dL (3.4-5.0) Albumin/Globulin Ratio 0.8 (1.0-1.7) Laboratory Tests Test 12/03/16 05:00 White Blood Count 7.5x10^3/uL (4.0-11.0) Red Blood Count 3.48x10^6/uL (3.50-5.40) Hemoglobin 10.7g/dL (12.0-15.5) Hematocrit 32.8% (36.0-47.0) Mean Corpuscular Volume 94fL (79-100) Mean Corpuscular Hemoglobin 31pg (25-35) Mean Corpuscular Hemoglobin Concent 33g/dL (31-37) Red Cell Distribution Width 14.9% (11.5-14.5) Platelet Count 210x10^3/uL (140-400) Neutrophils (%) (Auto) 56% (31-73) Lymphocytes (%) (Auto) 25% (24-48) Monocytes (%) (Auto) 10% (0-9) Eosinophils (%) (Auto) 8% (0-3) Basophils (%) (Auto) 1% (0-3) Neutrophils # (Auto) 4.2x10^3uL (1.8-7.7) Lymphocytes # (Auto) 1.8x10^3/uL (1.0-4.8) Monocytes # (Auto) 0.8x10^3/uL (0.0-1.1) Eosinophils # (Auto) 0.6x10^3/uL (0.0-0.7) Basophils # (Auto) 0.1x10^3/uL (0.0-0.2) Sodium Level 138mmol/L (136-145) Potassium Level 4.1mmol/L (3.5-5.1) Chloride Level 101mmol/L (98-107) Carbon Dioxide Level 27mmol/L (21-32) Anion Gap 10 (6-14) Blood Urea Nitrogen 41mg/dL (7-20) Creatinine 1.8mg/dL (0.6-1.0) Estimated GFR (Cockcroft-Gault) 26.7 BUN/Creatinine Ratio 23 (6-20) Glucose Level 97mg/dL (70-99) Calcium Level 9.4mg/dL (8.5-10.1) Total Bilirubin 0.6mg/dL (0.2-1.0) Aspartate Amino Transf (AST/SGOT) 17U/L (15-37) Alanine Aminotransferase (ALT/SGPT) 9U/L (14-59) Alkaline Phosphatase 72U/L (46-116) Total Protein 6.8g/dL (6.4-8.2) Albumin 3.1g/dL (3.4-5.0) Albumin/Globulin Ratio 0.8 (1.0-1.7) Medications Active Scripts Medications Dose Route/Sig Days Date Category Senna (Sennosides) 8.6 Mg Tablet 8.6 Mg PO PRN DAILY PRN 12/01/16 Reported Norvasc (Amlodipine Besylate) 5 Mg Tablet 1 Tab PO DAILY 12/01/16 Reported Acetaminophen-Diphenhyd 500-25 (Acetaminophen/Diphenhydramine) 1 Each Tablet 1-2 Each PO HS 10/08/16 Reported Loperamide (Loperamide Hcl) 2 Mg Capsule 2 Mg PO Q4HRS PRN 10/08/16 Reported Calcium Carbonate 500 Mg Tablet 500 Mg PO QID 10/08/16 Reported Aspirin 81 Mg Tab.chew 1 Tab PO HS 10/08/16 Reported Prilosec Otc (Omeprazole Magnesium) 20 Mg Tablet.dr 1 Tab PO DAILY16 10/08/16 Reported Micardis (Telmisartan) 80 Mg Tablet 1 Tab PO DAILY08 10/08/16 Reported Lidoderm (Lidocaine) 700 Mg Adh..patch 1 Patch TP DAILY 10/08/16 Reported Metoprolol Succinate ( Xl ) (Metoprolol Succinate) 100 Mg Tab.er.24h 1 Tab PO DAILY07 10/08/16 Reported Clonazepam 0.25 Mg Tab.rapdis 0.25 Mg PO [id number] 10/08/16 Reported Synthroid (Levothyroxine Sodium) 88 Mcg Tablet 1 Tab PO DAILY06 10/08/16 Reported Furosemide 20 Mg Tablet 1 Tab PO [id number] 10/08/16 Reported Tylenol (Acetaminophen) 325 Mg Tablet 1-2 Tab PO Q4-6HRS PRN 10/08/16 Reported Acetaminophen 500 Mg Tablet 1-2 Supp.rect RC Q4-6HRS PRN 10/08/16 Reported Acetaminophen 500 Mg Tablet 1-2 Tab PO Q4-6HRS PRN 10/08/16 Reported Impression . 1. Status post mechanical fall after a syncopal episode. 2. Acute hypoxic respiratory failure, most likely secondary to mild congestive heart failure. She has interstitial markings been prominent and some mild basilar effusion along with cardiomegaly. We will obtain an echocardiogram. 3. No significant history of tobacco use. Plan . 1. ProBNP.26k. 2. Mild prn diuresis. monitor renal function. 3. Obtain echocardiogram. 4. Follow Renal recommendation. 5. Follow Cardiology recommendation regarding any workup or syncope. 6. stable pulmonary tate for dc home AMBAR BARRAGAN MD Dec 03, 2016 13:42
[2016-12-03 15:00] VITALS: BP 112/47
--- NOTE | 2016-12-03 16:37 | PDOC ---
Provider Note Provider Note RENAL F/U : RHONA S : Doing OK No new c/o reported. No active CP. O : VSS Afebrile. Alert. Neck : Supple Lungs : Non labored. Decreased bases. CVS : RRR Abd : Benign appearance. Ext : No CCE No major edema. Neuro : Grossly intact. Labs reviewed. ARF/ATN CKD stage III/IV from HTN HTN with NEPHROPATHY DYSPNEA. FALL with CRNIAL BLEED. Doing better Cr stable. Follow I/Os Supportive care. Mickey Melgoza M.D. MICKEY MELGOZA MD Dec 03, 2016 16:37
[2016-12-03] MEDS: CEFTRIAXONE SODIUM 1 GM in IV NORMAL SALINE 50ML 50 ML IV SCH (16:54)
[2016-12-03] MEDS: PANTOPRAZOLE 40 MG TABLET. PO SCH (16:54)
[2016-12-03 19:41] VITALS: BP 117/55
[2016-12-03 22:56] VITALS: BP 119/56
[2016-12-04 02:45] VITALS: BP 115/51
--- NOTE | 2016-12-04 03:43 | CONS ---
DATE OF CONSULTATION: REASON FOR CONSULTATION: Chronic kidney disease. HISTORY OF PRESENT ILLNESS: The patient is an 86-year-old lady, hospitalized because of hypoxia and not feeling well. Has dizziness and lightheadedness at times. No clear chest pains. She had a fall without any preceding chest pain or diaphoresis. She suffered some head injury with bleeding from the scalp. Superficial abrasions. No loss of consciousness, no seizures. She is currently on home oxygen. Concerns of coronary artery disease. Need for angiogram or further workup, and my consultation was requested for the same. She has had a history of chronic kidney disease. A followup with Dr. Lisbet Mendoza in our practice about 3-4 years ago was told that she has got her kidney function working at only about 30%. She is denying any blood in the urine. No other new active problems. PAST MEDICAL HISTORY: Significant for: 1. Hypertension. 2. 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 3. Congestive heart failure, details are unclear, possibly diastolic. 4. Hypothyroidism. 5. Morbid obesity. PAST SURGICAL HISTORY: No recent major or minor surgeries. ALLERGIES TO MEDICATIONS: None. REVIEW OF SYSTEMS: As above, otherwise negative on a 10-point scale. SOCIAL HISTORY: No reported tobacco, alcohol, or recreational drugs. 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 FAMILY HISTORY: Noncontributory due to age. PHYSICAL EXAMINATION: GENERAL: A middle-aged lady, somewhat anxious, but in no distress. VITAL SIGNS: Blood pressure is running 140s/60s. She is afebrile. HEENT: Pupils reactive. Tongue midline. NECK: Supple. LUNGS: Fairly good air entry. No rhonchi, rales, or wheezing. CARDIOVASCULAR: Normal S1, S2. No gallop, no rub. ABDOMEN: Soft, nontender, no rebound, and no masses. EXTREMITIES: Without edema. NEUROLOGIC: She is nonfocal. LABORATORY DATA: Reviewed. Sodium 138, potassium 4.1, chloride 101, bicarbonate 27, BUN 41, and creatinine 1.8. Urinalysis specific gravity less than 1.005, but no evidence of blood or protein. IMPRESSION: 1. Chronic kidney disease, likely stage III/IV from hypertensive nephrosclerosis. 2. Hypertension, appears to be reasonably well-controlled. 3. Fall with cranial bleed. 4. Dyspnea. PLAN: At this stage, we would continue to monitor labs. Probably, creatinine is at baseline. We would obtain records from office and previous hospitalizations if available. Gentle hydration, preferably p.o. Awaiting echo report. Obtain a kidney ultrasound. Discussed with patient at length. Discussed with family. Follows with Dr. Hodges for her cardiology needs or at [facility], and has been advised some valvular surgery given a leaky valve, again details are pending. Refer her back to Cardiology and we will discuss with Dr. Hodges. Thank you very much for the consultation. I appreciate the referral. We will follow. MICKEY MELGOZA MD DR: GREGG/roxy JOB#: [id number] / [id number]
[2016-12-04] MEDS: LEVOTHYROXINE 88 MCG TABLET PO SCH (06:14)
[2016-12-04] MEDS: CLONAZEPAM 0.5 MG TABLET PO SCH ×3 (06:14→22:11)
[2016-12-04 07:00] VITALS: BP 134/50
[2016-12-04] MEDS: LIDOCAINE (700MG/PATCH) PATCH. TP SCH (09:00)
[2016-12-04] MEDS: METOPROLOL SUCC 24HR ER 100 MG TAB.ER.24H. PO SCH (09:01)
[2016-12-04] MEDS: CALCIUM CARBONATE 500 MG TABLET PO SCH ×4 (09:01→20:38)
[2016-12-04] MEDS: AMLODIPINE BESYLATE 5 MG TABLET PO SCH (09:01)
--- NOTE | 2016-12-04 10:38 | CARD ---
APPROVED REPORT EXAM: Two-dimensional and M-mode echocardiogram with Doppler and color Doppler. Other Information Quality : Average Rhythm : NSR INDICATION Dizziness and Vertigo Dyspnea Elevated troponin level 2D DIMENSIONS RVDd3.0 (2.9-3.5cm)Left Atrium(2D)4.4 (1.6-4.0cm) IVSd1.4 (0.7-1.1cm)Aortic Root(2D)2.8 (2.0-3.7cm) LVDd3.9 (3.9-5.9cm)LVOT Diameter1.9 (1.8-2.4cm) PWd1.3 (0.7-1.1cm)LVDs2.7 (2.5-4.0cm) FS (%) 30.2 %SV37.2 ml LVEF(%)58.2 (>50%) Aortic Valve AoV Peak Praveen.596.1cm/sAoV JII332.8cm AO Peak GR.142.2mmHgLVOT VTI 21.79cm AO Mean GR.81mmHgAVA (VTI)0.37cm2 AI P 1/2 [id number] Mitral Valve MV E Rjzpkhxw996.2cm/sMV E Peak Gr.9mmHg MV DECEL [id number] A Hqxinwrf306.4cm/s MV E Mean Gr.4mmHgMV VPL67gu E/A Ratio1.1MV A [id number] MVA (PHT)4.23cm2 TDI Lateral E' P. V6.86cm/sMedial E' P. V3.35cm/s E/Lateral E'18.8E/Medial E'38.6 Tricuspid Valve TR P. Ngmltwla200zj/sRAP IMQSELIM4ftUt TR Peak Gr.96fpWkRMXA92hjQb LEFT VENTRICLE The left ventricle is normal size. There is mild concentric left ventricular hypertrophy. Left ventri marcela systolic function is normal. The Ejection Fraction is 55-60%. There is normal LV segmental wall m otion. The left ventricular diastolic function and filling is normal for age. RIGHT VENTRICLE The right ventricle is normal size. The right ventricular systolic function is normal. ATRIA The left atrium is borderline dilated. The right atrium size is normal. The interatrial septum is int act with no evidence for an atrial septal defect or patent foramen ovale as noted on 2-D or Doppler i maging. AORTIC VALVE The aortic valve is moderate to severely calcified and displays decreased opening. Doppler and Color Flow revealed moderate aortic regurgitation. Calculated aortic valve area is 0.37 cm2 with maximum pr essure gradient of 142 mmHg and mean pressure gradient of 81 mmHg. Doppler and color-flow analysis re vealed critical aortic stenosis. MITRAL VALVE Mitral annular calcification is mild to moderate. There is no mitral valve stenosis. Doppler and [place] r Flow revealed mild mitral regurgitation. TRICUSPID VALVE The tricuspid valve is normal in structure and function. Doppler and Color Flow revealed moderate tri cuspid regurgitation. There is moderate-severe pulmonary hypertension. The PA pressure was estimated at 70 mmHg. There is no tricuspid valve stenosis. PULMONIC VALVE The pulmonic valve is not well visualized. Doppler and Color Flow revealed trace pulmonic valvular re gurgitation. There is no pulmonic valvular stenosis. GREAT VESSELS The aortic root is normal in size. Pulmonary veins not well visualized. The IVC is normal in size and collapses >50% with inspiration. PERICARDIAL EFFUSION There is no evidence of significant pericardial effusion. Critical Notification Critical Value: No <Conclusion> Left ventricle systolic function is normal. The Ejection Fraction is 55-60%. There is normal LV segmental wall motion. Calculated aortic valve area is 0.37 cm2 with maximum pressure gradient of 142 mmHg and mean pressure gradient of 81 mmHg. Doppler and color-flow analysis revealed critical aortic stenosis. Doppler and Color Flow revealed moderate tricuspid regurgitation. There is moderate-severe pulmonary hypertension. The PA pressure was estimated at 70 mmHg.
--- NOTE | 2016-12-04 11:27 | PDOC ---
Renal-Progress Notes Subjective Notes Notes BETTER History of Present Illness Hx of present illness STABLE Vitals Vitals Vital Signs Date Time Temp Pulse Resp B/P Pulse Ox O2 Delivery O2 Flow Rate FiO2 12/04/16 09:01 70 134/50 12/04/16 08:00 Room Air 12/04/16 07:00 98.2 16 95 98.2 Weight Weight [ ] I.O. Intake and Output Intake and Output 12/04/16 07:00 Intake Total 450 ml Balance 450 ml Intake Oral 300 ml Other 150 ml # Voids 3 Micro Micro Microbiology 12/01/16 Urine Culture - Final, Complete 12/01/16 Urine Culture Result 1 (YUE) - Final, Complete Review of Systems Constitutional: yes: alert Ears/Nose/Throat: Yes: no symptom reported Eyes: Yes: no symptom reported Pulmonary: Yes no symptom reported Cardiovascular: Yes no symptom reported Musculoskeletal: Yes: no symptom reported Endocrine: Yes: no symptom reported Physical Exam General Appearance: no apparent distress Skin: warm Respiratory: decreased breath sounds Heart: S1S2, RRR Abdomen: soft, bowel sounds present Extremities: pulses present Neurology: alert Assessment Assessment IMP CHF-IMPROVED CKD STAGE 3 STABLE WITH CR OF 1.8 PLAN SCHEDULED PO PRIYANKA TAM MD Dec 04, 2016 11:27
[2016-12-04 11:32] VITALS: BP 125/49
--- NOTE | 2016-12-04 11:36 | PDOC ---
ROC LOU FACSIMILE OPERATOR 12/04/16 1136: CARDIO Progress Notes Date and Time Date of Service 12/04/2016 Time of Evaluation 1136 Subjective Subjective: No Chest Pain, No shortness of breath, No Palpitations, Other ( dizziness with movement) Vitals Vitals Vital Signs Date Time Temp Pulse Resp B/P Pulse Ox O2 Delivery O2 Flow Rate FiO2 12/04/16 11:32 97.7 64 18 125/49 97 Room Air 97.7 Weight Weight [ ] Input and Output Intake and Output Intake and Output 12/04/16 07:00 Intake Total 450 ml Balance 450 ml Intake Oral 300 ml Other 150 ml # Voids 3 Microbiology Micro Microbiology 12/01/16 Urine Culture - Final, Complete 12/01/16 Urine Culture Result 1 (YUE) - Final, Complete Review of Systems Constitutional: yes: alert Ears/Nose/Throat: Yes: no symptom reported Eyes: Yes: no symptom reported Pulmonary: Yes no symptom reported Cardiovascular: Yes no symptom reported Musculoskeletal: Yes: no symptom reported Endocrine: Yes: no symptom reported Physical Exam HEENT: Neck Supple W Full Motion Chest: Symmetric LUNGS: Clear to Auscultation Heart: S1S2, no gallops, murmurs (4/6 aortic ), other (tele: SR) Abdomen: Soft N/T Extremities: No Edema Neurology: alert, oriented, follow commands Assessment Assessment 1) Severe symptomatic 2) Near syncope 3) Diastolic heart failure 4) History of subdural hematoma now resolved 5) Elevated troponin most likely due to #1 Plan Plan 1. echo for further evaluation of 2. obtain records from usual ladle builder, Dr. Joe Hodges @ [facility] 3. Na and fluid restriction (2 gm and 2000 cc) OCTAVIA WRAY MD 12/04/16 1804: CARDIO Progress Notes Plan Plan Patient seen and examined. Agree with above nurse practitioner note. No acute events overnight. Exam consistent with critical aortic stenosis. Echocardiogram reviewed and notable for critical aortic stenosis. Discussed the patient's case with her primary ladle builder at [facility]. Monitor overnight and if stable may return to the mother house with extubated follow-up with primary ladle builder and consideration of TAVR through [facility]. Had a long discussion with the patient and she is amenable to considering transcatheter aortic valve replacement. ROC LOU APRN Dec 04, 2016 11:36 OCTAVIA WRAY MD Dec 04, 2016 18:04
--- NOTE | 2016-12-04 12:23 | PDOC ---
PROGRESS NOTES Chief Complaint Chief Complaint UTI s/p fall ASSESSMENT AND PLAN: 1. UTI: mixed urogen azul. on ceftriax, can stop. 2. Near syncope: recurrent, 2/2 3. : severe, symptomatic. TAVR recommended in past, pt reluctant in the past, but now agreeable to minimally invasive surgery at , to be arranged by Dr Monroy 4. CHF exacerbation: diastolic. appreciate cardiology service input. essentially at baseline 5. Troponin leak: chronic 2/2 . 6. 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 Anemia: sl drop in H/H prob dilutional. chronic anemia due to CKD, chronic inflammation (cardiac). monitor 8. hx SDH, traumatic. no acute issues. hold anticoag with frequent falls 9. Dispo: home when cleared by subspecialists Vitals Vitals Vital Signs Date Time Temp Pulse Resp B/P Pulse Ox O2 Delivery O2 Flow Rate FiO2 12/04/16 11:32 97.7 64 18 125/49 97 Room Air 97.7 Physical Exam General: Alert, Oriented X3, Cooperative, No acute distress Heart: Regular rate, No murmurs, Other (4/6 murmur) Lungs: Clear Abdomen: Normal bowel sounds, Soft Extremities: No edema Skin: No rashes Review of Systems Review of Systems gets dizzy easily. + constipation with labored BM this AM Comment Review of Relevant ELISA MERRILL MD Dec 04, 2016 12:23
[2016-12-04] MEDS: FUROSEMIDE 40 MG TABLET PO SCH (12:30)
[2016-12-04 15:00] VITALS: BP 118/47
--- NOTE | 2016-12-04 15:38 | PDOC ---
PULMONARY PROGRESS NOTES Subjective HYPOXIA RESOLVED WITH DIURESIS Vitals Vital Signs Date Time Temp Pulse Resp B/P Pulse Ox O2 Delivery O2 Flow Rate FiO2 12/04/16 11:32 97.7 64 18 125/49 97 Room Air 97.7 General: Alert, No acute distress Lungs: Clear Cardiovascular: S1 Abdomen: Soft Neuro Exam: Alert Extremities: Other (1+edema) Labs Laboratory Tests Test 12/03/16 05:00 White Blood Count 7.5x10^3/uL (4.0-11.0) Red Blood Count 3.48x10^6/uL (3.50-5.40) Hemoglobin 10.7g/dL (12.0-15.5) Hematocrit 32.8% (36.0-47.0) Mean Corpuscular Volume 94fL (79-100) Mean Corpuscular Hemoglobin 31pg (25-35) Mean Corpuscular Hemoglobin Concent 33g/dL (31-37) Red Cell Distribution Width 14.9% (11.5-14.5) Platelet Count 210x10^3/uL (140-400) Neutrophils (%) (Auto) 56% (31-73) Lymphocytes (%) (Auto) 25% (24-48) Monocytes (%) (Auto) 10% (0-9) Eosinophils (%) (Auto) 8% (0-3) Basophils (%) (Auto) 1% (0-3) Neutrophils # (Auto) 4.2x10^3uL (1.8-7.7) Lymphocytes # (Auto) 1.8x10^3/uL (1.0-4.8) Monocytes # (Auto) 0.8x10^3/uL (0.0-1.1) Eosinophils # (Auto) 0.6x10^3/uL (0.0-0.7) Basophils # (Auto) 0.1x10^3/uL (0.0-0.2) Sodium Level 138mmol/L (136-145) Potassium Level 4.1mmol/L (3.5-5.1) Chloride Level 101mmol/L (98-107) Carbon Dioxide Level 27mmol/L (21-32) Anion Gap 10 (6-14) Blood Urea Nitrogen 41mg/dL (7-20) Creatinine 1.8mg/dL (0.6-1.0) Estimated GFR (Cockcroft-Gault) 26.7 BUN/Creatinine Ratio 23 (6-20) Glucose Level 97mg/dL (70-99) Calcium Level 9.4mg/dL (8.5-10.1) Total Bilirubin 0.6mg/dL (0.2-1.0) Aspartate Amino Transf (AST/SGOT) 17U/L (15-37) Alanine Aminotransferase (ALT/SGPT) 9U/L (14-59) Alkaline Phosphatase 72U/L (46-116) Total Protein 6.8g/dL (6.4-8.2) Albumin 3.1g/dL (3.4-5.0) Albumin/Globulin Ratio 0.8 (1.0-1.7) Medications Active Scripts Medications Dose Route/Sig Days Date Category Senna (Sennosides) 8.6 Mg Tablet 8.6 Mg PO PRN DAILY PRN 12/01/16 Reported Norvasc (Amlodipine Besylate) 5 Mg Tablet 1 Tab PO DAILY 12/01/16 Reported Acetaminophen-Diphenhyd 500-25 (Acetaminophen/Diphenhydramine) 1 Each Tablet 1-2 Each PO HS 10/08/16 Reported Loperamide (Loperamide Hcl) 2 Mg Capsule 2 Mg PO Q4HRS PRN 10/08/16 Reported Calcium Carbonate 500 Mg Tablet 500 Mg PO QID 10/08/16 Reported Aspirin 81 Mg Tab.chew 1 Tab PO HS 10/08/16 Reported Prilosec Otc (Omeprazole Magnesium) 20 Mg Tablet.dr 1 Tab PO DAILY16 10/08/16 Reported Micardis (Telmisartan) 80 Mg Tablet 1 Tab PO DAILY08 10/08/16 Reported Lidoderm (Lidocaine) 700 Mg Adh..patch 1 Patch TP DAILY 10/08/16 Reported Metoprolol Succinate ( Xl ) (Metoprolol Succinate) 100 Mg Tab.er.24h 1 Tab PO DAILY07 10/08/16 Reported Clonazepam 0.25 Mg Tab.rapdis 0.25 Mg PO [id number] 10/08/16 Reported Synthroid (Levothyroxine Sodium) 88 Mcg Tablet 1 Tab PO DAILY06 10/08/16 Reported Furosemide 20 Mg Tablet 1 Tab PO [id number] 10/08/16 Reported Tylenol (Acetaminophen) 325 Mg Tablet 1-2 Tab PO Q4-6HRS PRN 10/08/16 Reported Acetaminophen 500 Mg Tablet 1-2 Supp.rect RC Q4-6HRS PRN 10/08/16 Reported Acetaminophen 500 Mg Tablet 1-2 Tab PO Q4-6HRS PRN 10/08/16 Reported Impression . 1. Status post mechanical fall after a syncopal episode. 2. Acute hypoxic respiratory failure, most likely secondary to mild congestive heart failure. 3. No significant history of tobacco use. 4. Severe Plan . pt respiratory status is compensated d/c when ok with cardiology MARKUS KNOWLES MD Dec 04, 2016 15:38
[2016-12-04] MEDS: CEFTRIAXONE SODIUM 1 GM in IV NORMAL SALINE 50ML 50 ML IV SCH (16:05)
[2016-12-04] MEDS: PANTOPRAZOLE 40 MG TABLET. PO SCH (16:06)
[2016-12-04 19:00] VITALS: BP_SYST 118; BP_SYST 126; BP_DIAS 47; BP_DIAS 58
[2016-12-04] MEDS: DIPHENHYDRAMINE HCL 25 MG CAPSULE PO PRN (20:40)
[2016-12-04] MEDS: ACETAMINOPHEN 325 MG TABLET. PO PRN (20:40)
[2016-12-04 23:22] VITALS: BP 147/65
[2016-12-05 03:30] VITALS: BP 135/63
[2016-12-05 05:10] LABS: CALCIUM 9.8 mg/dL (8.5-10.1); CREATININE 1.6 mg/dL (0.6-1.0); GFR 30.6; POTASSIUM 3.9 mmol/L (3.5-5.1)
[2016-12-05] MEDS: LEVOTHYROXINE 88 MCG TABLET PO SCH (05:42)
[2016-12-05] MEDS: CLONAZEPAM 0.5 MG TABLET PO SCH ×2 (05:42→15:20)
[2016-12-05 07:00] VITALS: BP 119/40
[2016-12-05] MEDS: FUROSEMIDE 40 MG TABLET PO SCH (08:29)
[2016-12-05] MEDS: CALCIUM CARBONATE 500 MG TABLET PO SCH ×2 (08:30→12:15)
[2016-12-05] MEDS: METOPROLOL SUCC 24HR ER 100 MG TAB.ER.24H. PO SCH (08:31)
[2016-12-05] MEDS: AMLODIPINE BESYLATE 5 MG TABLET PO SCH (08:31)
[2016-12-05] MEDS: LIDOCAINE (700MG/PATCH) PATCH. TP SCH (08:32)
--- NOTE | 2016-12-05 09:43 | PDOC ---
PULMONARY PROGRESS NOTES Subjective HYPOXIA RESOLVED WITH DIURESIS Vitals Vital Signs Date Time Temp Pulse Resp B/P Pulse Ox O2 Delivery O2 Flow Rate FiO2 12/05/16 08:31 67 119/40 12/05/16 08:00 Room Air 12/05/16 07:00 97.4 18 97 97.4 12/04/16 19:00 2.0 General: Alert, No acute distress Lungs: Clear Cardiovascular: S1 Abdomen: Soft Neuro Exam: Alert Extremities: Other (1+edema) Labs Laboratory Tests Test 12/05/16 03:52 Sodium Level 139mmol/L (136-145) Potassium Level 3.9mmol/L (3.5-5.1) Chloride Level 101mmol/L (98-107) Carbon Dioxide Level 28mmol/L (21-32) Anion Gap 10 (6-14) Blood Urea Nitrogen 38mg/dL (7-20) Creatinine 1.6mg/dL (0.6-1.0) Estimated GFR (Cockcroft-Gault) 30.6 Glucose Level 104mg/dL (70-99) Calcium Level 9.8mg/dL (8.5-10.1) Laboratory Tests Test 12/05/16 03:52 Sodium Level 139mmol/L (136-145) Potassium Level 3.9mmol/L (3.5-5.1) Chloride Level 101mmol/L (98-107) Carbon Dioxide Level 28mmol/L (21-32) Anion Gap 10 (6-14) Blood Urea Nitrogen 38mg/dL (7-20) Creatinine 1.6mg/dL (0.6-1.0) Estimated GFR (Cockcroft-Gault) 30.6 Glucose Level 104mg/dL (70-99) Calcium Level 9.8mg/dL (8.5-10.1) Medications Active Scripts Medications Dose Route/Sig Days Date Category Senna (Sennosides) 8.6 Mg Tablet 8.6 Mg PO PRN DAILY PRN 12/01/16 Reported Norvasc (Amlodipine Besylate) 5 Mg Tablet 1 Tab PO DAILY 12/01/16 Reported Acetaminophen-Diphenhyd 500-25 (Acetaminophen/Diphenhydramine) 1 Each Tablet 1-2 Each PO HS 10/08/16 Reported Loperamide (Loperamide Hcl) 2 Mg Capsule 2 Mg PO Q4HRS PRN 10/08/16 Reported Calcium Carbonate 500 Mg Tablet 500 Mg PO QID 10/08/16 Reported Aspirin 81 Mg Tab.chew 1 Tab PO HS 10/08/16 Reported Prilosec Otc (Omeprazole Magnesium) 20 Mg Tablet.dr 1 Tab PO DAILY16 10/08/16 Reported Micardis (Telmisartan) 80 Mg Tablet 1 Tab PO DAILY08 10/08/16 Reported Lidoderm (Lidocaine) 700 Mg Adh..patch 1 Patch TP DAILY 10/08/16 Reported Metoprolol Succinate ( Xl ) (Metoprolol Succinate) 100 Mg Tab.er.24h 1 Tab PO DAILY07 10/08/16 Reported Clonazepam 0.25 Mg Tab.rapdis 0.25 Mg PO [id number] 10/08/16 Reported Synthroid (Levothyroxine Sodium) 88 Mcg Tablet 1 Tab PO DAILY06 10/08/16 Reported Furosemide 20 Mg Tablet 1 Tab PO DAILYWBKFT 10/08/16 Reported Tylenol (Acetaminophen) 325 Mg Tablet 1-2 Tab PO Q4-6HRS PRN 10/08/16 Reported Acetaminophen 500 Mg Tablet 1-2 Supp.rect RC Q4-6HRS PRN 10/08/16 Reported Acetaminophen 500 Mg Tablet 1-2 Tab PO Q4-6HRS PRN 10/08/16 Reported Impression . 1. Status post mechanical fall after a syncopal episode. 2. Acute hypoxic respiratory failure, most likely secondary to mild congestive heart failure. 3. No significant history of tobacco use. 4. Severe Plan . pt respiratory status is compensated d/c when ok with cardiology MARKUS KNOWLES MD Dec 05, 2016 09:43
[2016-12-05 10:37] VITALS: BP 89/49
--- NOTE | 2016-12-05 11:16 | PDOC ---
Renal-Progress Notes Subjective Notes Notes NONE History of Present Illness Hx of present illness NO CHANGE Vitals Vitals Vital Signs Date Time Temp Pulse Resp B/P Pulse Ox O2 Delivery O2 Flow Rate FiO2 12/05/16 10:37 97.9 68 21 89/49 96 Room Air 97.9 12/04/16 19:00 2.0 Weight Weight [ ] I.O. Intake and Output Intake and Output 12/05/16 07:00 Intake Total 1920 ml Output Total 750 ml Balance 1170 ml Intake Oral 1920 ml Other 0 ml Output Urine Total 750 ml # Voids 5 # Bowel Movements 2 Labs Labs Laboratory Tests Test 12/05/16 03:52 Sodium Level 139mmol/L (136-145) Potassium Level 3.9mmol/L (3.5-5.1) Chloride Level 101mmol/L (98-107) Carbon Dioxide Level 28mmol/L (21-32) Anion Gap 10 (6-14) Blood Urea Nitrogen 38mg/dL (7-20) Creatinine 1.6mg/dL (0.6-1.0) Estimated GFR (Cockcroft-Gault) 30.6 Glucose Level 104mg/dL (70-99) Calcium Level 9.8mg/dL (8.5-10.1) Micro Micro Microbiology 12/01/16 Urine Culture - Final, Complete 12/01/16 Urine Culture Result 1 (YUE) - Final, Complete Review of Systems Constitutional: yes: alert Ears/Nose/Throat: Yes: no symptom reported Eyes: Yes: no symptom reported Pulmonary: Yes no symptom reported Cardiovascular: Yes no symptom reported Musculoskeletal: Yes: no symptom reported Endocrine: Yes: no symptom reported Physical Exam General Appearance: no apparent distress Skin: warm Respiratory: decreased breath sounds Heart: S1S2, RRR Abdomen: soft, bowel sounds present Extremities: pulses present Neurology: alert, oriented, follow commands Assessment Assessment IMP CHF-IMPROVED CKD STAGE 3 STABLE WITH CR OF 1.6 SEVERE PLAN SCHEDULED PO PRIYANKA TAM MD Dec 05, 2016 11:16
[2016-12-05] MEDS ORDERED: FURO40TA4 PO (13:33)
[2016-12-05 14:38] VITALS: BP 103/46
[2016-12-05] MEDS: PANTOPRAZOLE 40 MG TABLET. PO SCH (15:20)
--- NOTE | 2016-12-05 15:23 | PDOC ---
ROC LOU BIOLOGY TEACHER 12/05/16 1523: CARDIO Progress Notes Date and Time Date of Service 12/05/2016 Time of Evaluation 1200 Subjective Subjective: No Chest Pain, No shortness of breath, No Palpitations, Other ( dizziness with movement; pain around abrasion on top of head) Vitals Vitals Vital Signs Date Time Temp Pulse Resp B/P Pulse Ox O2 Delivery O2 Flow Rate FiO2 12/05/16 14:38 98.4 65 18 103/46 97 Room Air 98.4 12/04/16 19:00 2.0 Weight Weight [ ] Input and Output Intake and Output Intake and Output 12/05/16 07:00 Intake Total 1920 ml Output Total 750 ml Balance 1170 ml Intake Oral 1920 ml Other 0 ml Output Urine Total 750 ml # Voids 5 # Bowel Movements 2 Laboratory Labs Laboratory Tests Test 12/05/16 03:52 Sodium Level 139mmol/L (136-145) Potassium Level 3.9mmol/L (3.5-5.1) Chloride Level 101mmol/L (98-107) Carbon Dioxide Level 28mmol/L (21-32) Anion Gap 10 (6-14) Blood Urea Nitrogen 38mg/dL (7-20) Creatinine 1.6mg/dL (0.6-1.0) Estimated GFR (Cockcroft-Gault) 30.6 Glucose Level 104mg/dL (70-99) Calcium Level 9.8mg/dL (8.5-10.1) Microbiology Micro Microbiology 12/01/16 Urine Culture - Final, Complete 12/01/16 Urine Culture Result 1 (YUE) - Final, Complete Physical Exam HEENT: Neck Supple W Full Motion Chest: Symmetric LUNGS: Clear to Auscultation Heart: S1S2, no gallops, murmurs (4/6 aortic ), other (tele: SR) Abdomen: Soft N/T Extremities: No Edema Neurology: alert, oriented, follow commands Assessment Assessment 1) Severe symptomatic preserved LV function on echo critical with ARELI of 0.37 cm2; PG of 142 mmHg and MG of 81 mm Hg attending is project manager @ [facility] spoke with her usual is project manager @ [facility] ( Tracie) and he will see her on 12/19/2016 for further evaluation may discharge 2) Near syncope has been advised to call for assistance 3) Diastolic heart failure reasonably compensated now. OCTAVIA WRAY MD 12/05/16 1843: CARDIO Progress Notes Plan Plan Patient seen and examined. Agree with above nurse practitioner note. No acute events overnight. Patient denies any chest pain. Persistent severe systolic murmur on examination. Consistent with severe aortic stenosis Medications reviewed. She has expedited follow-up with her primary is project manager and will have repeat assessment for transcatheter aortic valve replacement. Okay to discharge from a cardiac perspective. ROC LOU APRN Dec 05, 2016 15:23 OCTAVIA WRAY MD Dec 05, 2016 18:43
--- NOTE | 2016-12-07 00:30 | DS ---
DATE OF DISCHARGE: 12/05/2016 CHIEF COMPLAINT: UTI, status post fall. HOSPITAL COURSE: The patient is an 86-year-old woman who was found after falling at home, with signs of UTI in the Emergency Room. She was, therefore, admitted and evaluated. UTI actually was not confirmed by culture and antibiotics were stopped. Her fall was most likely secondary to recurrent near syncope secondary to severe . She had been recommended to undergo valve replacement in the past and had been reluctant. The patient, however, is more amenable at this time after once again discussing this with Dr. Monroy. Other symptoms included mild CHF exacerbation, most likely secondary to . Aside from IV Lasix, no further interventions were undertaken and the patient was determined to be stable for discharge. PHYSICAL EXAMINATION: VITAL SIGNS: Show a blood pressure of 103/46, heart rate of 65, respiratory rate at 18. She is afebrile. GENERAL: This is a well-nourished 86-year-old woman, alert and oriented, no acute distress. LUNGS: Clear. HEART: Has regular rate and rhythm, 4/6 murmur appreciated. ABDOMEN: Has positive bowel sounds, soft and nontender. EXTREMITIES: Show no edema. DISCHARGE DISPOSITION: To home. DISCHARGE CONDITION: Improved. DISCHARGE MEDICATIONS: Please refer to MAR. DISCHARGE INSTRUCTIONS: The patient will follow up with Cardiology as well as Cardiothoracic Surgery for evaluation of valve replacement. ELISA MERRILL MD DR: SOY/roxy JOB#: [id number] / [id number] EMMANUEL
== END 2016-12-05 15:40 | DRG 682 ==
LOC: ER 12:26 → 1 WEST ICU 15:09 → 2 NORTH 12-02 13:40
PROVIDERS: ADMIT Internal Medicine; ATTEND Internal Medicine
DX: N17.0 Acute kidney failure with tubular necrosis (principal); I50.33 Acute on chronic diastolic (congestive) heart failure; J96.01 Acute respiratory failure with hypoxia; I13.0 Hypertensive heart and chronic kidney disease with heart failure and stage 1 through stage 4 chronic kidney disease, or unspecified chronic kidney disease; N39.0 Urinary tract infection, site not specified; N18.4 Chronic kidney disease, stage 4 (severe); W18.39XA Other fall on same level, initial encounter; S01.01XA Laceration without foreign body of scalp, initial encounter; D63.1 Anemia in chronic kidney disease; I35.0 Nonrheumatic aortic (valve) stenosis; E03.9 Hypothyroidism, unspecified; E66.01 Morbid (severe) obesity due to excess calories; F07.81 Postconcussional syndrome; H91.90 Unspecified hearing loss, unspecified ear; Z99.81 Dependence on supplemental oxygen; Z82.49 Family history of ischemic heart disease and other diseases of the circulatory system; Y99.8 Other external cause status; Y92.89 Other specified places as the place of occurrence of the external cause; Y93.89 Activity, other specified; Z90.49 Acquired absence of other specified parts of digestive tract; Z91.041 Radiographic dye allergy status; Z79.899 Other long term (current) drug therapy; Z68.24 Body mass index [BMI] 24.0-24.9, adult
CPT/HCPCS: 36415; 70450; 71010; 72125; 80048; 80053; 80076; 81001; 83690; 83880; 84484; 85027; 85610; 85730; 86850; 86900; 86901; 87086; 87641; 93005; 93306; 96365; 96375; J0690; J0696; J1170; J2405; J7040; Q0163; 97110; 97116; 97535; 99285-25

== ENCOUNTER 2017-01-15 11:03 | Inpatient (IN) | payer MEDICARE, OTHER ==
[~2017-01-15] VITALS: Ht 165.1 cm; Wt 69.4 kg
[~2017-01-15 11:03] MED LIST changes: +AMLO5TAB4 PO; +FURO40TA4 PO; +SENN8.6T3 PO
[2017-01-15 12:25] LABS: BILIRUBIN,URINE NEGATIVE (NEG); GLUCOSE,URINE NEGATIVE (NEG); NITRITE,URINE NEGATIVE (NEG); PROTEIN,URINE NEGATIVE (NEG-TRACE); UROBILINOGEN,URINE 0.2 mg/dL (0.2 mg/dL)
--- NOTE | 2017-01-15 12:27 | PHYS DOC ---
Past Medical History Past Medical History: Hypertension, Other Additional Past Medical Histor: ATRIAL VALVE PROLAPSE Past Surgical History: Appendectomy, Other Additional Past Surgical Histo: TWO BACK SGRYS Alcohol Use: None Drug Use: None Adult General Chief Complaint Chief Complaint: RECTAL BLEED [facility] HPI Very pleasant 86-year-old female who states she had an episode of bright red blood per rectum she noted just prior to arrival. Her nurse stated she was concerned about the amount of blood in stool and wanted her to be evaluated. She denies any dizziness or lightheadedness. Patient was saturating in the low 90s upon arrival and placed on 2 L nasal cannula. Upon my initial assessment, the patient is in no acute distress at this time. She states she's in the process of having her aortic valve repair and she has history of significant aortic stenosis but she does not claim any new shortness of air today. Not on any blood thinning medications. She denies any significant rectal pain or abdominal pain. She states she's had an episode of constipation earlier this week this has improved with medication. Review of Systems Review of Systems Constitutional: Denies fever or chills [] Eyes: Denies change in visual acuity, redness, or eye pain [] HENT: Denies nasal congestion or sore throat [] Respiratory: Denies cough or shortness of breath [] Cardiovascular: No additional information not addressed in HPI [] GI: Denies abdominal pain, nausea, vomiting, bloody stools or diarrhea [] : Denies dysuria or hematuria [] Musculoskeletal: Denies back pain or joint pain [] Integument: Denies rash or skin lesions [] Neurologic: Denies headache, focal weakness or sensory changes [] Endocrine: Denies polyuria or polydipsia [] Allergies Allergies Allergies Coded Allergies Type Severity Reaction Last Updated Verified Iodine and Iodide Containing Produc Allergy Intermediate 10/08/16 Yes Physical Exam Physical Exam Constitutional: Well developed, well nourished, no acute distress, non-toxic appearance. [] HENT: Normocephalic, atraumatic, bilateral external ears normal, oropharynx moist, no oral exudates, nose normal. [] Eyes: PERRLA, EOMI, conjunctiva normal, no discharge. [] Neck: Normal range of motion, no tenderness, supple, no stridor. [] Cardiovascular:Heart rate regular rhythm, no murmur [] Lungs & Thorax: Bilateral breath sounds clear to auscultation [] Abdomen: Bowel sounds normal, soft, no tenderness, no masses, no pulsatile masses. [] Rectal exam reveals hard stool but no hemorrhoids and no obvious blood Skin: Warm, dry, no erythema, no rash. [] Back: No tenderness, no CVA tenderness. [] Extremities: No tenderness, no cyanosis, no clubbing, ROM intact, no edema. [] Neurologic: Alert and oriented X 3, normal motor function, normal sensory function, no focal deficits noted. [] Psychologic: Affect normal, judgement normal, mood normal. [] Current Patient Data Vital Signs Vital Signs Date Time Temp Pulse Resp B/P Pulse Ox O2 Delivery O2 Flow Rate FiO2 01/15/17 12:30 62 19 147/67 94 Nasal Cannula 2 01/15/17 11:35 97.7 97.7 Lab Values Laboratory Tests Test 01/15/17 12:05 01/15/17 12:09 01/15/17 12:25 Urine Collection Type Unknown Urine Color Yellow Urine Clarity Clear Urine pH 5.0 Urine Specific [place] <=1.005 Urine Protein Negativemg/dL (NEG-TRACE) Urine Glucose (UA) Negativemg/dL (NEG) Urine Ketones (Stick) Negativemg/dL (NEG) Urine Blood Negative (NEG) Urine Nitrite Negative (NEG) Urine Bilirubin Negative (NEG) Urine Urobilinogen Dipstick 0.2mg/dL (0.2 mg/dL) Urine Leukocyte Esterase Trace (NEG) Urine RBC 0/HPF (0-2) Urine WBC Occ/HPF (0-4) Urine Squamous Epithelial Cells Occ/LPF Urine Bacteria 0/HPF (0-FEW) Stool Occult Blood Positive (NEG) White Blood Count 7.8x10^3/uL (4.0-11.0) Red Blood Count 3.73x10^6/uL (3.50-5.40) Hemoglobin 11.9g/dL (12.0-15.5) L Hematocrit 35.8% (36.0-47.0) L Mean Corpuscular Volume 96fL (79-100) Mean Corpuscular Hemoglobin 32pg (25-35) Mean Corpuscular Hemoglobin Concent 33g/dL (31-37) Red Cell Distribution Width 13.8% (11.5-14.5) Platelet Count 250x10^3/uL (140-400) Neutrophils (%) (Auto) 69% (31-73) Lymphocytes (%) (Auto) 19% (24-48) L Monocytes (%) (Auto) 8% (0-9) Eosinophils (%) (Auto) 3% (0-3) Basophils (%) (Auto) 1% (0-3) Neutrophils # (Auto) 5.3x10^3uL (1.8-7.7) Lymphocytes # (Auto) 1.5x10^3/uL (1.0-4.8) Monocytes # (Auto) 0.6x10^3/uL (0.0-1.1) Eosinophils # (Auto) 0.2x10^3/uL (0.0-0.7) Basophils # (Auto) 0.1x10^3/uL (0.0-0.2) Sodium Level 136mmol/L (136-145) Potassium Level 3.9mmol/L (3.5-5.1) Chloride Level 98mmol/L (98-107) Carbon Dioxide Level 28mmol/L (21-32) Anion Gap 10 (6-14) Blood Urea Nitrogen 40mg/dL (7-20) H Creatinine 2.0mg/dL (0.6-1.0) H Estimated GFR (Cockcroft-Gault) 23.7 Glucose Level 111mg/dL (70-99) H Calcium Level 9.2mg/dL (8.5-10.1) Laboratory Tests 01/15/17 12:25 Laboratory Tests 01/15/17 12:25 EKG EKG EKG as interpreted by me shows some mild ST abnormalities in leads 1, 2, V6. There are no obvious ST elevations. This is a sinus rhythm with a rate of 62 bpm. There is LVH criteria but no other findings. Radiology/Procedures Radiology/Procedures [] Course & Med Decision Making Course & Med Decision Making Pertinent Labs and Imaging studies reviewed. (See chart for details) 86-year-old female who's having an episode of bright red blood per rectum will be given full laboratory workup. Hemoccult was not grossly positive but will be sent for analysis. She is requiring supplemental oxygen at this time which is likely secondary to her history of aortic valve disease. Laboratory workup revealed a slightly elevated BUN/creatinine ratio. Hemoccult was positive. Hemoglobin was stable at 11.9. In light of her age and history of aortic valve disease, I'll be admitting her with GI and cardiology consult for her ongoing GI bleed. I discussed the need to do this with the hospitalist, Dr. Browning, who agreed to accept the patient for evaluation and treatment. Dragon Disclaimer Dragon Disclaimer This electronic medical record was generated, in whole or in part, using a voice recognition dictation system. Departure Departure Impression: Primary Impression: Rectal bleed Additional Impressions: Severe aortic stenosis Hypoxia Disposition: ADMITTED INPATIENT Admitting Physician: Neptali Browning Condition: STABLE Referrals: OWEN GACRIA MD (PCP) Problem Qualifiers DEIDRA RAY DO Jan 15, 2017 12:27
[2017-01-15 12:35] LABS: BACTERIA,URINE 0 /HPF (0-FEW); RBC,URINE 0 /HPF (0-2); WBC,URINE OCC /HPF (0-4)
[2017-01-15 12:36] LABS: SQUAMOUS EPITHELIAL CELL,UR OCC /LPF
[2017-01-15 12:40] LABS: BASO # 0.1 x10^3/uL (0.0-0.2); BASO % 1 % (0-3); EOS % 3 % (0-3); HEMATOCRIT 35.8 % (36.0-47.0); HEMOGLOBIN 11.9 g/dL (12.0-15.5); LYMPH # 1.5 x10^3/uL (1.0-4.8); LYMPH % 19 % (24-48); MEAN CORPUSCULAR HEMOGLOBIN 32 pg (25-35); MEAN CORPUSCULAR HGB CONC 33 g/dL (31-37); MEAN CORPUSCULAR VOLUME 96 fL (79-100); MONO % 8 % (0-9); NEUT % 69 % (31-73); PLATELET COUNT 250 x10^3/uL (140-400); RED BLOOD COUNT 3.73 x10^6/uL (3.50-5.40); RED CELL DISTRIBUTION WIDTH 13.8 % (11.5-14.5); WHITE BLOOD COUNT 7.8 x10^3/uL (4.0-11.0)
[2017-01-15 12:41] LABS: NEG OBC FOB NEG; POS OBC FOB POS
--- NOTE | 2017-01-15 12:48 | EKG ---
[facility] [address] [place] [address] Test Date: 2017-01-15 Test Time: 12:21:44 Pat Name: DANIELLA CHAMPION Department: Room: Gender: F [employer]: : [id number] Requested By: DEIDRA RAY Order Number: [id number] Reading MD: Jose Cruz Monroy Measurements Intervals [place] Rate: 62 P: -1 SD: 180 QRS: 17 QRSD: 102 T: 131 QT: 452 QTc: 461 Interpretive Statements SINUS RHYTHM LVH WITH REPOLARIZATION ABNORMALITY Electronically Signed On 01-16-2017 15:52:55 CDT by Jose Cruz Monroy
[2017-01-15 12:57] LABS: CALCIUM 9.2 mg/dL (8.5-10.1); GFR 23.7; POTASSIUM 3.9 mmol/L (3.5-5.1)
--- NOTE | 2017-01-15 15:04 | ACF ---
Admission Forms Criteria GASTROINTESTINAL BLEEDING Clinical Indications for Inpatient Care (Place 'X' for any and all applicable criteria): Ongoing inpatient care may be indicated for gastrointestinal bleeding with ANY ONE of the following (4)(20)(21)(22)(23)(24): [X]I. Active bleeding (eg, fresh voluminous blood in emesis or nasogastric aspirate, or per rectum) [ ]II. Hemodynamic instability [ ]III. Anticoagulation therapy or coagulopathy ((eg, advanced liver disease, irreversible anticoagulation) [ ]IV. Ischemic colitis (22) [ ]V. Endoscopy showing arterial bleeding, adherent clot, nonbleeding visible vessel, varices, flat red spots, ulcer size greater than 2 cm, or portal hypertensive gastropathy [ ]. High-risk low platelet count [ ]VII. Anemia requiring inpatient care as indicated by ANY ONE of the following a)[ ] Cognitive impairment b)[ ] Syncope c)[ ] Heart failure d)[ ] Chest pain e)[ ] Dyspnea f)[ ] Other findings suggesting inadequate perfusion (eg, peripheral or myocardial ischemia, end organ dysfunction) [ ]VIII. High-risk low platelet count [ ]IX. Suspected variceal cause of bleeding as indicated by ANY ONE of the following(27)(28): a)[ ] Known varices b)[ ] Hepatomegaly or splenomegaly c)[ ] Ascites d)[ ] Jaundice or scleral icterus e)[ ] History of liver disease (eg, cirrhosis) f)[ ] Physical findings of portal hypertension (eg, caput medusa) g)[ ] Comorbid disorder indicating risk for portal vein thrombosis (eg , abdominal surgery, sepsis, shock, exchange transfusion, prior umbilical vein catheterization) Extended stay may be needed until ALL of the following are present(20)(38)(47): [ ]a) Hemodynamic stability [ ]b) No evidence of active bleeding (eg, stable Hematocrit) [ ]c) Platelet count, prothrombin time, and partial thromboplastin time acceptable for next level of care [ ]d) Surgical or other acute intervention not needed [ ]e) Oral hydration and diet tolerated The original [employer] content created by [employer] has been revised. The portions of the content which have been revised are identified through the use of italic text or in bold, and [employer] has neither reviewed nor approved the modified material. All other unmodified content is copyright [facility]. Please see references footnoted in the original [facility] edition 2016 Admission Criteria Met?: Yes GEORGINA MUÑOZ Jan 15, 2017 15:04
[2017-01-15 15:15] VITALS: BP_SYST 156; BP_SYST 98; BP_DIAS 49; BP_DIAS 60
[2017-01-15 15:40] VITALS: BP 156/60
--- NOTE | 2017-01-15 16:26 | PDOC2 ---
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 This started today and was told byt the attendant who was helping her at the mother house that it was a lot of blood. There was no pain associated with it. There was no recent diarrhea, vomiting. There was no fever and there was no hx of bowel CA. Consult is for severe aortic stenosis which is known and prior to hospitalization and currently there has been no episodes of chest pain, SOA, palpitations syncopal episodeds. She is known for past multiple falls associated with presyncope and eventual SDH. She was recently here in November and since then she has followed by at for pending TAVR. Workup has been underway and has had LHC 2 weeks ago with no significant disease and this was told to her and CT chest/abd/opelvis has been done as well. She is suppose to follow up with her main cardiolgist Dr. Hodges on Sunday. She followed up with her PCP today and was advised to go to ED. Currently she is comfortable and denies any discomfort. PAST MEDICAL HISTORY Cardiovascular: CHF, HTN, Hyperlipidemia Pulmonary: Bronchitis CENTRAL NERVOUS SYSTEM: Other (SDH) GI: GERD Psych: Depression Musculoskeletal: Osteoarthritis, Other (multiple falls. ) Rheumatologic: No pertinent hx Infectious disease: No pertinent hx ENT: No pertinent hx Endocrine: Hypothyroidism Dermatology: No pertinent hx PAST SURGICAL HISTORY Past Surgical History: Appendectomy, Other (back surgery) FAMILY HISTORY Family History noncontributory to CV SOCIAL HISTORY Smoke: No ALCOHOL: none Drugs: None Lives: with Family ALLERGIES ALLERGIES: Coded Allergies: Iodine and Iodide Containing Produc (Verified Allergy, Intermediate, ) ROS Review of System 14 point ROS evaluated with pertinent positives noted per HPI PHYSICAL EXAM General: Alert, Oriented X3, Cooperative HEENT: Atraumatic, Mucous membr. moist/pink Lungs: Clear to auscultation, Normal air movement Heart: Regular rate (not on heart monitor), Normal S1, Normal S2, Other (S4; 5/ 6 systolic murmur to TAM border) Abdomen: Soft, No tenderness Extremities: No cyanosis, Other (1+ bilateral LE pitting edema) Skin: No breakdown, No significant lesion Neuro: Normal speech, Sensation intact Psych/Mental Status: Mental status NL, Mood NL MUSCULOSKELETAL: Osteoarthritic changes both hands VITALS VITALS Vital Signs Date Time Temp Pulse Resp B/P Pulse Ox O2 Delivery O2 Flow Rate FiO2 01/15/17 15:40 97.5 69 20 156/60 98 Nasal Cannula 4.0 97.5 LABS Lab: Laboratory Tests Test 01/15/17 12:05 01/15/17 12:09 01/15/17 12:25 Urine Collection Type Unknown Urine Color Yellow Urine Clarity Clear Urine pH 5.0 Urine Specific [place] <=1.005 Urine Protein Negativemg/dL (NEG-TRACE) Urine Glucose (UA) Negativemg/dL (NEG) Urine Ketones (Stick) Negativemg/dL (NEG) Urine Blood Negative (NEG) Urine Nitrite Negative (NEG) Urine Bilirubin Negative (NEG) Urine Urobilinogen Dipstick 0.2mg/dL (0.2 mg/dL) Urine Leukocyte Esterase Trace (NEG) Urine RBC 0/HPF (0-2) Urine WBC Occ/HPF (0-4) Urine Squamous Epithelial Cells Occ/LPF Urine Bacteria 0/HPF (0-FEW) Stool Occult Blood Positive (NEG) White Blood Count 7.8x10^3/uL (4.0-11.0) Red Blood Count 3.73x10^6/uL (3.50-5.40) Hemoglobin 11.9g/dL (12.0-15.5) Hematocrit 35.8% (36.0-47.0) Mean Corpuscular Volume 96fL (79-100) Mean Corpuscular Hemoglobin 32pg (25-35) Mean Corpuscular Hemoglobin Concent 33g/dL (31-37) Red Cell Distribution Width 13.8% (11.5-14.5) Platelet Count 250x10^3/uL (140-400) Neutrophils (%) (Auto) 69% (31-73) Lymphocytes (%) (Auto) 19% (24-48) Monocytes (%) (Auto) 8% (0-9) Eosinophils (%) (Auto) 3% (0-3) Basophils (%) (Auto) 1% (0-3) Neutrophils # (Auto) 5.3x10^3uL (1.8-7.7) Lymphocytes # (Auto) 1.5x10^3/uL (1.0-4.8) Monocytes # (Auto) 0.6x10^3/uL (0.0-1.1) Eosinophils # (Auto) 0.2x10^3/uL (0.0-0.7) Basophils # (Auto) 0.1x10^3/uL (0.0-0.2) Sodium Level 136mmol/L (136-145) Potassium Level 3.9mmol/L (3.5-5.1) Chloride Level 98mmol/L (98-107) Carbon Dioxide Level 28mmol/L (21-32) Anion Gap 10 (6-14) Blood Urea Nitrogen 40mg/dL (7-20) Creatinine 2.0mg/dL (0.6-1.0) Estimated GFR (Cockcroft-Gault) 23.7 Glucose Level 111mg/dL (70-99) Calcium Level 9.2mg/dL (8.5-10.1) ECHOCARDIOGRAM ECHOCARDIOGRAM <Conclusion> Left ventricle systolic function is normal. The Ejection Fraction is 55-60%. There is normal LV segmental wall motion. Calculated aortic valve area is 0.37 cm2 with maximum pressure gradient of 142 mmHg and mean pressure gradient of 81 mmHg. Doppler and color-flow analysis revealed critical aortic stenosis. Doppler and Color Flow revealed moderate tricuspid regurgitation. There is moderate-severe pulmonary hypertension. The PA pressure was estimated at 70 mmHg. DATE: 12/04/16 1037 ASSESSMENT/PLAN ASSESSMENT/PLAN 1. Critical : 0.37 cm2 with maximum pressure gradient of 142 mmHg and mean pressure gradient of 81 mmHg. 2. GI bleed: Hgb 11.9 3. Hx of multiple falls with prior SDH: last noted via CT in 10/2016. 4. Chronic diastolic CHF 5. 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 GI consult pending 2. Maintain adequate intravascular volume, hold lasix today 3. Resume BB and amlodipine 4. Resume ASA once cleared by GI 5. Workup has been started in [facility], pt is awaiting schedule for TAVR. 6. Place on tele monitor 7. Supportive care. follow up with Dr. Hodges scheduled on Sunday if discharge. Problems: OCTAVIA WRAY MD 01/15/17 1809: CARDIAC CONSULT ALLERGIES ALLERGIES: Coded Allergies: Iodine and Iodide Containing Produc (Verified Allergy, Intermediate, ) ASSESSMENT/PLAN ASSESSMENT/PLAN Pt. seen and examined. 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 86 y.o with known severe . Now with GIB, recent subdural Awaiting TAVR at Ok to proceed with GI w/u as needed, she would be low risk for EGD/Colon if necessary. (I explained this to patient) If no further w/u needed, then may DC from CV perspective and f/u with [facility] for TAVR timing (Given recent SDH and now possible lower GIB, may need to wait prior to TAVR as the procedure would expose her to heparin and Plavix) Will follow peripherally. Thanks for consult. Problems: NEEMA WONG APRN Jan 15, 2017 16:26 OCTAVIA WRAY MD Jan 15, 2017 18:09
[2017-01-15] MEDS: IV NORMAL SALINE 1000ML BAG 1,000 ML IV SCH (16:30)
[2017-01-15] MEDS ORDERED: ACETAMINOPHEN 500 MG TABLET PO PRN (18:00)
[2017-01-15] MEDS: METOPROLOL SUCC 24HR ER 100 MG TAB.ER.24H. PO SCH (18:06)
[2017-01-15] MEDS: amLODIPine BESYLATE 5 MG TABLET PO SCH (18:06)
--- NOTE | 2017-01-15 18:27 | HP ---
ADMIT DATE: 01/15/2017 CHIEF COMPLAINT: Bright red blood per rectum. HISTORY OF PRESENT ILLNESS: The patient is a pleasant 86-year-old female who works with the [employer]. 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 Basically, she presents to the ER today with bright red blood per rectum. Her hemoglobin is 8.9. She is also hypoxic. She is awaiting the aortic valve replacement at . I have discussed the case with the ER physician. We are going to admit the patient and consult GI. PAST MEDICAL HISTORY: Aortic valve disease. She is awaiting surgery. ALLERGIES: None. FAMILY HISTORY: Hypertension. SOCIAL HISTORY: She does not drink, smoke, or take drugs. MEDICATIONS: Reviewed. Please refer to the MRAD. REVIEW OF SYSTEMS: GENERAL: No history of weight change, weakness, or fevers. SKIN: No bruising, hair changes, or rashes. EYES: No blurred, double, or loss of vision. NOSE AND THROAT: No history of nosebleeds, hoarseness, or sore throat. HEART: No history of palpitations, chest pain, or shortness of breath on exertion. LUNGS: Denies cough, hemoptysis, wheezing, or shortness of breath. GASTROINTESTINAL: She complains of bright red blood per rectum. GENITOURINARY: No history of frequency, urgency, hesitancy, or nocturia. NEUROLOGIC: Denies history of numbness, tingling, tremor, or weakness. PSYCHIATRIC: No history of panic, anxiety, or depression. ENDOCRINE: No history of heat or cold intolerance, polyuria, or polydipsia. EXTREMITIES: Denies muscle weakness, joint pain, pain on walking, or stiffness. PHYSICAL EXAMINATION: VITAL SIGNS: Temperature afebrile, pulse 92, respirations 18, and blood pressure 144/90. GENERAL: She is alert, cooperative. HEART: Normal S1, S2. LUNGS: Clear. ABDOMEN: Soft, positive bowel sounds, tender. EXTREMITIES: No edema. SKIN: No rashes. PSYCHIATRIC: She is stable. VASCULAR: Good capillary refill. ENDOCRINE: No thyromegaly. LYMPHATICS: No cervical nodes. HEMATOPOIETIC: No bruising. LABORATORY DATA: Hemoglobin is 11.9. ASSESSMENT AND PLAN: Gastrointestinal bleed in an elderly female who has aortic valve disease and hypoxia. The patient has been admitted. We will check serial hemoglobin levels. Consult Gastroenterology. IV proton pump inhibitors. Continue home medicines. Stop her blood thinners. KRISTAL MCLEAN DO DR: MCKINLEY/roxy JOB#: [id number] / [id number]
[2017-01-15 19:10] VITALS: BP 122/50
[2017-01-15] MEDS: ACETAMINOPHEN 500 MG TABLET PO SCH (20:29)
[2017-01-15] MEDS: diphenhydrAMINE HCL 25 MG CAPSULE PO SCH (20:29)
[2017-01-15] MEDS: ASPIRIN CHEWABLE 81 MG TABLET. PO SCH (20:29)
[2017-01-15] MEDS: clonazePAM 0.5 MG TABLET PO SCH (20:30)
[2017-01-15] MEDS: CALCIUM CARBONATE 500 MG TABLET PO SCH (20:30)
[2017-01-15 23:10] VITALS: BP 111/40
[2017-01-16] VITALS (7 sets, daily range): BP systolic 107–149; BP diastolic 34–69
[2017-01-16] MEDS: IV NORMAL SALINE 1000ML BAG 1,000 ML IV SCH ×2 (04:28→15:57)
[2017-01-16 04:50] LABS: BASO # 0.1 x10^3/uL (0.0-0.2); BASO % 1 % (0-3); EOS % 5 % (0-3); HEMATOCRIT 30.6 % (36.0-47.0); HEMOGLOBIN 10.2 g/dL (12.0-15.5); LYMPH # 1.7 x10^3/uL (1.0-4.8); LYMPH % 24 % (24-48); MEAN CORPUSCULAR HEMOGLOBIN 32 pg (25-35); MEAN CORPUSCULAR HGB CONC 33 g/dL (31-37); MEAN CORPUSCULAR VOLUME 97 fL (79-100); MONO % 8 % (0-9); NEUT % 63 % (31-73); PLATELET COUNT 217 x10^3/uL (140-400); RED BLOOD COUNT 3.16 x10^6/uL (3.50-5.40); RED CELL DISTRIBUTION WIDTH 13.7 % (11.5-14.5); WHITE BLOOD COUNT 7.3 x10^3/uL (4.0-11.0)
[2017-01-16 05:02] LABS: CALCIUM 9.1 mg/dL (8.5-10.1); CREATININE 1.9 mg/dL (0.6-1.0); GFR 25.1
[2017-01-16] MEDS: LEVOTHYROXINE 88 MCG TABLET PO SCH (06:10)
[2017-01-16] MEDS: METOPROLOL SUCC 24HR ER 100 MG TAB.ER.24H. PO SCH (06:12)
[2017-01-16] MEDS: clonazePAM 0.5 MG TABLET PO SCH ×3 (07:59→23:03)
[2017-01-16] MEDS: CALCIUM CARBONATE 500 MG TABLET PO SCH ×4 (07:59→22:55)
[2017-01-16] MEDS: PANTOPRAZOLE 40 MG TABLET.DR. PO SCH (07:59)
[2017-01-16] MEDS: amLODIPine BESYLATE 5 MG TABLET PO SCH (07:59)
[2017-01-16] MEDS: FUROSEMIDE 40 MG TABLET. PO SCH (08:00)
--- NOTE | 2017-01-16 08:31 | PDOC2 ---
GI CONSULT Reason For Consult: Rectal bleeding HPI: HPI: 86 y/o female admitted through the ER for one episode painless rectal bleeding. She was straining to have a bowel movement and she and her nurse witnessed a significant amount of bright red blood in the toilet. There has been no recurrence since admission. No previous episodes. Denies dizziness, abdominal pain, sweating, n/v. H/o constipation; she prefers to avoid treatment for this as has had diarrhea as a result in the past. Additional h/o hemorrhoids long ago. H/o GERD controlled w/ Prilosec OTC QD. Takes ASA 81mg QD. H/o aortic stenosis, multiple falls, and subdural hematoma. Workup underway at for AVR (note reports has had T chest/A/P). No previous colonoscopy or EGD. Labs: Hgb 11.9 to 10.2 w/ normal indices and RDW. For comparison, last month Hgb 10.7 - 11.4. BUN 40, Cr 1.9. Hemoccult positive. ASA administered last night. PMH: PMH: , CHF, HTN, HLD, SDH, GERD, OA, depression, hypothyroidism, appendectomy, back surgery FH: Family History: Cancer (nephew had colon cancer) Social History: Smoke: No ALCOHOL: none Drugs: None ROS: GEN: Denies fevers, chills, sweats HEENT: Denies blurred vision, sore throat CV: Denies chest pain RESP: Denies shortness of air, cough GI: Per HPI : Denies hematuria, dysuria ENDO: Denies weight changes NEURO: Denies confusion, dizziness MSK: Denies weakness, joint pain/swelling SKIN: Denies jaundice, pruritus VItals: Vitals: Vital Signs Date Time Temp Pulse Resp B/P Pulse Ox O2 Delivery O2 Flow Rate FiO2 01/16/17 07:59 64 146/51 01/16/17 07:00 96.3 18 98 Room Air 96.3 01/16/17 06:13 2.0 Labs: Labs: Laboratory Tests Test 01/15/17 12:05 01/15/17 12:09 01/15/17 12:25 01/16/17 03:55 Urine Collection Type Unknown Urine Color Yellow Urine Clarity Clear Urine pH 5.0 Urine Specific [place] <=1.005 Urine Protein Negativemg/dL (NEG-TRACE) Urine Glucose (UA) Negativemg/dL (NEG) Urine Ketones (Stick) Negativemg/dL (NEG) Urine Blood Negative (NEG) Urine Nitrite Negative (NEG) Urine Bilirubin Negative (NEG) Urine Urobilinogen Dipstick 0.2mg/dL (0.2 mg/dL) Urine Leukocyte Esterase Trace (NEG) Urine RBC 0/HPF (0-2) Urine WBC Occ/HPF (0-4) Urine Squamous Epithelial Cells Occ/LPF Urine Bacteria 0/HPF (0-FEW) Stool Occult Blood Positive (NEG) White Blood Count 7.8x10^3/uL (4.0-11.0) 7.3x10^3/uL (4.0-11.0) Red Blood Count 3.73x10^6/uL (3.50-5.40) 3.16x10^6/uL (3.50-5.40) Hemoglobin 11.9g/dL (12.0-15.5) 10.2g/dL (12.0-15.5) Hematocrit 35.8% (36.0-47.0) 30.6% (36.0-47.0) Mean Corpuscular Volume 96fL (79-100) 97fL (79-100) Mean Corpuscular Hemoglobin 32pg (25-35) 32pg (25-35) Mean Corpuscular Hemoglobin Concent 33g/dL (31-37) 33g/dL (31-37) Red Cell Distribution Width 13.8% (11.5-14.5) 13.7% (11.5-14.5) Platelet Count 250x10^3/uL (140-400) 217x10^3/uL (140-400) Neutrophils (%) (Auto) 69% (31-73) 63% (31-73) Lymphocytes (%) (Auto) 19% (24-48) 24% (24-48) Monocytes (%) (Auto) 8% (0-9) 8% (0-9) Eosinophils (%) (Auto) 3% (0-3) 5% (0-3) Basophils (%) (Auto) 1% (0-3) 1% (0-3) Neutrophils # (Auto) 5.3x10^3uL (1.8-7.7) 4.5x10^3uL (1.8-7.7) Lymphocytes # (Auto) 1.5x10^3/uL (1.0-4.8) 1.7x10^3/uL (1.0-4.8) Monocytes # (Auto) 0.6x10^3/uL (0.0-1.1) 0.6x10^3/uL (0.0-1.1) Eosinophils # (Auto) 0.2x10^3/uL (0.0-0.7) 0.4x10^3/uL (0.0-0.7) Basophils # (Auto) 0.1x10^3/uL (0.0-0.2) 0.1x10^3/uL (0.0-0.2) Sodium Level 136mmol/L (136-145) 140mmol/L (136-145) Potassium Level 3.9mmol/L (3.5-5.1) 4.0mmol/L (3.5-5.1) Chloride Level 98mmol/L (98-107) 104mmol/L (98-107) Carbon Dioxide Level 28mmol/L (21-32) 26mmol/L (21-32) Anion Gap 10 (6-14) 10 (6-14) Blood Urea Nitrogen 40mg/dL (7-20) 40mg/dL (7-20) Creatinine 2.0mg/dL (0.6-1.0) 1.9mg/dL (0.6-1.0) Estimated GFR (Cockcroft-Gault) 23.7 25.1 Glucose Level 111mg/dL (70-99) 92mg/dL (70-99) Calcium Level 9.2mg/dL (8.5-10.1) 9.1mg/dL (8.5-10.1) Allergies: Coded Allergies: Iodine and Iodide Containing Produc (Verified Allergy, Intermediate, ) Medications: Current Medications Medications (Trade) Dose Ordered Sig/Deborah Route PRN Reason Start Time Stop Time Status Last Admin Dose Admin Amlodipine Besylate (Norvasc) 5 mg DAILY PO 01/15/17 17:00 01/16/17 07:59 Metoprolol Succinate (Toprol Xl) 100 mg DAILY07 PO 01/15/17 17:00 01/16/17 06:12 Aspirin (Children'S Aspirin) 81 mg HS PO 01/15/17 21:00 01/15/17 20:29 Calcium Carbonate/ Glycine (Oscal) 500 mg QID PO 01/15/17 21:00 01/16/17 07:59 Furosemide (Lasix) 40 mg DAILY PO 01/16/17 09:00 01/16/17 08:00 Levothyroxine Sodium (Synthroid) 88 mcg DAILY06 PO 01/16/17 06:00 01/16/17 06:10 Acetaminophen (Tylenol) 500 mg HS PO 01/15/17 21:00 01/15/17 20:29 Clonazepam (Klonopin) 0.25 mg TID PO 01/15/17 21:00 01/16/17 07:59 Pantoprazole Sodium (Protonix) 40 mg DAILYAC PO 01/16/17 07:30 01/16/17 07:59 Diphenhydramine HCl (Benadryl) 25 mg HS PO 01/15/17 21:00 01/15/17 20:29 Imaging: Imaging: - PE: GEN: NAD, up to chair eating breakfast HEENT: atraumatic, PERRL LUNGS: CTAB anteriorly HEART: RRR +loud murm ABD: NABS, S/ND/NT EXTREMITY: BLE edema SKIN: no rashes, no jaundice NEURO/PSYCH: A & O 3 A/P: A/P: Painless rectal bleeding -one instance at assisted living, passed significant amount of red blood w/ straining -has otherwise been asymptomatic -h/o constipation (prefers to treat w/ prune juice), h/o hemorrhoids -no previous colonoscopy -on ASA GERD -on PPI QD, no previous EGD CRC screen -no previous colonoscopy Aortic stenosis -workup ongoing at for AVR, cleared by cardiology for 'scopes if needed -on ASA 81mg -- Ideally w/ significant would wait until after valve replacement to consider colonoscopy; pt agrees. GOLDEN JIM Jan 16, 2017 08:31
[2017-01-16 14:26] LABS: HEMATOCRIT 35.5 % (36.0-47.0); HEMOGLOBIN 11.8 g/dL (12.0-15.5); RED BLOOD COUNT 3.66 x10^6/uL (3.50-5.40); WHITE BLOOD COUNT 8.8 x10^3/uL (4.0-11.0)
--- NOTE | 2017-01-16 14:35 | PDOC ---
PROGRESS NOTES Chief Complaint Chief Complaint cc: rectal bleeding A/P 1. Critical : 0.37 cm2 with maximum pressure gradient of 142 mmHg and mean pressure gradient of 81 mmHg. 2. Rectal bleeding: monitor hemoglobin, transfuse blood if hemoglobin drops < 8 , hemogram q6hrs, Dr Kang consulted, NPO, mild iv hydration. 3. Hx of multiple falls with prior SDH: last noted via CT in 10/2016. 4. Chronic diastolic CHF 5. 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: History of Present Illness History of Present Illness bright rectal bleeding no fever Vitals Vitals Vital Signs Date Time Temp Pulse Resp B/P Pulse Ox O2 Delivery O2 Flow Rate FiO2 01/16/17 11:00 96.3 63 18 120/41 97 Room Air 96.3 01/16/17 07:54 2.0 Physical Exam General: Alert, Oriented X3, Cooperative Heart: Regular rate (not on heart monitor), Normal S1, Normal S2, Other (S4; 5/ 6 systolic murmur to TAM border) Lungs: Clear Abdomen: Soft, No tenderness Extremities: No cyanosis, Other (1+ bilateral LE pitting edema) Skin: No breakdown, No significant lesion Labs LABS Laboratory Tests Test 01/16/17 03:55 01/16/17 14:15 White Blood Count 7.3x10^3/uL (4.0-11.0) 8.8x10^3/uL (4.0-11.0) Red Blood Count 3.16x10^6/uL (3.50-5.40) 3.66x10^6/uL (3.50-5.40) Hemoglobin 10.2g/dL (12.0-15.5) 11.8g/dL (12.0-15.5) Hematocrit 30.6% (36.0-47.0) 35.5% (36.0-47.0) Mean Corpuscular Volume 97fL (79-100) 97fL (79-100) Mean Corpuscular Hemoglobin 32pg (25-35) 32pg (25-35) Mean Corpuscular Hemoglobin Concent 33g/dL (31-37) 33g/dL (31-37) Red Cell Distribution Width 13.7% (11.5-14.5) 14.0% (11.5-14.5) Platelet Count 217x10^3/uL (140-400) 259x10^3/uL (140-400) Neutrophils (%) (Auto) 63% (31-73) Lymphocytes (%) (Auto) 24% (24-48) Monocytes (%) (Auto) 8% (0-9) Eosinophils (%) (Auto) 5% (0-3) Basophils (%) (Auto) 1% (0-3) Neutrophils # (Auto) 4.5x10^3uL (1.8-7.7) Lymphocytes # (Auto) 1.7x10^3/uL (1.0-4.8) Monocytes # (Auto) 0.6x10^3/uL (0.0-1.1) Eosinophils # (Auto) 0.4x10^3/uL (0.0-0.7) Basophils # (Auto) 0.1x10^3/uL (0.0-0.2) Sodium Level 140mmol/L (136-145) Potassium Level 4.0mmol/L (3.5-5.1) Chloride Level 104mmol/L (98-107) Carbon Dioxide Level 26mmol/L (21-32) Anion Gap 10 (6-14) Blood Urea Nitrogen 40mg/dL (7-20) Creatinine 1.9mg/dL (0.6-1.0) Estimated GFR (Cockcroft-Gault) 25.1 Glucose Level 92mg/dL (70-99) Calcium Level 9.1mg/dL (8.5-10.1) Assessment and Plan Assessmemt and Plan Problems Medical Problems: (1) Hypoxia Status: Acute (2) Rectal bleed Status: Acute (3) Severe aortic stenosis Status: Acute Problems: Comment Review of Relevant I have reviewed the following items issa (where applicable) has been applied. Labs Laboratory Tests Test 01/15/17 12:05 01/15/17 12:09 01/15/17 12:25 01/16/17 03:55 Urine Collection Type Unknown Urine Color Yellow Urine Clarity Clear Urine pH 5.0 Urine Specific [place] <=1.005 Urine Protein Negativemg/dL (NEG-TRACE) Urine Glucose (UA) Negativemg/dL (NEG) Urine Ketones (Stick) Negativemg/dL (NEG) Urine Blood Negative (NEG) Urine Nitrite Negative (NEG) Urine Bilirubin Negative (NEG) Urine Urobilinogen Dipstick 0.2mg/dL (0.2 mg/dL) Urine Leukocyte Esterase Trace (NEG) Urine RBC 0/HPF (0-2) Urine WBC Occ/HPF (0-4) Urine Squamous Epithelial Cells Occ/LPF Urine Bacteria 0/HPF (0-FEW) Stool Occult Blood Positive (NEG) White Blood Count 7.8x10^3/uL (4.0-11.0) 7.3x10^3/uL (4.0-11.0) Red Blood Count 3.73x10^6/uL (3.50-5.40) 3.16x10^6/uL (3.50-5.40) Hemoglobin 11.9g/dL (12.0-15.5) 10.2g/dL (12.0-15.5) Hematocrit 35.8% (36.0-47.0) 30.6% (36.0-47.0) Mean Corpuscular Volume 96fL (79-100) 97fL (79-100) Mean Corpuscular Hemoglobin 32pg (25-35) 32pg (25-35) Mean Corpuscular Hemoglobin Concent 33g/dL (31-37) 33g/dL (31-37) Red Cell Distribution Width 13.8% (11.5-14.5) 13.7% (11.5-14.5) Platelet Count 250x10^3/uL (140-400) 217x10^3/uL (140-400) Neutrophils (%) (Auto) 69% (31-73) 63% (31-73) Lymphocytes (%) (Auto) 19% (24-48) 24% (24-48) Monocytes (%) (Auto) 8% (0-9) 8% (0-9) Eosinophils (%) (Auto) 3% (0-3) 5% (0-3) Basophils (%) (Auto) 1% (0-3) 1% (0-3) Neutrophils # (Auto) 5.3x10^3uL (1.8-7.7) 4.5x10^3uL (1.8-7.7) Lymphocytes # (Auto) 1.5x10^3/uL (1.0-4.8) 1.7x10^3/uL (1.0-4.8) Monocytes # (Auto) 0.6x10^3/uL (0.0-1.1) 0.6x10^3/uL (0.0-1.1) Eosinophils # (Auto) 0.2x10^3/uL (0.0-0.7) 0.4x10^3/uL (0.0-0.7) Basophils # (Auto) 0.1x10^3/uL (0.0-0.2) 0.1x10^3/uL (0.0-0.2) Sodium Level 136mmol/L (136-145) 140mmol/L (136-145) Potassium Level 3.9mmol/L (3.5-5.1) 4.0mmol/L (3.5-5.1) Chloride Level 98mmol/L (98-107) 104mmol/L (98-107) Carbon Dioxide Level 28mmol/L (21-32) 26mmol/L (21-32) Anion Gap 10 (6-14) 10 (6-14) Blood Urea Nitrogen 40mg/dL (7-20) 40mg/dL (7-20) Creatinine 2.0mg/dL (0.6-1.0) 1.9mg/dL (0.6-1.0) Estimated GFR (Cockcroft-Gault) 23.7 25.1 Glucose Level 111mg/dL (70-99) 92mg/dL (70-99) Calcium Level 9.2mg/dL (8.5-10.1) 9.1mg/dL (8.5-10.1) Test 01/16/17 14:15 White Blood Count 8.8x10^3/uL (4.0-11.0) Red Blood Count 3.66x10^6/uL (3.50-5.40) Hemoglobin 11.8g/dL (12.0-15.5) Hematocrit 35.5% (36.0-47.0) Mean Corpuscular Volume 97fL (79-100) Mean Corpuscular Hemoglobin 32pg (25-35) Mean Corpuscular Hemoglobin Concent 33g/dL (31-37) Red Cell Distribution Width 14.0% (11.5-14.5) Platelet Count 259x10^3/uL (140-400) Laboratory Tests Test 01/16/17 03:55 01/16/17 14:15 White Blood Count 7.3x10^3/uL (4.0-11.0) 8.8x10^3/uL (4.0-11.0) Red Blood Count 3.16x10^6/uL (3.50-5.40) 3.66x10^6/uL (3.50-5.40) Hemoglobin 10.2g/dL (12.0-15.5) 11.8g/dL (12.0-15.5) Hematocrit 30.6% (36.0-47.0) 35.5% (36.0-47.0) Mean Corpuscular Volume 97fL (79-100) 97fL (79-100) Mean Corpuscular Hemoglobin 32pg (25-35) 32pg (25-35) Mean Corpuscular Hemoglobin Concent 33g/dL (31-37) 33g/dL (31-37) Red Cell Distribution Width 13.7% (11.5-14.5) 14.0% (11.5-14.5) Platelet Count 217x10^3/uL (140-400) 259x10^3/uL (140-400) Neutrophils (%) (Auto) 63% (31-73) Lymphocytes (%) (Auto) 24% (24-48) Monocytes (%) (Auto) 8% (0-9) Eosinophils (%) (Auto) 5% (0-3) Basophils (%) (Auto) 1% (0-3) Neutrophils # (Auto) 4.5x10^3uL (1.8-7.7) Lymphocytes # (Auto) 1.7x10^3/uL (1.0-4.8) Monocytes # (Auto) 0.6x10^3/uL (0.0-1.1) Eosinophils # (Auto) 0.4x10^3/uL (0.0-0.7) Basophils # (Auto) 0.1x10^3/uL (0.0-0.2) Sodium Level 140mmol/L (136-145) Potassium Level 4.0mmol/L (3.5-5.1) Chloride Level 104mmol/L (98-107) Carbon Dioxide Level 26mmol/L (21-32) Anion Gap 10 (6-14) Blood Urea Nitrogen 40mg/dL (7-20) Creatinine 1.9mg/dL (0.6-1.0) Estimated GFR (Cockcroft-Gault) 25.1 Glucose Level 92mg/dL (70-99) Calcium Level 9.1mg/dL (8.5-10.1) Microbiology 01/15/17 Urine Culture - Preliminary, Resulted 01/15/17 Urine Culture Result 1 (YUE) - Preliminary, Resulted Medications Current Medications Sodium Chloride (Iv Sodium Chloride 0.9% 1000ml Bag) 1,000 ml @ 75 mls/hr [id number] IV ; Start 01/15/17 at 16:30 Amlodipine Besylate (Norvasc) 5 mg DAILY PO Last administered on 01/16/17 07: 59; Start 01/15/17 at 17:00 Metoprolol Succinate (Toprol Xl) 100 mg DAILY07 PO Last administered on 06:12; Start 01/15/17 at 17:00 Acetaminophen (Tylenol) 500 mg PRN Q6HRS PRN PO PAIN; Start 01/15/17 at 18:00 Aspirin (Children'S Aspirin) 81 mg HS PO Last administered on 01/15/17 20:29; Start 01/15/17 at 21:00 Calcium Carbonate/ Glycine (Oscal) 500 mg QID PO Last administered on 13:25; Start 01/15/17 at 21:00 Furosemide (Lasix) 40 mg DAILY PO Last administered on 01/16/17 08:00; Start 01/16/17 at 09:00 Levothyroxine Sodium (Synthroid) 88 mcg DAILY06 PO Last administered on 06:10; Start 01/16/17 at 06:00 Acetaminophen (Tylenol) 500 mg HS PO Last administered on 01/15/17 20:29; Start 01/15/17 at 21:00 Clonazepam (Klonopin) 0.25 mg TID PO Last administered on 01/16/17 13:25; Start 01/15/17 at 21:00 Pantoprazole Sodium (Protonix) 40 mg DAILYAC PO Last administered on 01/16/17 07:59; Start 01/16/17 at 07:30 Diphenhydramine HCl (Benadryl) 25 mg HS PO Last administered on 01/15/17 20:29 ; Start 01/15/17 at 21:00 Active Scripts Active Furosemide 40 Mg Tablet 40 Mg PO DAILY Reported Norvasc (Amlodipine Besylate) 5 Mg Tablet 1 Tab PO DAILY Acetaminophen-Diphenhyd 500-25 (Acetaminophen/Diphenhydramine) 1 Each Tablet 1- 2 Each PO HS Calcium Carbonate 500 Mg Tablet 500 Mg PO QID Aspirin 81 Mg Tab.chew 1 Tab PO HS Prilosec Otc (Omeprazole Magnesium) 20 Mg Tablet.dr 1 Tab PO DAILY16 Metoprolol Succinate ( Xl ) (Metoprolol Succinate) 100 Mg Tab.er.24h 1 Tab PO DAILY07 Clonazepam 0.25 Mg Tab.rapdis 0.25 Mg PO [id number] Synthroid (Levothyroxine Sodium) 88 Mcg Tablet 1 Tab PO DAILY06 Acetaminophen 500 Mg Tablet 1-2 Tab PO Q4-6HRS PRN Vitals/I & O Vital Sign - Last 24 Hours 01/15/17 01/15/17 01/15/17 01/15/17 15:15 15:40 15:59 18:06 Temp 97.4 97.5 97.4 97.5 Pulse 69 69 69 Resp 20 20 B/P 156/60 156/60 156/60 Pulse Ox 98 98 O2 Delivery Nasal Cannula Nasal Cannula Nasal Cannula O2 Flow Rate 4.0 4.0 2.0 01/15/17 01/15/17 01/15/17 01/15/17 18:06 19:10 20:00 23:10 Temp 97.5 97.7 97.5 97.7 Pulse 69 71 60 Resp 20 18 B/P 156/60 122/50 111/40 Pulse Ox 93 96 O2 Delivery Nasal Cannula Nasal Cannula Nasal Cannula O2 Flow Rate 2.0 2.0 2.0 01/16/17 01/16/17 01/16/17 01/16/17 03:10 06:12 06:13 07:00 Temp 97.6 97.8 96.3 97.6 97.8 96.3 Pulse 55 57 59 64 Resp 18 16 18 B/P 119/42 122/42 122/42 146/51 Pulse Ox 97 92 98 O2 Delivery Nasal Cannula Nasal Cannula Room Air O2 Flow Rate 2.0 2.0 01/16/17 01/16/17 01/16/17 07:54 07:59 11:00 Temp 96.3 96.3 Pulse 64 63 Resp 18 B/P 146/51 120/41 Pulse Ox 97 O2 Delivery Nasal Cannula Room Air O2 Flow Rate 2.0 Intake and Output 01/15/17 01/15/17 01/16/17 15:00 23:00 07:00 Intake Total 950 ml Balance 950 ml RAYNA MCLEOD MD Jan 16, 2017 14:35
[2017-01-16] MEDS ORDERED: PEG 3350/NA SULF,BICARB,CL/KCL 4,000 ML SOLUTION. PO ONE (16:15)
[2017-01-16] MEDS: diphenhydrAMINE HCL 25 MG CAPSULE PO SCH (22:55)
[2017-01-16] MEDS: ASPIRIN CHEWABLE 81 MG TABLET. PO SCH (22:55)
[2017-01-16] MEDS: ACETAMINOPHEN 500 MG TABLET PO SCH (22:55)
[2017-01-17 02:56] VITALS: BP 110/53
[2017-01-17] MEDS: LEVOTHYROXINE 88 MCG TABLET PO SCH (06:04)
[2017-01-17] MEDS: METOPROLOL SUCC 24HR ER 100 MG TAB.ER.24H. PO SCH (06:04)
[2017-01-17 07:00] VITALS: BP 113/59
[2017-01-17] MEDS: amLODIPine BESYLATE 5 MG TABLET PO SCH (08:35)
[2017-01-17] MEDS: FUROSEMIDE 40 MG TABLET. PO SCH (08:35)
[2017-01-17] MEDS: clonazePAM 0.5 MG TABLET PO SCH ×2 (08:35→14:00)
[2017-01-17] MEDS: PANTOPRAZOLE 40 MG TABLET.DR. PO SCH (08:35)
[2017-01-17] MEDS: CALCIUM CARBONATE 500 MG TABLET PO SCH ×3 (08:36→17:00)
[2017-01-17 11:00] VITALS: BP 128/52
[2017-01-17] MEDS ORDERED: IV RINGERS,LACTATED 1000ML 1,000 ML IV ONE (12:45)
[2017-01-17] MEDS ORDERED: IV RINGERS,LACTATED 1000ML 1,000 ML IV SCH (13:07)
[2017-01-17] MEDS ORDERED: LIDOCAINE 2% PF Vial for OR 5 ML VIAL. ONE (13:13)
[2017-01-17] MEDS ORDERED: PROPOFOL 20 ML IV ONE (13:13)
--- NOTE | 2017-01-17 13:46 | PDOC ---
PROGRESS NOTES Chief Complaint Chief Complaint cc: rectal bleeding A/P 1. Critical : 0.37 cm2 with maximum pressure gradient of 142 mmHg and mean pressure gradient of 81 mmHg. 2. Rectal bleeding: monitor hemoglobin, transfuse blood if hemoglobin drops < 8 , hemogram q6hrs, s/p colonoscopy, internal hemorrhoids and diverticulosis, anticipated DC today If cleared by GI. 3. Hx of multiple falls with prior SDH: last noted via CT in 10/2016. 4. Chronic diastolic CHF 5. 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: History of Present Illness History of Present Illness NO rectal bleeding no fever Vitals Vitals Vital Signs Date Time Temp Pulse Resp B/P Pulse Ox O2 Delivery O2 Flow Rate FiO2 01/17/17 12:35 Nasal Cannula 2.0 01/17/17 12:32 98.2 64 20 97 98.2 01/17/17 11:00 128/52 Physical Exam General: Alert, Oriented X3, Cooperative Heart: Regular rate (not on heart monitor), Normal S1, Normal S2, Other (S4; 5/ 6 systolic murmur to TAM border) Lungs: Clear Abdomen: Soft, No tenderness Extremities: No cyanosis, Other (1+ bilateral LE pitting edema) Skin: No breakdown, No significant lesion Labs LABS Laboratory Tests Test 01/16/17 14:15 White Blood Count 8.8x10^3/uL (4.0-11.0) Red Blood Count 3.66x10^6/uL (3.50-5.40) Hemoglobin 11.8g/dL (12.0-15.5) Hematocrit 35.5% (36.0-47.0) Mean Corpuscular Volume 97fL (79-100) Mean Corpuscular Hemoglobin 32pg (25-35) Mean Corpuscular Hemoglobin Concent 33g/dL (31-37) Red Cell Distribution Width 14.0% (11.5-14.5) Platelet Count 259x10^3/uL (140-400) Assessment and Plan Assessmemt and Plan Problems Medical Problems: (1) Hypoxia Status: Acute (2) Rectal bleed Status: Acute (3) Severe aortic stenosis Status: Acute Problems: Comment Review of Relevant I have reviewed the following items issa (where applicable) has been applied. Labs Laboratory Tests Test 01/16/17 03:55 01/16/17 14:15 White Blood Count 7.3x10^3/uL (4.0-11.0) 8.8x10^3/uL (4.0-11.0) Red Blood Count 3.16x10^6/uL (3.50-5.40) 3.66x10^6/uL (3.50-5.40) Hemoglobin 10.2g/dL (12.0-15.5) 11.8g/dL (12.0-15.5) Hematocrit 30.6% (36.0-47.0) 35.5% (36.0-47.0) Mean Corpuscular Volume 97fL (79-100) 97fL (79-100) Mean Corpuscular Hemoglobin 32pg (25-35) 32pg (25-35) Mean Corpuscular Hemoglobin Concent 33g/dL (31-37) 33g/dL (31-37) Red Cell Distribution Width 13.7% (11.5-14.5) 14.0% (11.5-14.5) Platelet Count 217x10^3/uL (140-400) 259x10^3/uL (140-400) Neutrophils (%) (Auto) 63% (31-73) Lymphocytes (%) (Auto) 24% (24-48) Monocytes (%) (Auto) 8% (0-9) Eosinophils (%) (Auto) 5% (0-3) Basophils (%) (Auto) 1% (0-3) Neutrophils # (Auto) 4.5x10^3uL (1.8-7.7) Lymphocytes # (Auto) 1.7x10^3/uL (1.0-4.8) Monocytes # (Auto) 0.6x10^3/uL (0.0-1.1) Eosinophils # (Auto) 0.4x10^3/uL (0.0-0.7) Basophils # (Auto) 0.1x10^3/uL (0.0-0.2) Sodium Level 140mmol/L (136-145) Potassium Level 4.0mmol/L (3.5-5.1) Chloride Level 104mmol/L (98-107) Carbon Dioxide Level 26mmol/L (21-32) Anion Gap 10 (6-14) Blood Urea Nitrogen 40mg/dL (7-20) Creatinine 1.9mg/dL (0.6-1.0) Estimated GFR (Cockcroft-Gault) 25.1 Glucose Level 92mg/dL (70-99) Calcium Level 9.1mg/dL (8.5-10.1) Laboratory Tests Test 01/16/17 14:15 White Blood Count 8.8x10^3/uL (4.0-11.0) Red Blood Count 3.66x10^6/uL (3.50-5.40) Hemoglobin 11.8g/dL (12.0-15.5) Hematocrit 35.5% (36.0-47.0) Mean Corpuscular Volume 97fL (79-100) Mean Corpuscular Hemoglobin 32pg (25-35) Mean Corpuscular Hemoglobin Concent 33g/dL (31-37) Red Cell Distribution Width 14.0% (11.5-14.5) Platelet Count 259x10^3/uL (140-400) Microbiology 01/15/17 Urine Culture - Preliminary, Resulted 01/15/17 Urine Culture Result 1 (YUE) - Preliminary, Resulted Medications Current Medications Sodium Chloride (Iv Sodium Chloride 0.9% 1000ml Bag) 1,000 ml @ 50 mls/hr Q20H IV Last administered on 01/16/17 15:57; Start 01/15/17 at 16:30 Amlodipine Besylate (Norvasc) 5 mg DAILY PO Last administered on 01/17/17 08: 35; Start 01/15/17 at 17:00 Metoprolol Succinate (Toprol Xl) 100 mg DAILY07 PO Last administered on 06:04; Start 01/15/17 at 17:00 Acetaminophen (Tylenol) 500 mg PRN Q6HRS PRN PO PAIN; Start 01/15/17 at 18:00 Aspirin (Children'S Aspirin) 81 mg HS PO Last administered on 01/16/17 22:55; Start 01/15/17 at 21:00 Calcium Carbonate/ Glycine (Oscal) 500 mg QID PO Last administered on 22:55; Start 01/15/17 at 21:00 Furosemide (Lasix) 40 mg DAILY PO Last administered on 01/17/17 08:35; Start 01/16/17 at 09:00 Levothyroxine Sodium (Synthroid) 88 mcg DAILY06 PO Last administered on 06:04; Start 01/16/17 at 06:00 Acetaminophen (Tylenol) 500 mg HS PO Last administered on 01/16/17 22:55; Start 01/15/17 at 21:00 Clonazepam (Klonopin) 0.25 mg TID PO Last administered on 01/17/17 08:35; Start 01/15/17 at 21:00 Pantoprazole Sodium (Protonix) 40 mg DAILYAC PO Last administered on 01/17/17 08:35; Start 01/16/17 at 07:30 Diphenhydramine HCl (Benadryl) 25 mg HS PO Last administered on 01/16/17 22:55 ; Start 01/15/17 at 21:00 Sodium Cl/Sod Bicarb/Potass Cl/ PEG 4000 ml 4,000 ml 1X ONCE PO Last administered on 01/16/17 17:07; Start 01/16/17 at 16:15; Stop 01/16/17 at 16:16 ; Status DC Lactated Ringer's 1,000 ml @ 75 mls/hr 1X ONCE IV Last administered on 12:38; Start 01/17/17 at 12:45; Stop 01/18/17 at 02:04 Lactated Ringer's 1,000 ml @ 50 mls/hr Q20H IV ; Start 01/17/17 at 13:07; Stop 01/18/17 at 01:06 Propofol (Diprivan) 20 ml @ As Directed STK-MED ONCE IV ; Start 01/17/17 at 13: 13; Stop 01/17/17 at 13:14; Status DC Lidocaine HCl (Lidocaine Pf 2% Vial) 5 ml STK-MED ONCE .ROUTE ; Start 01/17/17 at 13:13; Stop 01/17/17 at 13:14; Status DC Active Scripts Active Furosemide 40 Mg Tablet 40 Mg PO DAILY Reported Norvasc (Amlodipine Besylate) 5 Mg Tablet 1 Tab PO DAILY Acetaminophen-Diphenhyd 500-25 (Acetaminophen/Diphenhydramine) 1 Each Tablet 1- 2 Each PO HS Calcium Carbonate 500 Mg Tablet 500 Mg PO QID Aspirin 81 Mg Tab.chew 1 Tab PO HS Prilosec Otc (Omeprazole Magnesium) 20 Mg Tablet.dr 1 Tab PO DAILY16 Metoprolol Succinate ( Xl ) (Metoprolol Succinate) 100 Mg Tab.er.24h 1 Tab PO DAILY07 Clonazepam 0.25 Mg Tab.rapdis 0.25 Mg PO [id number] Synthroid (Levothyroxine Sodium) 88 Mcg Tablet 1 Tab PO DAILY06 Acetaminophen 500 Mg Tablet 1-2 Tab PO Q4-6HRS PRN Vitals/I & O Vital Sign - Last 24 Hours 01/16/17 01/16/17 01/16/17 01/16/17 15:00 19:10 20:00 23:10 Temp 98.2 97.9 97.5 98.2 97.9 97.5 Pulse 61 68 67 Resp 18 20 18 B/P 107/34 149/69 148/66 Pulse Ox 95 96 94 O2 Delivery Room Air Room Air Room Air Room Air 01/17/17 01/17/17 01/17/17 01/17/17 02:56 06:04 07:00 08:13 Temp 98.0 97.7 98.0 97.7 Pulse 72 74 67 Resp 18 B/P 110/53 124/47 113/59 Pulse Ox 96 100 O2 Delivery Room Air Room Air Nasal Cannula O2 Flow Rate 2.0 01/17/17 01/17/17 01/17/17 01/17/17 08:35 11:00 12:32 12:35 Temp 97.9 98.2 97.9 98.2 Pulse 67 65 64 Resp 20 B/P 113/59 128/52 Pulse Ox 95 97 O2 Delivery Room Air Nasal Cannula O2 Flow Rate 2.0 Intake and Output 01/16/17 01/16/17 01/17/17 15:00 23:00 07:00 Intake Total 560 ml 860 ml 4000 ml Balance 560 ml 860 ml 4000 ml RAYNA MCLEOD MD Jan 17, 2017 13:46
--- NOTE | 2017-01-17 13:56 | PDOC4 ---
Operative Note Operative Note Colonoscopy Meds propofol per anesthesia Pre-op dx acute blood loss anemia/hematochezia Post-op dx internal hemorrhoids galaviz diverticulosis Imp Rectal bleed- likely diverticular in origin Plan advance diet serial cbcs bleeding scan if hg continues to drop DEIDRA WAN MD Jan 17, 2017 13:55
[2017-01-17 15:00] VITALS: BP 139/63
[2017-01-17 15:12] LABS: HEMATOCRIT 33.3 % (36.0-47.0); HEMOGLOBIN 11.5 g/dL (12.0-15.5); RED BLOOD COUNT 3.52 x10^6/uL (3.50-5.40); RED CELL DISTRIBUTION WIDTH 13.9 % (11.5-14.5); WHITE BLOOD COUNT 6.7 x10^3/uL (4.0-11.0)
[2017-01-17] MEDS: IV NORMAL SALINE 1000ML BAG 1,000 ML IV SCH (16:49)
--- NOTE | 2017-01-17 23:58 | DS ---
DATE OF DISCHARGE: 01/17/2017 DISCHARGE DIAGNOSES: 1. Rectal bleeding, likely due to internal hemorrhoids and diverticulosis. Hemoglobin is stable around 11.5. Status post colonoscopy by Dr. Kang. 2. Critical aortic stenosis 0.2 cm. The maximum pressure gradient 142 mmHg. Mean pressure gradient 81 mmHg. The patient has a workup done at and followup has been scheduled by patient. 3. History of multiple falls with prior ____, last one noted ____ in 10/2016. 4. Chronic diastolic heart failure. 5. Hypothyroidism. 6. Chronic kidney disease 3-4. BRIEF HOSPITAL COURSE: An 86-year-old female patient admitted to the hospital for rectal bleeding by Dr. Browning in 01/15/2017. The patient has been admitted to the hospital for IV Protonix and a Gastroenterology consultation. Hemoglobin checks showed no acute drop in the hemoglobin. However, due to her age and aortic stenosis, the patient has been scheduled for colonoscopy by Dr. Kang. Colonoscopy did not show any acute findings other than internal hemorrhoids and diverticulosis. Today, she is hemodynamically stable. No active bleeding noted. Deemed stable enough to go to home and to follow up with the primary care doctor and personnel coordinator as scheduled. DISCHARGE EXAMINATION: Please see my progress note. DISCHARGE CONDITION: Stable. MEDICATIONS: Reviewed, reconciled. Please see MRAD. PROGNOSIS: Good. Total time spent for discharge is 31 minutes for patient education, counseling and coordination of care. RAYNA MCLEOD MD DR: ARON/roxy JOB#: [id number] / [id number]
== END 2017-01-17 18:13 | disposition home or self-care (01) | DRG 393 ==
LOC: ER 11:03 → 6 SOUTH 12:53
PROVIDERS: ADMIT Internal Medicine; ATTEND Internal Medicine
PROC: 0DJD8ZZ Inspection of Lower Intestinal Tract, Via Natural or Artificial Opening Endoscopic (ICD-10-PCS; principal; 2017-01-17 13:00)
DX: K64.8 Other hemorrhoids (principal); K57.91 Diverticulosis of intestine, part unspecified, without perforation or abscess with bleeding; I50.32 Chronic diastolic (congestive) heart failure; D62 Acute posthemorrhagic anemia; I35.0 Nonrheumatic aortic (valve) stenosis; E03.9 Hypothyroidism, unspecified; E78.5 Hyperlipidemia, unspecified; I10 Essential (primary) hypertension; F32.9 Major depressive disorder, single episode, unspecified; K21.9 Gastro-esophageal reflux disease without esophagitis; R09.02 Hypoxemia; Z79.82 Long term (current) use of aspirin; Z82.49 Family history of ischemic heart disease and other diseases of the circulatory system; Z90.49 Acquired absence of other specified parts of digestive tract; Z91.81 History of falling; Z95.2 Presence of prosthetic heart valve; Z91.041 Radiographic dye allergy status
CPT/HCPCS: 36415; 80048; 81001; 82274; 85027; 87086; 93005; J2704; J7030; J7120; Q0163; 99285-25

== ENCOUNTER → 2020-12-09 | Outpatient (CLI) | payer MEDICARE, OTHER ==
[2017-09-27 15:00] VITALS: BP 173/61
[~2020-12-09] MED LIST changes: -ACET-1550 PO; +ACET-1797 PO; +AMLO10TA4 PO; +ASPI-630 PO; -ASPI81TA2 PO; +BARIUM SULFATE 40% (APPLE) 148 GM PWD. PO ONE; -CALC500T PO; +CALC500T31 PO; +GABA-585 PO; -LEVO88TA2 PO; +LEVO88TA70 PO; +LOPE-101 PO; +METO-247 PO; -METO100T11 PO; +ONDA4TAB7 PO; +PANT40TA77 PO; +SENN-182 PO; -SENN8.6T3 PO
--- NOTE | 2020-12-09 15:34 | RAD ---
PROCEDURE: DG VIDEO SWALLOW STUDY STUDY DATE: 12/09/2020 CLINICAL INDICATION / HISTORY: Reason: Dysphagia/ 2.2 MIN FLUORO TIME / Spl. Instructions: / History : . TECHNIQUE: Real-time fluoroscopic imaging examination was performed in conjunction with speech therap y. The patient was administered barium labeled thin liquids, pudding, and solid consistency compounds . FLUOROSCOPY TIME: 2.2 minutes. Number of Images: 0 COMPARISON: None FINDINGS: Oral stage showed reduced bolus formation and increased transit time with some oral residue with pureed. Pharyngeal phase showed some residue in the vallecula and piriform sinuses post swallow with delayed swallow initiation. Deep penetration with trace aspiration was observed with thin liqui ds by straw. Transient penetration with thin liquids by cup was also observed. There was also reduced relaxation of the upper esophageal sphincter. IMPRESSION: Dysphagia of the primarily pharyngeal phase. Trace aspiration with thin liquids was obse rved. Please refer to speech pathology notes for complete details and recommendations. Electronically signed by: Magnus Ceja MD (12/09/2020 3:32 PM) [id number]
== END ==
LOC: RAD 12:39
PROVIDERS: ATTEND Family Medicine
DX: T17.908A Unspecified foreign body in respiratory tract, part unspecified causing other injury, initial encounter (principal); R13.10 Dysphagia, unspecified; I13.0 Hypertensive heart and chronic kidney disease with heart failure and stage 1 through stage 4 chronic kidney disease, or unspecified chronic kidney disease; N18.9 Chronic kidney disease, unspecified
CPT/HCPCS: 74230; 92526-GN; 92611-GN

== ENCOUNTER 2021-06-20 23:45 | Inpatient (IN) | payer MEDICARE, OTHER ==
[~2021-06-20] VITALS: Ht 165.1 cm; Wt 62.9 kg
[2021-06-20 11:30] VITALS: BP 156/62
--- NOTE | 2021-06-20 23:00 | NUR ---
The patient, HOLLY CHAMPION V, 89 y/o, F admitted by WANDA HALE MD, was given written information regarding hospital policies, unit procedures and contact persons. Valuables were checked and with her.
[~2021-06-20 23:45] MED LIST changes: -BARIUM SULFATE 40% (APPLE) 148 GM PWD. PO ONE
[2021-06-21 02:49] VITALS: BP 145/50
[2021-06-21 07:15] VITALS: BP 160/63
--- NOTE | 2021-06-21 09:55 | PN ---
DATE: 06/21/2021 SUBJECTIVE: The patient is an 89-year-old female patient, a resident at [facility] who was seen yesterday at the Emergency Room of [facility] with increasing shortness of breath and hypoxia. She was extensively investigated there and was found to have probably pneumonia and acute on chronic diastolic congestive heart failure. She was treated with IV ceftriaxone and Zithromax as well as IV Lasix. Her first set of cardiac enzymes were normal and was transferred for further evaluation to [facility]. When I saw her today, she was resting, slightly propped up in bed, in no apparent distress. She was pleasantly confused, but denied any complaint. In particular, denied any chest pain, shortness of breath, orthopnea or paroxysmal nocturnal dyspnea. Denied any cough, phlegm or hemoptysis. PHYSICAL EXAMINATION: GENERAL: When I examined her, she was somewhat pale, no jaundice, cyanosis. No lymphadenopathy, no thyromegaly, no jugular venous distention. No lower limb edema. VITAL SIGNS: Her heart rate was 81, blood pressure was 160/63, temperature 97.6, respiratory rate was 20 and oxygen saturation was 95% on 5 liters of oxygen. HEAD, EYES, EARS, NOSE, AND THROAT: Normocephalic, atraumatic. NECK: Supple. HEART: Showed normal first and second heart sounds, no gallop or murmur. CHEST: Clear to auscultation. She has bilateral basal crepitation. I could not appreciate any rhonchi. ABDOMEN: Distended, soft, nontender. NEUROLOGIC: She is demented, but without any obvious lateralizing sign. All her cranial nerves intact. She moves extremities without difficulty. The patient claims that she is able to ambulate with a walker. LABORATORY DATA: This morning, still pending at the time of this dictation. PLAN: My plan is to continue with IV ceftriaxone. Continue with oral Zithromax. Continue with IV Lasix. I did consult the Cardiology team. We will contact the [facility] for the list of her medications. ASSESSMENT: 1. Acute on chronic hypoxic respiratory failure, acute on chronic diastolic congestive heart failure, healthcare-associated pneumonia. 2. The patient has multiple other medical problems including hypertension, hyperlipidemia as well as hypothyroidism. SHEY DR: Jennifer TID: [id number]
--- NOTE | 2021-06-21 10:28 | HP ---
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 She is apparently on 2 liters of oxygen at all times, but staff noted that she is hypoxic and attempted to titrate her oxygen to 3 liters as she is hypoxic; however, the nursing staff stated that she does not have any cough, fever or increased peripheral edema. She is demented and does not really give any useful information. She definitely was vaccinated for COVID-19. There was no evidence of any sick contact. She was extensively investigated in the Emergency Room. She has had lab work and imaging studies. Her white cell count was normal at 9000. Her chemistry showed she has slightly elevated serum creatinine and her BNP was high at 1852. Urinalysis essentially unremarkable. Her chest x-ray showed the patient has diffuse interstitial thickening with ill-defined opacities, may represent pulmonary edema or infection. She has small bilateral pleural effusions. Her cardiac enzymes were normal and therefore, the patient was admitted to [facility] with diagnosis of acute hypoxic respiratory failure and acute probably diastolic congestive heart failure. She was treated with steroids, IV antibiotics and furosemide and was transferred to [facility] for further evaluation and treatment. The patient herself is demented and does not give any useful information. PAST MEDICAL HISTORY: Significant for hypertension, critical aortic stenosis, chronic renal insufficiency, anxiety, heart disease, profound dementia, and hypothyroidism. PAST SURGICAL HISTORY: Significant for appendectomy. ALLERGIES: SHE IS ALLERGIC TO IODINATED CONTRAST MEDIA. MEDICATIONS: She is apparently on following medications: She is on atorvastatin calcium 40 mg tablet once a day, hydralazine 25 mg 3 times a day, labetalol 100 mg twice a day, amlodipine 10 mg once a day, aspirin 81 mg once a day, acetaminophen 325 mg, takes 2 tablets at bedtime; Tylenol 2 tablets every 4 hours, clonazepam 0.5 mg 3 times a day, sertraline 25 mg at bedtime, potassium chloride 10 mEq once a day and Colace 100 mg, takes 2 capsules at bedtime. She is on Protonix 40 mg once a day, levothyroxine sodium 88 mcg once a day and melatonin 3 mg at bedtime. FAMILY HISTORY: Noncontributory. SOCIAL HISTORY: She is a resident at [facility]. She is a nonsmoker, does not drink alcohol or use recreational drugs. PHYSICAL EXAMINATION: GENERAL: On arrival to the Emergency Room, there was no pallor, jaundice, cyanosis or thyromegaly. No jugular venous distention. No limb edema. VITAL SIGNS: Her heart rate was 66, blood pressure 133/50, her temperature was 98.8, respiratory rate was 20 and oxygen saturation was 98% on 15% by nonrebreather mask. HEAD, EYES, EARS, NOSE AND THROAT: Normocephalic, atraumatic. NECK: Supple. HEART: Showed normal first and second heart sounds. No gallop or murmur. CHEST: Showed central trachea, equally reduced chest expansion, reduced air entry, vesicular breath sounds with bilateral basal crepitation. I could not appreciate any rhonchi. ABDOMEN: Distended, soft, nontender. NEUROLOGIC: She is demented, but without any obvious lateralizing sign. All her cranial nerves intact. She moves extremities without difficulty. She apparently ambulates with a walker according to her. LABORATORY DATA: Showed a white cell count 9200, hemoglobin 11, hematocrit 34, MCV 95 and platelet count 256,000. Her chemistry showed a serum sodium 140, potassium 4.6, chloride 105, bicarbonate 25, anion gap of 10, BUN 16, creatinine 1.3, estimated GFR was 38 mL per minute, her glucose 125, calcium was 8.9. Total bilirubin, AST, ALT, alkaline phosphatase were normal. Total protein was 6.6, albumin 3.3. Her beta natriuretic peptide was 1852. Her chest x-ray showed the patient has diffuse interstitial thickening with ill-defined opacities, may represent pulmonary edema or infection. She has small bilateral pleural effusions. ASSESSMENT AND PLAN: The patient was treated with IV antibiotic and IV Lasix. Possible acute on chronic diastolic congestive heart failure and healthcare-associated pneumonia. We will obviously contact the [facility] to get her medication list and also consult the pool coordinator. We will continue with IV antibiotic, IV Lasix, do 2 more sets of cardiac enzymes and consult the pool coordinator. ROSA DR: Jennifer TID: [id number]
[2021-06-21 10:30] LABS: HEMOGLOBIN 11.6 g/dL (12.0-15.5); RED BLOOD COUNT 3.74 x10^6/uL (3.50-5.40); RED CELL DISTRIBUTION WIDTH 15.5 % (11.5-14.5); WHITE BLOOD COUNT 5.7 x10^3/uL (4.0-11.0)
[2021-06-21 10:36] LABS: CALCIUM 8.6 mg/dL (8.5-10.1); CREATININE 1.5 mg/dL (0.6-1.0); GFR 32.7; POTASSIUM 4.2 mmol/L (3.5-5.1)
[2021-06-21 10:42] LABS: ALBUMIN/GLOBULIN RATIO 0.8 (1.0-1.7); TOTAL BILIRUBIN 0.4 mg/dL (0.2-1.0); TOTAL PROTEIN 6.7 g/dL (6.4-8.2)
[2021-06-21] MEDS: AZITHROMYCIN 250 MG TABLET. PO SCH (10:49)
[2021-06-21] MEDS: cefTRIAXone IV Push 1 GM VIAL. IVP SCH (10:49)
[2021-06-21] MEDS: FUROSEMIDE 40 MG/4 ML VIAL. IVP SCH (10:50)
[2021-06-21 10:56] VITALS: BP 151/64
--- NOTE | 2021-06-21 11:19 | PDOC2 ---
SO AGUIRRE MOLYBDENUM STEAMER OPERATOR 06/21/21 1118: CARDIAC CONSULT DATE OF CONSULT Date of Consult DATE: 06/21/21 TIME: 11:13 REASON FOR CONSULT Reason for Consult: CHF REFERRING PHYSICIAN Referring Physician: Dr. Abraham SOURCE Source: Chart review, Patient HISTORY OF PRESENT ILLNESS HISTORY OF PRESENT ILLNESS This is an 89yo female who [facility] [place] [facility] secondary to shortness of breath and hypoxia. CXR with possible pulmonary edema vs infection and small bilateral pleural effusions. NT Pro BNP 1852. Patient was transferred to [facility] for further evaluation and treatment. COVID rapid and PCR are negative. Patient is fully vaccinated. Patient reports improvement in breathing s/p IV diuresis. No chest pain, palpitations, dizziness, diaphoresis, or nausea/vomiting. PAST MEDICAL HISTORY Cardiovascular: CAD, CHF, HTN, Hyperlipidemia, Aortic stenosis (s/p TAVR) CENTRAL NERVOUS SYSTEM: Dementia GI: GERD Psych: Anxiety, Depression Musculoskeletal: Osteoarthritis Renal/: Chronic renal insuff Endocrine: Hypothyroidism PAST SURGICAL HISTORY Past Surgical History: Appendectomy, Other (back surgery ) FAMILY HISTORY Family History: Family History Unknown SOCIAL HISTORY Smoke: No ALCOHOL: none Drugs: None [facility]: [facility] CURRENT MEDICATIONS CURRENT MEDICATIONS Current Medications Medications (Trade) Dose Ordered Sig/Deborah Route PRN Reason Start Time Stop Time Status Last Admin Dose Admin Ceftriaxone Sodium (Rocephin) 1 gm Q24H IVP 06/21/21 10:00 06/21/21 10:49 Azithromycin (Zithromax) 250 mg DAILY PO 06/21/21 10:00 06/21/21 10:49 Furosemide (Lasix) 40 mg DAILY IVP 06/21/21 10:00 06/21/21 10:50 ALLERGIES ALLERGIES: Coded Allergies: Iodine and Iodide Containing Produc (Verified Allergy, Intermediate, 01/17/17) ROS Review of System 14 point ROS conducted with pertinent positives noted above in HPI, although limited due to dementia PHYSICAL EXAM General: Alert, Cooperative, No acute distress, Other (alert to person only ) Lungs: Other (diminished bases) Heart: Regular rate (SR) Abdomen: Soft, No tenderness Extremities: Normal pulses, Other (1+ bilateral LE edema ) Neuro: Normal speech, Sensation intact Psych/Mental Status: Mood NL, Other (confused ) MUSCULOSKELETAL: Osteoarthritic changes both hands VITALS/I&O VITALS/I&O: Vital Signs Date Time Temp Pulse Resp B/P (MAP) Pulse Ox O2 Delivery O2 Flow Rate FiO2 06/21/21 10:56 98.0 73 18 151/64 (93) 96 Nasal Cannula 5.0 98.0 I & O 06/20/21 06/20/21 06/21/21 15:00 23:00 07:00 Intake Total 240 ml Balance 240 ml LABS Lab: Laboratory Tests Test 06/21/21 10:09 White Blood Count 5.7 x10^3/uL (4.0-11.0) Red Blood Count 3.74 x10^6/uL (3.50-5.40) Hemoglobin 11.6 g/dL (12.0-15.5) L Hematocrit 35.0 % (36.0-47.0) L Mean Corpuscular Volume 94 fL (79-100) Mean Corpuscular Hemoglobin 31 pg (25-35) Mean Corpuscular Hemoglobin Concent 33 g/dL (31-37) Red Cell Distribution Width 15.5 % (11.5-14.5) H Platelet Count 254 x10^3/uL (140-400) Sodium Level 139 mmol/L (136-145) Potassium Level 4.2 mmol/L (3.5-5.1) Chloride Level 102 mmol/L (98-107) Carbon Dioxide Level 27 mmol/L (21-32) Anion Gap 10 (6-14) Blood Urea Nitrogen 18 mg/dL (7-20) Creatinine 1.5 mg/dL (0.6-1.0) H Estimated GFR (Cockcroft-Gault) 32.7 BUN/Creatinine Ratio 12 (6-20) Glucose Level 150 mg/dL (70-99) H Calcium Level 8.6 mg/dL (8.5-10.1) Total Bilirubin 0.4 mg/dL (0.2-1.0) Aspartate Amino Transferase (AST) 14 U/L (15-37) L Alanine Aminotransferase (ALT) 18 U/L (14-59) Alkaline Phosphatase 94 U/L (46-116) Troponin I Quantitative < 0.017 ng/mL (0.000-0.055) Total Protein 6.7 g/dL (6.4-8.2) Albumin 3.0 g/dL (3.4-5.0) L Albumin/Globulin Ratio 0.8 (1.0-1.7) L Laboratory Tests 06/21/21 10:09 Laboratory Tests 06/21/21 10:09 ECHOCARDIOGRAM ECHOCARDIOGRAM <Conclusion> Left ventricle systolic function is normal. The Ejection Fraction is 55-60%. There is normal LV segmental wall motion. Calculated aortic valve area is 0.37 cm2 with maximum pressure gradient of 142 mmHg and mean pressure gradient of 81 mmHg. Doppler and color-flow analysis revealed critical aortic stenosis. Doppler and Color Flow revealed moderate tricuspid regurgitation. There is moderate-severe pulmonary hypertension. The PA pressure was estimated at 70 mmHg. DATE: 12/04/16 [facility] HEART CATH HEART CATH [facility] at [facility] CARDIAC CATHETERIZATION REPORT DATE: 12/29/2016 FINDINGS: Selective left and right coronary cineangiograms. The left coronary artery was visualized with a TIG catheter. The left main was free of any high-grade focal disease. There was some mild plaquing distally. The LAD was a type 2 configuration which wrapped around and supplied a portion of the inferior apex. It gave rise to several smaller diagonal branches proximally with a large diagonal branch arising from the mid segment. Just beyond this, the LAD did have a 50% eccentric lesion. Otherwise, the LAD and its diagonal branches were all free of any high-grade focal obstruction. The circumflex was visualized and gave rise to a single continuing obtuse marginal. The proximal aspect of the circumflex had a 20% irregularity with no other high-grade focal disease. The jamul right coronary was visualized with the TIG catheter as well. There was a 30% diffuse lesion throughout the midportion. Otherwise the right coronary and its distal branches did not demonstrate any angiographically significant obstruction. ASSESSMENT: Moderate mid LAD stenosis 50%. PLAN: Continue workup for possible transcatheter aortic valve replacement and optimize medical management. ASSESSMENT/PLAN ASSESSMENT/PLAN 1. Acute on chronic respiratory failure secondary to CHF 2. Acute on chronic diastolic CHF; follows with [facility] cardiology 3. CAD, non-obstructive per cath 2017 as note above 4. 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 Hypertension; labile 6. Hyperlipidemia 7. Hypothyroidism; on levothyroxine 8. CKD; Cr stable 9. Dementia Recommendations Diuresis with monitoring of renal function Secondary prevention Resume home antiHTN therapy Obtain cardiac records from [facility] Will obtain echo to assess LV systolic function, aortic valve if none recently. OCTAVIA WRAY MD 06/21/21 1552: CARDIAC CONSULT ASSESSMENT/PLAN ASSESSMENT/PLAN Pt. seen and examined. Agree with above DIAMOND SELECTOR note. Supportive care. SO AGUIRRE APRN Jun 21, 2021 11:18 OCTAVIA WRAY MD Jun 21, 2021 15:52
--- NOTE | 2021-06-21 13:31 | NUR ---
SW following. Discussed with RN, pt from [facility], 5L (uses 2L at home), cardiac diet. RN advised no SW needs at this time. SW will continue to follow.
[2021-06-21 14:48] VITALS: BP 146/83
[2021-06-21] MEDS ORDERED: DOCUSATE SODIUM 100 MG CAPSULE. PO PRN (16:30)
[2021-06-21] MEDS ORDERED: POLYETHYLENE GLYCOL 3350 17 GM PACKET. PO PRN (16:30)
[2021-06-21 19:00] VITALS: BP 161/59
[2021-06-21] MEDS: LACTOBACILLUS RHAMNOSUS GG 1 CAPSULE. PO SCH (22:11)
[2021-06-21] MEDS: HYDROcodone/APAP 5/325MG 1 TAB TABLET PO PRN (22:12)
[2021-06-21] MEDS: SERTRALINE 25 MG TABLET. PO SCH (22:12)
[2021-06-21] MEDS: LABETALOL HCL 200 MG TABLET PO SCH (22:13)
[2021-06-21] MEDS: ASPIRIN CHEWABLE 81 MG TABLET. PO SCH (22:13)
[2021-06-21] MEDS: ATORVASTATIN CALCIUM 40 MG TABLET. PO SCH (22:13)
[2021-06-21 23:00] VITALS: BP 165/73
[2021-06-22 03:12] VITALS: BP 138/53
[2021-06-22 07:00] VITALS: BP 151/61
[2021-06-22 08:20] LABS: CALCIUM 8.3 mg/dL (8.5-10.1); CREATININE 1.3 mg/dL (0.6-1.0); GFR 38.6; POTASSIUM 3.6 mmol/L (3.5-5.1)
[2021-06-22] MEDS: LACTOBACILLUS RHAMNOSUS GG 1 CAPSULE. PO SCH ×2 (09:57→20:32)
[2021-06-22] MEDS: LABETALOL HCL 200 MG TABLET PO SCH ×2 (09:58→20:33)
[2021-06-22] MEDS: AZITHROMYCIN 250 MG TABLET. PO SCH (09:58)
[2021-06-22] MEDS: POTASSIUM CHLORIDE 10 MEQ TABLET.ER. PO SCH (09:58)
[2021-06-22] MEDS: FUROSEMIDE 40 MG/4 ML VIAL. IVP SCH (09:59)
[2021-06-22] MEDS: cefTRIAXone IV Push 1 GM VIAL. IVP SCH (10:03)
[2021-06-22 11:00] VITALS: BP 149/68
--- NOTE | 2021-06-22 11:08 | PN ---
DATE: 06/22/2021 SUBJECTIVE: The patient is resting slightly propped up in bed, in no apparent distress. She denied any chest pain or shortness of breath. Most complaint was about the food that is cold. PHYSICAL EXAMINATION: GENERAL: When I examined her, she looked well and was clearly in no apparent respiratory distress, pale, but no jaundice, cyanosis or thyromegaly. No jugular venous distention. No limb edema. VITAL SIGNS: Her heart rate was 68, blood pressure was 151/61, temperature was 97.6, respiratory rate 20, and oxygen saturation was 94% on 5 liters by nasal cannula. HEAD, EARS, NOSE AND THROAT: Normocephalic, atraumatic. NECK: Supple. HEART: Showed normal first and second heart sounds, no gallop or murmur. CHEST: Clear to auscultation, no crepitation or rhonchi. ABDOMEN: Distended, soft, nontender. NEUROLOGIC: She was demented, but without any obvious lateralizing sign. Her intake and output are incompletely recorded. LABORATORY DATA: This morning showed a serum sodium 139, potassium 3.6, chloride 102, bicarbonate 30, anion gap of 7, BUN 23, creatinine 1.3. Estimated GFR was 38 mL per minute. Her glucose 95, calcium was 8.3. ASSESSMENT: 1. Acute on chronic hypoxic respiratory failure. 2. Acute on chronic diastolic congestive heart failure. 3. Healthcare-associated pneumonia. 4. The patient has multiple other medical problems including: a. Hypertension. b. Hyperlipidemia. c. Hypothyroidism. PLAN: To continue with IV Lasix. Continue with ceftriaxone and Zithromax. Continue with all antihypertensive medication. I will consult physical and occupational therapy and she probably can be discharged back to [facility] tomorrow. ISHMAEL DR: Jennifer TID: [id number]
--- NOTE | 2021-06-22 11:39 | PDOC ---
SO AGUIRRE DIRECTOR OF MEDIA 06/22/21 1139: CARDIO Progress Notes Date and Time Date of Service 06/22/21 Time of Evaluation 1130 Subjective Subjective: No Chest Pain, No Palpitations, Other (breathing improved ) Vitals Vitals Vital Signs Date Time Temp Pulse Resp B/P (MAP) Pulse Ox O2 Delivery O2 Flow Rate FiO2 06/22/21 11:00 97.2 72 20 149/68 (95) 94 Nasal Cannula 97.2 06/21/21 22:42 5.0 Weight Weight [ ] Input and Output Intake and Output Intake and Output 06/22/21 07:00 Intake Total 940 ml Output Total 895 ml Balance 45 ml Intake Oral 940 ml Output Urine Total 895 ml # Voids 3 Laboratory Labs Laboratory Tests Test 06/22/21 07:50 Sodium Level 139 mmol/L (136-145) Potassium Level 3.6 mmol/L (3.5-5.1) Chloride Level 102 mmol/L (98-107) Carbon Dioxide Level 30 mmol/L (21-32) Anion Gap 7 (6-14) Blood Urea Nitrogen 23 mg/dL (7-20) Creatinine 1.3 mg/dL (0.6-1.0) Estimated GFR (Cockcroft-Gault) 38.6 Glucose Level 95 mg/dL (70-99) Calcium Level 8.3 mg/dL (8.5-10.1) Physical Exam HEENT: Neck Supple W Full Motion Chest: Symmetric LUNGS: Clear to Auscultation Heart: RRR Abdomen: Soft N/T Extremities: No Edema Neurology: alert, follow commands, confused, other ([place] ) Assessment Assessment 1. Acute on chronic respiratory failure secondary to CHF 2. Acute on chronic diastolic CHF; follows with [facility] cardiology. improved s/p IV diuresis 3. CAD, non-obstructive per cath 2016 as note above 4. 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 Hypertension; labile 6. Hyperlipidemia 7. Hypothyroidism; on levothyroxine 8. CKD; Cr stable 9. Dementia Recommendations Continue mild diuresis with monitoring of renal function Secondary prevention Resume home antiHTN therapy No OSH records obtained Will obtain echo to assess LV systolic function, aortic valve Supportive care Justicifation of Admission Dx: Justifications for Admission: Justification of Admission Dx: Yes Comments: Acute respiratory failure Acute on chronic CHF OCTAVIA WRAY MD 06/22/21 1824: CARDIO Progress Notes Plan Plan The patient was seen and interviewed as well as examined at the bedside. The chart was reviewed. The case was discussed. Agree with the plan of care. SO AGUIRRE APRN Jun 22, 2021 11:39 OCTAVIA WRAY MD Jun 22, 2021 18:24
--- NOTE | 2021-06-22 12:45 | NUR ---
SW following. Discussed with RN, pt from [facility], 5L (uses 2L at home), cardiac diet. RN plans to attempt to titrate pt today. COVID-19 negative at [place]. Possible discharge home tomorrow per Dr. Abraham's note. SW will continue to follow.
[2021-06-22 15:00] VITALS: BP 152/55
--- NOTE | 2021-06-22 17:35 | CARD ---
MR#: [id number] Date of Study: 06/22/2021 Ordering Physician: SO AGUIRRE, Referring Physician: SO AGUIRRE, Tech: Tyra Dalcarlotajames, [facility] APPROVED REPORT EXAM: Two-dimensional and M-mode echocardiogram with Doppler and color Doppler. Other Information Quality : AverageHR: 71bpm INDICATION Aortic Valve Disease Congestive Heart Failure Surgery/Intervention Status/Post Aortic Valve Replacement: Date: 2016 RISK FACTORS Hypertension Hyperlipidemia 2D DIMENSIONS Left Atrium(2D)4.5 (1.6-4.0cm)IVSd1.9 (0.7-1.1cm) Aortic Root(2D)2.4 (2.0-3.7cm)LVDd3.8 (3.9-5.9cm) LVOT Diameter2.0 (1.8-2.4cm)PWd1.4 (0.7-1.1cm) LVDs2.3 (2.5-4.0cm)FS (%) 39.0 % SV43.1 ml Aortic Valve AoV Peak Praveen.151.0cm/sAoV VTI31.7cm AO Peak GR.9.1mmHgLVOT VTI 23.10cm AO Mean GR.4mmHg Mitral Valve MV E Knzacfep769.8cm/sMV E Peak Gr.11mmHg MV DECEL [id number] A Qzeuevyk525.2cm/s MV E Mean Gr.6mmHgE/A Ratio1.2 TDI Lateral E' P. V5.34cm/sMedial E' P. V6.05cm/s E/Lateral E'29.6E/Medial E'26.1 Tricuspid Valve TR P. [id number]/sRAP [id number] TR Peak Gr.94lqLzEGCM50phCx LEFT VENTRICLE The left ventricle is normal size. There is mild concentric left ventricular hypertrophy. The left ve ntricular systolic function is normal and the ejection fraction is within normal range. The Ejection Fraction is 50-55%. Septal motion consistent with post-operative state. Transmitral Doppler flow luis dell is Grade II-pseudonormal filling dynamics. RIGHT VENTRICLE The right ventricle is mildly dilated. The right ventricle is mildly hypertrophied. The right ventric ular systolic function is normal. ATRIA The left atrium is mildly dilated. The right atrium is mildly dilated. The interatrial septum is inta ct with no evidence for an atrial septal defect or patent foramen ovale as noted on 2-D or Doppler im aging. AORTIC VALVE Doppler and Color Flow revealed trace aortic regurgitation. Calculated aortic valve area is 2.2 cm2 w ith maximum pressure gradient of 10 mmHg and mean pressure gradient of 4 mmHg. No significant aortic stenosis. The prosthetic aortic valve appears well-seated. MITRAL VALVE The mitral valve is calcified and displays decreased opening. There is no evidence of mitral valve pr olapse. There is mild to moderate mitral valve stenosis with a mean gradient of 5.08 mmHg. Doppler an d Color-flow revealed trace mitral regurgitation. TRICUSPID VALVE The tricuspid valve is normal in structure and function. Doppler and Color Flow revealed mild tricusp id regurgitation with an estimated PAP of >65 mmHg. There is no tricuspid valve stenosis. PULMONIC VALVE The pulmonary valve is normal in structure and function. Doppler and Color Flow revealed trace pulmon ic valvular regurgitation. GREAT VESSELS The aortic root is normal in size. The ascending aorta is normal in size. The IVC is normal in size a nd collapses >50% with inspiration. PERICARDIAL EFFUSION There is no evidence of significant pericardial effusion. Critical Notification Critical Value: No <Conclusion> The left ventricle is normal size. The left ventricular systolic function is normal and the ejection fraction is within normal range. The Ejection Fraction is 50-55%. Septal motion consistent with post-operative state. There is mild concentric left ventricular hypertrophy. The prosthetic aortic valve appears well-seated. Doppler and Color Flow revealed trace aortic regurgitation. Calculated aortic valve area is 2.2 cm2 with maximum pressure gradient of 10 mmHg and mean pressure g radient of 4 mmHg. No significant aortic stenosis. There is mild to moderate mitral valve stenosis with a mean gradient of 5.08 mmHg. Doppler and Color-flow revealed trace mitral regurgitation. Doppler and Color Flow revealed mild tricuspid regurgitation with an estimated PAP of >65 mmHg. Signed by : Alex Hurley MD Electronically Approved : 06/22/2021 17:34:59
[2021-06-22 19:00] VITALS: BP 120/48
[2021-06-22] MEDS: ASPIRIN CHEWABLE 81 MG TABLET. PO SCH (20:33)
[2021-06-22] MEDS: SERTRALINE 25 MG TABLET. PO SCH (20:33)
[2021-06-22] MEDS: ATORVASTATIN CALCIUM 40 MG TABLET. PO SCH (20:33)
[2021-06-22] MEDS: HYDROcodone/APAP 5/325MG 1 TAB TABLET PO PRN (20:33)
[2021-06-22 23:12] VITALS: BP 138/57
[2021-06-23] VITALS (11 sets, daily range): BP systolic 113–182; BP diastolic 51–90
[2021-06-23 07:39] LABS: BASO # 0.1 x10^3/uL (0.0-0.2); BASO % 1 % (0-3); EOS # 0.3 x10^3/uL (0.0-0.7); EOS % 3 % (0-3); HEMATOCRIT 37.8 % (36.0-47.0); HEMOGLOBIN 12.7 g/dL (12.0-15.5); LYMPH # 0.9 x10^3/uL (1.0-4.8); LYMPH % 8 % (24-48); MEAN CORPUSCULAR HEMOGLOBIN 31 pg (25-35); MEAN CORPUSCULAR HGB CONC 34 g/dL (31-37); MEAN CORPUSCULAR VOLUME 93 fL (79-100); MONO # 0.9 x10^3/uL (0.0-1.1); MONO % 8 % (0-9); NEUT # 8.7 x10^3/uL (1.8-7.7); NEUT % 80 % (31-73); PLATELET COUNT 257 x10^3/uL (140-400); RED BLOOD COUNT 4.08 x10^6/uL (3.50-5.40); RED CELL DISTRIBUTION WIDTH 15.6 % (11.5-14.5); WHITE BLOOD COUNT 10.9 x10^3/uL (4.0-11.0)
[2021-06-23 08:05] LABS: ALBUMIN 3.2 g/dL (3.4-5.0); ALBUMIN/GLOBULIN RATIO 0.8 (1.0-1.7); CALCIUM 8.4 mg/dL (8.5-10.1); CREATININE 1.3 mg/dL (0.6-1.0); GFR 38.6; POTASSIUM 3.6 mmol/L (3.5-5.1); TOTAL BILIRUBIN 0.5 mg/dL (0.2-1.0)
--- NOTE | 2021-06-23 08:43 | EKG ---
[facility] [address] [place] [address] Test Date: 2021-06-23 Test Time: 08:45:04 Pat Name: HOLLY CHAMPION Department: Room: 578 1 Gender: F Terrazzo Polisher: ELIZABETH : 1930 Requested By: NEEMA WONG Order Number: [id number] Reading MD: Measurements Intervals Tutor Key Rate: 135 P: DE: QRS: 13 QRSD: 90 T: 132 QT: 310 QTc: 470 Interpretive Statements IRREGULAR RHYTHM, NO P-WAVE FOUND LVH WITH REPOLARIZATION ABNORMALITY ABNORMAL ECG RI6.01 Compared to ECG 01/15/2017 12:21:44 Sinus rhythm no longer present
[2021-06-23] MEDS ORDERED: METOPROLOL IV PUSH 5 MG/5 ML VIAL. IVP ONE (09:00)
[2021-06-23] MEDS: LACTOBACILLUS RHAMNOSUS GG 1 CAPSULE. PO SCH ×2 (10:08→21:58)
[2021-06-23] MEDS: AZITHROMYCIN 250 MG TABLET. PO SCH (10:08)
[2021-06-23] MEDS: POTASSIUM CHLORIDE 10 MEQ TABLET.ER. PO SCH (10:09)
[2021-06-23] MEDS: LABETALOL HCL 200 MG TABLET PO SCH ×2 (10:09→21:59)
[2021-06-23] MEDS: cefTRIAXone IV Push 1 GM VIAL. IVP SCH (10:10)
[2021-06-23] MEDS: FUROSEMIDE 40 MG/4 ML VIAL. IVP SCH (10:10)
--- NOTE | 2021-06-23 10:13 | PDOC ---
NEEMA WONG SAFE TECHNICIAN 06/23/21 1013: CARDIO Progress Notes Date and Time Date of Service 06/23/2021 Time of Evaluation 0950 Subjective Subjective: No Chest Pain, No shortness of breath, No Palpitations, Other (wants to get out of bed) Vitals Vitals Vital Signs Date Time Temp Pulse Resp B/P (MAP) Pulse Ox O2 Delivery O2 Flow Rate FiO2 06/23/21 08:52 125 139/61 06/23/21 07:00 98.4 20 94 Nasal Cannula 3.0 98.4 Weight Weight [ ] Input and Output Intake and Output Intake and Output 06/23/21 07:00 Intake Total 720 ml Balance 720 ml Intake Oral 720 ml # Voids 2 Laboratory Labs Laboratory Tests Test 06/23/21 07:30 White Blood Count 10.9 x10^3/uL (4.0-11.0) Red Blood Count 4.08 x10^6/uL (3.50-5.40) Hemoglobin 12.7 g/dL (12.0-15.5) Hematocrit 37.8 % (36.0-47.0) Mean Corpuscular Volume 93 fL (79-100) Mean Corpuscular Hemoglobin 31 pg (25-35) Mean Corpuscular Hemoglobin Concent 34 g/dL (31-37) Red Cell Distribution Width 15.6 % (11.5-14.5) Platelet Count 257 x10^3/uL (140-400) Neutrophils (%) (Auto) 80 % (31-73) Lymphocytes (%) (Auto) 8 % (24-48) Monocytes (%) (Auto) 8 % (0-9) Eosinophils (%) (Auto) 3 % (0-3) Basophils (%) (Auto) 1 % (0-3) Neutrophils # (Auto) 8.7 x10^3/uL (1.8-7.7) Lymphocytes # (Auto) 0.9 x10^3/uL (1.0-4.8) Monocytes # (Auto) 0.9 x10^3/uL (0.0-1.1) Eosinophils # (Auto) 0.3 x10^3/uL (0.0-0.7) Basophils # (Auto) 0.1 x10^3/uL (0.0-0.2) Sodium Level 138 mmol/L (136-145) Potassium Level 3.6 mmol/L (3.5-5.1) Chloride Level 99 mmol/L (98-107) Carbon Dioxide Level 31 mmol/L (21-32) Anion Gap 8 (6-14) Blood Urea Nitrogen 23 mg/dL (7-20) Creatinine 1.3 mg/dL (0.6-1.0) Estimated GFR (Cockcroft-Gault) 38.6 BUN/Creatinine Ratio 18 (6-20) Glucose Level 108 mg/dL (70-99) Calcium Level 8.4 mg/dL (8.5-10.1) Total Bilirubin 0.5 mg/dL (0.2-1.0) Aspartate Amino Transf (AST/SGOT) 14 U/L (15-37) Alanine Aminotransferase (ALT/SGPT) 14 U/L (14-59) Alkaline Phosphatase 85 U/L (46-116) Total Protein 7.0 g/dL (6.4-8.2) Albumin 3.2 g/dL (3.4-5.0) Albumin/Globulin Ratio 0.8 (1.0-1.7) Physical Exam HEENT: Neck Supple W Full Motion Chest: Symmetric LUNGS: Clear to Auscultation Heart: irregularly irregular (AFIB RVR) Abdomen: Soft N/T Extremities: No Edema Neurology: alert, follow commands, confused, other ([place] ) Assessment Assessment 1. Acute on chronic respiratory failure secondary to CHF, compensated 2. Acute on chronic diastolic CHF; follows with [facility] cardiology. compensated. EF nml 3. CAD, non-obstructive per cath 2016 as note above 4. 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 Hypertension; labile 6. Hyperlipidemia 7. Hypothyroidism; on levothyroxine 8. CKD; Cr stable 9. Dementia 10. Mild to moderate mitral valve stenosis 11. AFIB RVR: new onset Recommendations 1. Continue labetolol. Change norvasc to cardizem. x1 Digoxin. Consider MCOT. ASA for now for stroke prevention. 2. Lasix therapy 3. Secondary prevention 4. No OSH records obtained 5. Supportive care Justicifation of Admission Dx: Justifications for Admission: Justification of Admission Dx: Yes OCTAVIA WRAY MD 06/23/21 1628: CARDIO Progress Notes Plan Plan The patient was seen and interviewed as well as examined at the bedside. The chart was reviewed. The case was discussed. Agree with the plan of care. NEEMA WONG APRN Jun 23, 2021 10:13 OCTAVIA WRAY MD Jun 23, 2021 16:28
[2021-06-23] MEDS ORDERED: DIGOXIN IV 500 MCG/2 ML AMPUL. IV ONE ×2 (10:30→16:00)
--- NOTE | 2021-06-23 10:57 | PN ---
DATE: 06/23/2021 SUBJECTIVE: The patient is resting, slightly propped up in bed, in no apparent distress. She apparently went into atrial fibrillation with rapid ventricular response for which she was treated with metoprolol and digoxin. PHYSICAL EXAMINATION: GENERAL: When I examined her this morning, she was pale, somewhat restless and agitated. There is no jaundice or cyanosis. No lymphadenopathy. No thyromegaly. No jugular venous distention. No limb edema. VITAL SIGNS: Her heart rate was 125, blood pressure was 113/51, temperature was 98.4, respiratory rate 20 and oxygen saturation was 94% on 3 liters of oxygen. HEAD, EYES, EARS, NOSE AND THROAT: Normocephalic, atraumatic. NECK: Supple. HEART: Normal first and second heart sounds. No gallop, rub or murmur. CHEST: Showed central trachea equal, bilateral chest expansion air entry, vesicular breath sounds. No crepitation or rhonchi. ABDOMEN: Scaphoid, soft, nontender. NEUROLOGIC: She is demented without any obvious lateralizing sign. Her intake over the last 24 hours was 940, output was 900. LABORATORY DATA: As of this morning, her white cell count was 10,900, hemoglobin 12.7, hematocrit 38, MCV 93 and platelet count 257,000. Her serum sodium was 138, potassium 3.6, chloride 99, bicarbonate 31, anion gap of 8, BUN 23, creatinine 1.3. Estimated GFR was 38 mL per minute. Her glucose 108, calcium was 8.4. Total bilirubin, AST, ALT, alkaline phosphatase were normal. Total protein 7, albumin was 3.2. ASSESSMENT: 1. Acute on chronic hypoxic respiratory failure. 2. Acute on chronic diastolic congestive heart failure. 3. Healthcare-associated pneumonia. 4. Hypertension. 5. Hyperlipidemia. 6. Hypothyroidism. 7. Dementia. 8. New-onset atrial fibrillation with rapid ventricular response. 9. Coronary artery disease, nonobstructive. 10. She has severe aortic stenosis, status post transcatheter aortic valve replacement in 2017. 11. Chronic kidney disease. PLAN: Continue with IV antibiotic. Continue with labetalol. I will discontinue her amlodipine, start her on Cardizem. Apparently, she received 1 dose of digoxin. SATURNINO/ROSSY DR: Jennifer TID: [id number]
--- NOTE | 2021-06-23 15:00 | NUR ---
Around 0805 pt's HR was in the 140's. Pt a-fib RVR. This RN at bedside. Pt was resting and fixing her blankets. She denied any chest pain or shortness of breath. This RN tried to get pt to do vagal maneuvers, but due to her dementia and confusion, she was unable to perform. Dr. Porfirio jimenez. ALEJO Corado called back with orders for STAT EKG and metoprolol dose. There was no improvement so a dose of digoxin was given. Pt will be transferred to CVC unit for further medication and monitoring. Nursing supervisor costuming notified. RN will continue to monitor until transfer to CVC floor.
--- NOTE | 2021-06-23 20:05 | NUR ---
pt in bed assessment completed vss poc explained, pt reoriented to surroundings pt confused bed alarm set call light in reach will resume care and continue to monitor pt.
[2021-06-23] MEDS: SERTRALINE 25 MG TABLET. PO SCH (21:58)
[2021-06-23] MEDS: ATORVASTATIN CALCIUM 40 MG TABLET. PO SCH (21:58)
[2021-06-23] MEDS: ASPIRIN CHEWABLE 81 MG TABLET. PO SCH (21:58)
[2021-06-24] VITALS (12 sets, daily range): BP systolic 108–145; BP diastolic 56–72
[2021-06-24 05:09] LABS: CALCIUM 8.6 mg/dL (8.5-10.1); CREATININE 1.5 mg/dL (0.6-1.0); GFR 32.7
[2021-06-24] MEDS: POTASSIUM CHLORIDE 10 MEQ TABLET.ER. PO SCH (08:00)
[2021-06-24] MEDS: LABETALOL HCL 200 MG TABLET PO SCH (09:00)
[2021-06-24] MEDS: AZITHROMYCIN 250 MG TABLET. PO SCH (09:33)
[2021-06-24] MEDS: LACTOBACILLUS RHAMNOSUS GG 1 CAPSULE. PO SCH ×2 (09:33→20:51)
[2021-06-24] MEDS: cefTRIAXone IV Push 1 GM VIAL. IVP SCH (09:34)
--- NOTE | 2021-06-24 09:37 | PN ---
DATE: 06/24/2021 SUBJECTIVE: The patient is resting, slightly propped up in bed, in no apparent distress. She is very confused, wanting scissors to cut her Ziegler catheter as she was found to have retaining urine yesterday and drained about 1100 mL of urine. She went into atrial fibrillation with rapid ventricular response and was started on Cardizem drip and has received multiple injections of digoxin. When I saw her this morning, she looked well and was clearly in no apparent respiratory distress. No pallor, jaundice or cyanosis. No lymphadenopathy, no thyromegaly, no jugular venous distention. No lower limb edema. She is apparently bradycardic this morning and we held her labetalol. Her kidney function also has worsened and therefore, we held her Lasix and potassium. PHYSICAL EXAMINATION: VITAL SIGNS: Her blood pressure was 126/72, temperature 99.4, respiratory rate was 18 and oxygen saturation was 92% on 3 liters of oxygen. HEAD, EYES, EARS, NOSE, AND THROAT: Normocephalic, atraumatic. NECK: Supple. HEART: Showed normal first and second heart sounds. No gallop or murmur. CHEST: Clear to auscultation. No crepitation or rhonchi. ABDOMEN: Scaphoid, soft, nontender. NEUROLOGIC: She is demented without any obvious lateralizing sign. She has an indwelling Ziegler catheter. Her intake and output are incompletely recorded. LABORATORY DATA: This morning showed serum sodium 138, potassium 4, chloride 99, bicarbonate 27, anion gap of 12, BUN 32, creatinine 1.5, estimated GFR was 32 mL per minute, her glucose 115, calcium was 8.5 and TSH was 3.554. Her white cell count was 10,900, hemoglobin 12, hematocrit 38, MCV 93 and platelet count 257,000. ASSESSMENT: 1. Acute on chronic hypoxic respiratory failure. 2. Acute on chronic diastolic congestive heart failure. 3. Healthcare-associated pneumonia. 4. Acute kidney injury, multifactorial, likely due to over diuresis. 5. Urinary retention, requiring indwelling Ziegler catheter. 6. Hypertension. 7. Hyperlipidemia. 8. Hypothyroidism. 9. Dementia. 10. New onset atrial fibrillation with rapid ventricular response, currently on Cardizem drip. 11. Coronary artery disease that is nonobstructive. 12. She has severe aortic stenosis, status post transcatheter aortic valve replacement. 13. Chronic kidney disease. PLAN: Continue with IV antibiotic. We are holding labetalol, IV Lasix and potassium. SATURNINO/RAYNE DR: Jennifer TID: [id number]
--- NOTE | 2021-06-24 11:15 | PDOC ---
NEEMA WONG STAGE HAND 06/24/21 1115: CARDIO Progress Notes Date and Time Date of Service 06/24/2021 Time of Evaluation 1010 Subjective Subjective: No Chest Pain, No shortness of breath, No Palpitations, Other (wants to cut dickerson catheter with scissor) Vitals Vitals Vital Signs Date Time Temp Pulse Resp B/P (MAP) Pulse Ox O2 Delivery O2 Flow Rate FiO2 06/24/21 10:08 97.7 112 18 112/59 (76) 97 Nasal Cannula 3.0 97.7 Weight Weight [ ] Input and Output Intake and Output Intake and Output 06/24/21 07:00 Intake Total 360 ml Output Total 1100 ml Balance -740 ml Intake Oral 360 ml Output Urine Total 1100 ml Laboratory Labs Laboratory Tests Test 06/24/21 04:15 Sodium Level 138 mmol/L (136-145) Potassium Level 4.0 mmol/L (3.5-5.1) Chloride Level 99 mmol/L (98-107) Carbon Dioxide Level 27 mmol/L (21-32) Anion Gap 12 (6-14) Blood Urea Nitrogen 32 mg/dL (7-20) Creatinine 1.5 mg/dL (0.6-1.0) Estimated GFR (Cockcroft-Gault) 32.7 Glucose Level 115 mg/dL (70-99) Calcium Level 8.6 mg/dL (8.5-10.1) Thyroid Stimulating Hormone (TSH) 3.554 uIU/mL (0.358-3.74) Physical Exam HEENT: Neck Supple W Full Motion Chest: Symmetric LUNGS: Clear to Auscultation Heart: irregularly irregular (AFIB) Abdomen: Soft N/T Extremities: No Edema Neurology: alert, follow commands, confused, other (HOOPA ) Assessment Assessment 1. Acute on chronic respiratory failure secondary to CHF, compensated 2. Acute on chronic diastolic CHF; follows with [facility] cardiology. compensated. EF nml 3. CAD, non-obstructive per cath 2016 as note above 4. 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 Hypertension; controlled 6. Hyperlipidemia 7. Hypothyroidism; on levothyroxine 8. CKD; Cr stable 9. Dementia 10. Mild to moderate mitral valve stenosis 11. AFIB RVR: new onset, HR up again to 110s 12. Urinary retention Recommendations 1. Noted periods of bradycardia in the 40s but no pauses.overnight. She received 2 dose of digoxin yesterday and also on routine labetolol with cardizem drip. She appears to have responded well with cardizem drip and will titrate up. DC labetolol. Will adjust BP meds per trend and monitor rhythm 2. MCOT. Her [id number] score is high but high risk for falls and injury. RN discussed Lotus Kenny (DPOA) and RN taking care of her at [facility] re anticoagulation, risks and benefits and would prefer anticaogulation than ASA. Would not start eliquis low dose until dickerson if discontinued due to risk of injury. 2. Lasix therapy 3. Secondary prevention 4. No OSH records obtained 5. Supportive care Justicifation of Admission Dx: Justifications for Admission: Justification of Admission Dx: Yes OCTAVIA WRAY MD 06/26/21 1318: CARDIO Progress Notes Plan Plan Late entry for 06/24/21 Pt. seen and examined. Agree with above RUNNER WORKER note. Supportive care. NEEMA WONG APRN Jun 24, 2021 11:15 OCTAVIA WRAY MD Jun 26, 2021 13:18
[2021-06-24] MEDS: SERTRALINE 25 MG TABLET. PO SCH (20:51)
[2021-06-24] MEDS: APIXABAN 2.5 MG TABLET. PO SCH (20:51)
[2021-06-24] MEDS: ATORVASTATIN CALCIUM 40 MG TABLET. PO SCH (20:51)
[2021-06-24] MEDS: ASPIRIN CHEWABLE 81 MG TABLET. PO SCH (20:51)
[2021-06-25 03:35] VITALS: BP 152/67
[2021-06-25 04:44] LABS: HEMATOCRIT 36.7 % (36.0-47.0); HEMOGLOBIN 12.1 g/dL (12.0-15.5); RED BLOOD COUNT 3.92 x10^6/uL (3.50-5.40); RED CELL DISTRIBUTION WIDTH 15.3 % (11.5-14.5); WHITE BLOOD COUNT 13.3 x10^3/uL (4.0-11.0)
[2021-06-25 05:13] LABS: CALCIUM 8.6 mg/dL (8.5-10.1); CREATININE 1.8 mg/dL (0.6-1.0); GFR 26.5; POTASSIUM 3.5 mmol/L (3.5-5.1)
[2021-06-25 07:00] VITALS: BP 157/67
[2021-06-25] MEDS: POTASSIUM CHLORIDE 10 MEQ TABLET.ER. PO SCH (09:37)
[2021-06-25] MEDS: cefTRIAXone IV Push 1 GM VIAL. IVP SCH (09:37)
[2021-06-25] MEDS: AZITHROMYCIN 250 MG TABLET. PO SCH (09:37)
[2021-06-25] MEDS: LACTOBACILLUS RHAMNOSUS GG 1 CAPSULE. PO SCH ×2 (09:37→21:06)
[2021-06-25] MEDS: APIXABAN 2.5 MG TABLET. PO SCH ×2 (09:37→21:05)
[2021-06-25] MEDS ORDERED: IV NORMAL SALINE 500ML BAG 500 ML IV ONE (10:00)
[2021-06-25 11:00] VITALS: BP 147/67
--- NOTE | 2021-06-25 14:26 | PDOC2 ---
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 She is on 2 liters of oxygen @ home at all times, but staff noted that she is hypoxic and attempted to titrate her oxygen to 3 liters as she is hypoxic; [place] [facility] [place] No cough, fever . No N/V/D. No Abdominal pain, No urinary complaints She is vaccinated for COVID 19 She has dementia and very hard of hearing Unable to obtain History from her Nephrology consulted today for HARRISON Past Medical History Cardiovascular: CAD, CHF, HTN, Hyperlipidemia, Aortic stenosis (s/p TAVR) Pulmonary: Bronchitis CENTRAL NERVOUS SYSTEM: Dementia GI: GERD Psych: Anxiety, Depression Musculoskeletal: Osteoarthritis Rheumatologic: No pertinent hx Infectious disease: No pertinent hx Renal/: Chronic renal insuff Endocrine: Hypothyroidism Past Surgical History Past Surgical History: Appendectomy, Other (back surgery ) Family History Family History: Family History Unknown Social History No ALCOHOL: none Drugs: None Lives: Custodial ([facility] ) Current Medications Current Medications Current Medications Ceftriaxone Sodium (Rocephin) 1 gm Q24H IVP Last administered on 06/25/21at 09:37; Start 06/21/21 at 10:00 Azithromycin (Zithromax) 250 mg DAILY PO Last administered on 06/25/21at 09:37; Start 06/21/21 at 10:00; Stop 06/25/21 at 09:01; Status DC Furosemide (Lasix) 40 mg DAILY IVP Last administered on 06/23/21at 10:10; Start 06/21/21 at 10:00; Stop 06/24/21 at 09:07; Status DC Lactobacillus Rhamnosus (Culturelle) 1 cap BID PO Last administered on 06/25/21at 09:37; Start 06/21/21 at 21:00 Amlodipine Besylate (Norvasc) 10 mg DAILY PO Last administered on 06/23/21at 10:08; Start 06/22/21 at 09:00; Stop 06/23/21 at 10:48; Status DC Aspirin (Aspirin Chewable) 81 mg HS PO Last administered on 06/24/21at 20:51; Start 06/21/21 at 21:00 Atorvastatin Calcium (Lipitor) 40 mg QHS PO Last administered on 06/24/21at 20:51; Start 06/21/21 at 21:00 Potassium Chloride (Klor-Con) 10 meq DAILYWBKFT PO Last administered on 06/25/21at 09:37; Start 06/22/21 at 08:00 Ergocalciferol (Vitamin D2) 50,000 unit WEEKLY PO ; Start 06/28/21 at 09:00 Sertraline HCl (Zoloft) 25 mg QHS PO Last administered on 06/24/21at 20:51; Start 06/21/21 at 21:00 Docusate Sodium (Colace) 100 mg PRN DAILY PRN PO HARD STOOLS Last administered on 06/22/21at 20:33; Start 06/21/21 at 16:30 Polyethylene Glycol (miraLAX PACKET) 17 gm PRN DAILY PRN PO CONSTIPATION; Start 06/21/21 at 16:30 Labetalol HCl (Trandate) 200 mg BID PO Last administered on 06/23/21at 21:59; Start 06/21/21 at 21:00; Stop 06/24/21 at 19:38; Status DC Acetaminophen/ Hydrocodone Bitart (Lortab 5/325) 1 tab PRN Q6HRS PRN PO MODERATE TO SEVERE PAIN Last administered on 06/22/21at 20:33; Start 06/21/21 at 16:30 Metoprolol Tartrate (Lopressor Vial) 5 mg 1X ONCE IVP Last administered on 06/23/21at 08:52; Start 06/23/21 at 09:00; Stop 06/23/21 at 09:01; Status DC Digoxin (Lanoxin) 500 mcg 1X ONCE IV Last administered on 06/23/21at 10:19; Start 06/23/21 at 10:30; Stop 06/23/21 at 10:31; Status DC Diltiazem HCl (Cardizem 24hr Cd) 120 mg DAILY PO ; Start 06/24/21 at 09:00; Stop 06/23/21 at 12:02; Status DC Diltiazem HCl 125 mg/Sodium Chloride 125 ml @ 5 mls/hr CONT PRN IV SEE I/O RECORD Last administered on 06/24/21at 06:46; Start 06/23/21 at 12:00 Digoxin (Lanoxin) 250 mcg 1X ONCE IV Last administered on 06/23/21at 16:56; Start 06/23/21 at 16:00; Stop 06/23/21 at 16:01; Status DC Diltiazem HCl (Cardizem 24hr Cd) 120 mg DAILY PO Last administered on 06/25/21at 09:37; Start 06/24/21 at 17:00 Apixaban (Eliquis) 2.5 mg BID PO Last administered on 06/25/21at 09:37; Start 06/24/21 at 21:00 Sodium Chloride 500 ml @ 500 mls/hr 1X ONCE IV Last administered on 06/25/21at 10:48; Start 06/25/21 at 10:00; Stop 06/25/21 at 10:59; Status DC Active Scripts Active Reported Senna (Sennosides) 8.6 Mg Tablet 8.6 Mg PO PRN DAILY Furosemide 20 Mg Tablet 1 Tab PO DAILY Imodium A-D (Loperamide HCl) 2 Mg Capsule 2 Mg PO Zofran (Ondansetron Hcl) 4 Mg Tablet 1 Tab PO Q8HRS Gabapentin (Gabapentin) 100 Mg Capsule 100 Mg PO HS Tylenol (Acetaminophen) 325 Mg Tablet 1-2 Tab PO PRN Q6HRS Pantoprazole Sodium (Pantoprazole Sodium) 40 Mg Tablet.dr 1 Tab PO DAILY Norvasc (Amlodipine Besylate) 10 Mg Tablet 10 Mg PO DAILY Calcium Carbonate 500 Mg Tablet 500 Mg PO QID Aspirin 81 Mg Tab.chew 1 Tab PO HS Prilosec Otc (Omeprazole Magnesium) 20 Mg Tablet.dr 1 Tab PO DAILY16 Metoprolol Succinate ( Xl ) (Metoprolol Succinate) 100 Mg Tab.er.24h 1 Tab PO DAILY07 Clonazepam 0.25 Mg Tab.rapdis 0.5 Mg PO [id number] Synthroid (Levothyroxine Sodium) 88 Mcg Tablet 1 Tab PO DAILY06 Allergies Allergies: Coded Allergies: Iodine and Iodide Containing Produc (Verified Allergy, Intermediate, 01/17/17) ROS Review of System As per HPI, Unable to obtain Hx from pt 2/2 Dementia and very hard of hearing Physical Exam Physical Exam General: No acute distress, alert to person only , sitting in recliner HHEN OM moist, no icterus , very hard of hearing Neck supple Lungs: diminished bases, Non labored Heart: Regular rate Abdomen: Soft, No tenderness Extremities: Trace to bilateral LE edema Neuro: Normal speech, Sensation intact Psych/Mental Status: Dementia No Ziegler Vital Signs Vital Signs Date Time Temp Pulse Resp B/P (MAP) Pulse Ox O2 Delivery O2 Flow Rate FiO2 06/25/21 11:00 98.6 83 16 147/67 (93) 96 Nasal Cannula 2.5 98.6 Assessment & Plan HARRISON on CKD- Cardiorenal, UA unremarkable at [facility] Monitor labs , supportive care, avoid nephrotoxins. Diuresis per cardiology Acute on chronic respiratory failure secondary to CHF, compensated Acute on chronic diastolic CHF; follows with [facility] cardiology. compensated. EF nml CAD, non-obstructive per cath 2016 as note above Severe s/p TAVR 01/2017 Hypertension; controlled AFIB RVR: new onset, HR up again to 110s Urinary retention Labs Labs Laboratory Tests Test 06/24/21 04:15 06/25/21 04:30 Sodium Level 138 mmol/L (136-145) 138 mmol/L (136-145) Potassium Level 4.0 mmol/L (3.5-5.1) 3.5 mmol/L (3.5-5.1) Chloride Level 99 mmol/L (98-107) 100 mmol/L (98-107) Carbon Dioxide Level 27 mmol/L (21-32) 28 mmol/L (21-32) Anion Gap 12 (6-14) 10 (6-14) Blood Urea Nitrogen 32 mg/dL (7-20) 47 mg/dL (7-20) Creatinine 1.5 mg/dL (0.6-1.0) 1.8 mg/dL (0.6-1.0) Estimated GFR (Cockcroft-Gault) 32.7 26.5 Glucose Level 115 mg/dL (70-99) 118 mg/dL (70-99) Calcium Level 8.6 mg/dL (8.5-10.1) 8.6 mg/dL (8.5-10.1) Thyroid Stimulating Hormone (TSH) 3.554 uIU/mL (0.358-3.74) White Blood Count 13.3 x10^3/uL (4.0-11.0) Red Blood Count 3.92 x10^6/uL (3.50-5.40) Hemoglobin 12.1 g/dL (12.0-15.5) Hematocrit 36.7 % (36.0-47.0) Mean Corpuscular Volume 94 fL (79-100) Mean Corpuscular Hemoglobin 31 pg (25-35) Mean Corpuscular Hemoglobin Concent 33 g/dL (31-37) Red Cell Distribution Width 15.3 % (11.5-14.5) Platelet Count 274 x10^3/uL (140-400) Laboratory Tests Test 06/25/21 04:30 White Blood Count 13.3 x10^3/uL (4.0-11.0) Red Blood Count 3.92 x10^6/uL (3.50-5.40) Hemoglobin 12.1 g/dL (12.0-15.5) Hematocrit 36.7 % (36.0-47.0) Mean Corpuscular Volume 94 fL (79-100) Mean Corpuscular Hemoglobin 31 pg (25-35) Mean Corpuscular Hemoglobin Concent 33 g/dL (31-37) Red Cell Distribution Width 15.3 % (11.5-14.5) Platelet Count 274 x10^3/uL (140-400) Sodium Level 138 mmol/L (136-145) Potassium Level 3.5 mmol/L (3.5-5.1) Chloride Level 100 mmol/L (98-107) Carbon Dioxide Level 28 mmol/L (21-32) Anion Gap 10 (6-14) Blood Urea Nitrogen 47 mg/dL (7-20) Creatinine 1.8 mg/dL (0.6-1.0) Estimated GFR (Cockcroft-Gault) 26.5 Glucose Level 118 mg/dL (70-99) Calcium Level 8.6 mg/dL (8.5-10.1) Review All relevant outside records, renal labs, imaging studies, telemetry/EKG's were reviewed. Images Images chest x-ray showed the patient has diffuse interstitial thickening with ill- defined opacities, may represent pulmonary edema or infection. She has small bilateral pleural effusions. MABLE SANTILLAN MD Jun 25, 2021 14:26
--- NOTE | 2021-06-25 14:55 | PDOC ---
PROGRESS NOTES Date of Service: DATE: 06/25/21 TIME: 14:53 Subjective Subjective Sleeping comfortably, no new issues per nursing Objective Objective Vital Signs Date Time Temp Pulse Resp B/P (MAP) Pulse Ox O2 Delivery O2 Flow Rate FiO2 06/25/21 11:00 98.6 83 16 147/67 (93) 96 Nasal Cannula 2.5 98.6 Intake and Output 06/25/21 07:00 Intake Total 1120 ml Output Total 350 ml Balance 770 ml Intake Oral 1120 ml Output Urine Total 350 ml Stool Total 0 ml Physical Exam Abdomen: Soft, No tenderness Heart: Regular rate (SR), Other (ESM aortic) Extremities: Normal pulses, Other (1+ bilateral LE edema ) General: Alert, Cooperative, No acute distress, Other (alert to person only ) Lungs: Other (diminished bases) MUSCULOSKELETAL: Osteoarthritic changes both hands Neuro: Normal speech, Sensation intact Psych/Mental Status: Mood NL, Other (confused ) Assessment Assessment 1. Acute on chronic respiratory failure secondary to CHF, compensated 2. Acute on chronic diastolic CHF; follows with [facility] cardiology. Better compensated. EF nml 3. CAD, non-obstructive per cath 2016, chest pain-free 4. 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 Hypertension; controlled 6. Hyperlipidemia: Continue statins 7. Hypothyroidism; on levothyroxine 8. CKD; Cr stable 9. Dementia 10. Mild to moderate mitral valve stenosis 11. AFIB RVR: new onset, heart rate better controlled. Telemetry showed few less than 3-second pauses. Continue to monitor. Continue Eliquis for stroke prophylaxis. Plan outpatient event monitor. 12. Urinary retention Comment Review of Relevant I have reviewed the following items issa (where applicable) has been applied. Labs Laboratory Tests Test 06/25/21 04:30 White Blood Count 13.3 x10^3/uL (4.0-11.0) Red Blood Count 3.92 x10^6/uL (3.50-5.40) Hemoglobin 12.1 g/dL (12.0-15.5) Hematocrit 36.7 % (36.0-47.0) Mean Corpuscular Volume 94 fL (79-100) Mean Corpuscular Hemoglobin 31 pg (25-35) Mean Corpuscular Hemoglobin Concent 33 g/dL (31-37) Red Cell Distribution Width 15.3 % (11.5-14.5) Platelet Count 274 x10^3/uL (140-400) Sodium Level 138 mmol/L (136-145) Potassium Level 3.5 mmol/L (3.5-5.1) Chloride Level 100 mmol/L (98-107) Carbon Dioxide Level 28 mmol/L (21-32) Anion Gap 10 (6-14) Blood Urea Nitrogen 47 mg/dL (7-20) Creatinine 1.8 mg/dL (0.6-1.0) Estimated GFR (Cockcroft-Gault) 26.5 Glucose Level 118 mg/dL (70-99) Calcium Level 8.6 mg/dL (8.5-10.1) Medications Current Medications Apixaban (Eliquis) 2.5 mg BID PO Last administered on 06/25/21at 09:37; Start 06/24/21 at 21:00 Diltiazem HCl (Cardizem 24hr ) 120 mg DAILY PO Last administered on 06/25/21at 09:37; Start 06/24/21 at 17:00 Ergocalciferol (Vitamin D2) 50,000 unit WEEKLY PO ; Start 06/28/21 at 09:00 Sodium Chloride 500 ml @ 500 mls/hr 1X ONCE IV Last administered on 06/25/21at 10:48; Start 06/25/21 at 10:00; Stop 06/25/21 at 10:59; Status DC Vitals/I & O Vital Sign - Last 24 Hours 06/24/21 06/24/21 06/24/21 06/24/21 15:00 18:21 19:25 19:35 Temp 98.3 97.4 98.3 97.4 Pulse 95 72 66 Resp 18 20 B/P (MAP) 124/66 (85) 130/60 144/65 (91) Pulse Ox 96 97 O2 Delivery Nasal Cannula Nasal Cannula Nasal Cannula O2 Flow Rate 2.0 2.5 2.5 06/24/21 06/25/21 06/25/21 06/25/21 23:35 03:35 07:00 08:00 Temp 97.3 97.1 97.9 97.3 97.1 97.9 Pulse 75 76 68 Resp 21 20 16 B/P (MAP) 138/62 (87) 152/67 (95) 157/67 (97) Pulse Ox 97 100 98 O2 Delivery Nasal Cannula Nasal Cannula Nasal Cannula Nasal Cannula O2 Flow Rate 2.5 2.5 2.5 2.5 06/25/21 06/25/21 09:37 11:00 Temp 98.6 98.6 Pulse 76 83 Resp 16 B/P (MAP) 152/67 147/67 (93) Pulse Ox 96 O2 Delivery Nasal Cannula O2 Flow Rate 2.5 Intake and Output 06/24/21 06/24/21 06/25/21 15:00 23:00 07:00 Intake Total 700 ml 360 ml 60 ml Output Total 0 ml 350 ml Balance 700 ml 360 ml -290 ml BRENDA MERAZ MD Jun 25, 2021 14:55
[2021-06-25 15:00] VITALS: BP 133/59
[2021-06-25 19:18] VITALS: BP 159/77
[2021-06-25] MEDS: SERTRALINE 25 MG TABLET. PO SCH (21:05)
[2021-06-25] MEDS: ASPIRIN CHEWABLE 81 MG TABLET. PO SCH (21:05)
[2021-06-25] MEDS: ATORVASTATIN CALCIUM 40 MG TABLET. PO SCH (21:05)
[2021-06-25 22:28] VITALS: BP 165/87
[2021-06-26 02:37] VITALS: BP 162/73
[2021-06-26 05:23] LABS: CALCIUM 8.7 mg/dL (8.5-10.1); CREATININE 1.4 mg/dL (0.6-1.0); GFR 35.4; POTASSIUM 3.7 mmol/L (3.5-5.1)
--- NOTE | 2021-06-26 06:08 | PN ---
DATE: 06/25/2021 SUBJECTIVE: The patient is resting, slightly propped up in bed, in no apparent distress. On questioning her, denied any complaint. The nursing staff did not voice any concern, said that she has generally uneventful night. PHYSICAL EXAMINATION: GENERAL: When I examined her, there was no pallor, jaundice, cyanosis or thyromegaly. No jugular venous distention. No lower limb edema. VITAL SIGNS: Her heart rate was 76, blood pressure is 152/67, temperature 97.1, respiratory rate was 20, and oxygen saturation was 100% on 2.5 liters of oxygen. HEAD, EYES, EARS, NOSE, AND THROAT: Normocephalic, atraumatic. NECK: Supple. HEART: Showed normal first and second heart sounds, no gallop, rub or murmur. CHEST: Clear to auscultation, no crepitation or rhonchi. ABDOMEN: Distended, soft, nontender. NEUROLOGIC: She is demented without any obvious lateralizing sign. The patient has an indwelling Ziegler catheter. Her intake over the last 24 hours was 360, output was 1100. LABORATORY DATA: As of this morning, her white cell count was 13,300, hemoglobin 12, hematocrit 36, MCV 94 and platelet count 274,000. Her chemistry showed a serum sodium 138, potassium 3.5, chloride 100, bicarbonate 28, anion gap of 10, BUN 47, creatinine 1.8. Estimated GFR was 26 mL per minute. Her glucose 118 and calcium was 8.6. ASSESSMENT: 1. Acute on chronic hypoxic respiratory failure. 2. Acute on chronic diastolic congestive heart failure, well compensated. I did discontinue her IV Lasix yesterday. 3. Healthcare-associated pneumonia, treated with Zithromax and Rocephin. 4. Acute kidney injury, likely due to overdiuresis. I did discontinue her Lasix yesterday and she did have an indwelling Ziegler catheter as she has urine retention and about 1200 mL of fluid was removed yet her creatinine continued to rise, today is 1.8. 5. Urinary retention requiring indwelling Ziegler catheter. 6. Hypertension. 7. Hyperlipidemia. 8. Hypothyroidism. 9. Dementia. 10. New-onset atrial fibrillation with rapid ventricular response. She is currently on Cardizem her drip was discontinued. 11. Coronary artery disease with nonobstructive coronary disease with catheterization. 12. She has severe aortic stenosis, status post transcatheter aortic valve replacement. She does have also mitral stenosis. 13. Chronic kidney disease. PLAN: I did order a bolus of normal saline 500 mL and also consulted the Nephrology team to assist with her management. JOSEPH/DELANEY DR: Jennifer TID: [id number]
[2021-06-26 07:00] VITALS: BP 170/74
[2021-06-26] MEDS ORDERED: CHOL500021 PO (09:56)
[2021-06-26] MEDS ORDERED: DILT120C99 PO (09:56)
[2021-06-26] MEDS ORDERED: APIX2.5T PO (09:56)
[2021-06-26] MEDS ORDERED: CLON-77 PO (09:58)
[2021-06-26] MEDS ORDERED: HYDR-2761 PO (09:58)
[2021-06-26] MEDS: LACTOBACILLUS RHAMNOSUS GG 1 CAPSULE. PO SCH (10:19)
[2021-06-26] MEDS: APIXABAN 2.5 MG TABLET. PO SCH (10:19)
[2021-06-26] MEDS: POTASSIUM CHLORIDE 10 MEQ TABLET.ER. PO SCH (10:20)
[2021-06-26] MEDS: cefTRIAXone IV Push 1 GM VIAL. IVP SCH (10:20)
--- NOTE | 2021-06-26 10:48 | DS ---
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 She is normally on 2 liters of oxygen at all times, but the staff noted that she was hypoxic and attempted to titrate her oxygen to 3 liters without much improvement. The patient did not have any cough, fever or bilateral lower limb edema. She is demented and does not really give any useful information. She was vaccinated for COVID-19. There was no evidence of any sick contact. She was extensively investigated in the Emergency Room and had lab work and imaging studies. Her white cell count was normal at 9000. Her chemistry showed she has slightly elevated serum creatinine and her BNP of 1852. Urinalysis essentially unremarkable. Her chest x-ray showed the patient has diffuse interstitial thickening with ill-defined opacities, may represent pulmonary edema or infection. She has small bilateral pleural effusions. Her cardiac enzymes were normal and therefore, the patient was admitted to [facility] with diagnosis of acute on chronic hypoxic respiratory failure, acute probably diastolic congestive heart failure. She was treated with IV antibiotic and furosemide. She was also treated for possible healthcare-associated pneumonia and while at [facility], she developed an episode of atrial fibrillation with rapid ventricular response, for which she was treated with Cardizem drip, IV digoxin. Eventually, she was switched to oral Cardizem. We discontinued her metoprolol as well as her amlodipine. She was started also on a low-dose apixaban twice a day. Due to over diuresis, she developed acute kidney injury. Her creatinine has risen up to 1.8 and has subsequently came down. As she remained hemodynamically stable, afebrile, and kidney function is back to normal, decision was made to discharge her back to [facility]. PHYSICAL EXAMINATION: GENERAL: When I saw her this morning, she was somewhat pale, but no jaundiced or cyanosed. No lymphadenopathy, no thyromegaly, no jugular venous distention. No limb edema. VITAL SIGNS: Her heart rate was 98, blood pressure was 162/73, temperature was 98.8, respiratory rate was 16 and oxygen saturation was 99% on 2 liters of oxygen. HEAD, EYES, EARS, NOSE AND THROAT: Normocephalic, atraumatic. NECK: Supple. HEART: Normal first and second heart sounds, no gallop or murmur. CHEST: Clear to auscultation. No crepitation or rhonchi. ABDOMEN: Scaphoid, soft, nontender. NEUROLOGIC: She was demented, but without any obvious lateralizing sign. Her intake was 1100, output was 350. LABORATORY DATA: As of this morning, her serum sodium was 140, potassium 3.7, chloride 102, bicarbonate 29, anion gap of 9, BUN 47, creatinine was 1.4, estimated GFR was 35 mL per minute, her glucose 112, calcium was 8.7. Her TSH was 3.554. DISCHARGE MEDICATIONS: The patient was discharged to [facility] to continue on apixaban 2.5 mg twice a day, vitamin D3 of 50,000 units once a week, clonazepam 0.5 mg 3 times a day, diltiazem hydrochloride extended release 120 mg once a day, hydrocodone/APAP 5/325 mg 1 tablet every 6 hours. She was also discharged on Tylenol 650 mg every 6 hours as needed, aspirin 81 mg once a day, calcium carbonate 500 mg twice a day, furosemide 20 mg daily, gabapentin 100 mg at bedtime, levothyroxine sodium 88 mcg, loperamide (Imodium) 2 mg as needed every 8 hours, Protonix 40 mg once a day and senna 1 tablet once a day. We discontinued her amlodipine, metoprolol, and omeprazole. FINAL DISCHARGE DIAGNOSES: 1. Acute on chronic hypoxic respiratory failure, resolved. She is back now on 2 liters of oxygen. 2. Acute diastolic congestive heart failure, is well compensated. We discontinued her IV Lasix. 3. Healthcare-associated pneumonia, treated with Zithromax and Rocephin. 4. Acute kidney injury, likely due to over diuresis. I did discontinue her Lasix. Her creatinine is down to 1.4 mg/dL. 5. Urinary retention, for which we placed a Ziegler catheter in. As she is very confused, we decided to take the catheter out. 6. Hypertension. 7. Hyperlipidemia. 8. Hypothyroidism. 9. Dementia. 10. New onset atrial fibrillation with rapid ventricular response. She is now rate controlled on Cardizem and we will anticoagulate on apixaban. 11. Coronary artery disease with nonobstructive coronary artery disease on catheterization. 12. She has severe aortic stenosis, status post transcatheter aortic valve replacement. She has also mitral stenosis. 13. Chronic kidney disease. SATURNINO/RAYNE DR: Jennifer TID: [id number]
[2021-06-26 11:00] VITALS: BP 177/74
--- NOTE | 2021-06-26 11:13 | SNU/HH DC ---
DISCHARGE ORDERS DISCHARGE INFORMATION: DISCHARGE DATE: Jun 26, 2021 FINAL DIAGNOSIS Acute CHF CONDITION ON DISCHARGE: Stable CODE STATUS: Code Status: DNR/DNI CORRECTION: SNF STAY <30 DAYS: Yes POST DISCHARGE ORDERS: ACTIVITY ORDERS: Activity as tolerated WEIGHT BEARING STATUS: As tolerated DIET AFTER DISCHARGE: Cardiac WOUND/INCISION CARE: Other, see below CHECKS AFTER DISCHARGE: CHECKS AFTER DISCHARGE: Check blood press - daily, Check your Temp as needed FOLLOW-UP: ADDITIONAL FOLLOW-UP: Primary care provider as needed TREATMENT/EQUIPMENT ORDERS: ADAPTIVE EQUIPMENT NEEDED: None, Front wheeled walker RESPIRATORY EQUIPMENT NEEDED: Oxygen Physical Therapy For: Evalulation/Treatment Occupational Therapy For: Evaluation/Treatment DISCHARGE MEDICATIONS: Home Meds Active Scripts Hydrocodone Bit/Acetaminophen (HYDROCODONE-APAP 5-325 ) 1 Tab Tablet, 1 TAB PO PRN Q6HRS PRN for PAIN for 30 Days, #120 TAB 0 Refills Prov:WANDA HALE MD 06/26/21 Clonazepam (CLONAZEPAM ) 0.5 Mg Tablet, 0.5 MG PO TID for FOR ANXIETY for 30 Days, #90 TAB 5 Refills Prov:WANDA HALE MD 06/26/21 Cholecalciferol (Vitamin D3) (D3-50) 50,000 Unit Capsule, 1 CAP PO WEEKLY for vitamin d for 28 Days, #4 CAP 5 Refills Prov:WANDA HALE MD 06/26/21 Apixaban (ELIQUIS) 2.5 Mg Tablet, 2.5 MG PO BID for a fib for 30 Days, #60 TAB 5 Refills Prov:WANDA HALE MD 06/26/21 Diltiazem Hcl (DILTIAZEM 24HR CD) 120 Mg Cap.er.24h, 1 CAP PO DAILY for a fib for 30 Days, #30 CAP 5 Refills Prov:WANDA HALE MD 06/26/21 Reported Medications Sennosides (SENNA) 8.6 Mg Tablet, 8.6 MG PO PRN DAILY, TAB 09/24/17 Furosemide (FUROSEMIDE) 20 Mg Tablet, 1 TAB PO DAILY, #90 TAB 1 Refill 09/24/17 Loperamide HCl (Imodium A-D) 2 Mg Capsule, 2 MG PO, CAP 09/24/17 Ondansetron Hcl (ZOFRAN) 4 Mg Tablet, 1 TAB PO Q8HRS, #30 TAB 09/24/17 Gabapentin (GABAPENTIN ) 100 Mg Capsule, 100 MG PO HS, CAP 09/24/17 Acetaminophen (TYLENOL) 325 Mg Tablet, 1-2 TAB PO PRN Q6HRS, #60 TAB 2 Refills 09/24/17 Pantoprazole Sodium (PANTOPRAZOLE SODIUM ) 40 Mg Tablet.dr, 1 TAB PO DAILY, #30 TAB 3 Refills 09/24/17 Calcium Carbonate (CALCIUM CARBONATE) 500 Mg Tablet, 500 MG PO QID 10/08/16 Aspirin (ASPIRIN) 81 Mg Tab.chew, 1 TAB PO HS, #30 TAB 3 Refills 10/08/16 Levothyroxine Sodium (SYNTHROID) 88 Mcg Tablet, 1 TAB PO DAILY06, #30 TAB 5 Refills 10/08/16 Discontinued Reported Medications Amlodipine Besylate (NORVASC) 10 Mg Tablet, 10 MG PO DAILY, TAB 09/24/17 Omeprazole Magnesium (PRILOSEC OTC) 20 Mg Tablet.dr, 1 TAB PO DAILY16, #30 TAB 3 Refills 10/08/16 Metoprolol Succinate (METOPROLOL SUCCINATE ( XL )) 100 Mg Tab.er.24h, 1 TAB PO DAILY07, #30 TAB 5 Refills 10/08/16 Clonazepam (CLONAZEPAM) 0.25 Mg Tab.rapdis, 0.5 MG PO [id number] for anxiety disorder, TAB 10/08/16 PIO CALVO MD Jun 26, 2021 11:12
--- NOTE | 2021-06-26 13:01 | PDOC ---
PROGRESS NOTES Date of Service: DATE: 06/26/21 TIME: 13:00 Subjective Subjective No new complaints Objective Objective Vital Signs Date Time Temp Pulse Resp B/P (MAP) Pulse Ox O2 Delivery O2 Flow Rate FiO2 06/26/21 10:20 98 162/73 06/26/21 08:00 Nasal Cannula 2.5 06/26/21 07:00 98.2 16 96 98.2 Intake and Output 06/26/21 07:00 Intake Total 60 ml Output Total 450 ml Balance -390 ml Intake Oral 60 ml Output Urine Total 450 ml # Bowel Movements 1 Physical Exam Abdomen: Soft, No tenderness Heart: Regular rate (SR), Other (ESM aortic) Extremities: Normal pulses, Other (1+ bilateral LE edema ) General: Alert, Cooperative, No acute distress, Other (alert to person only ) Lungs: Other (diminished bases) MUSCULOSKELETAL: Osteoarthritic changes both hands Neuro: Normal speech, Sensation intact Psych/Mental Status: Mood NL, Other (confused ) Assessment Assessment 1. Acute on chronic respiratory failure secondary to CHF, compensated 2. Acute on chronic diastolic CHF; follows with [facility] cardiology. Better compensated. EF nml 3. CAD, non-obstructive per cath 2016, chest pain-free 4. 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 Hypertension; controlled 6. Hyperlipidemia: Continue statins 7. Hypothyroidism; on levothyroxine 8. CKD; Cr stable 9. Dementia 10. Mild to moderate mitral valve stenosis 11. AFIB RVR: new onset, heart rate better controlled. Telemetry showed few less than 3-second pauses. Continue to monitor. Continue Eliquis for stroke prophylaxis. Plan outpatient event monitor. 12. Urinary retention Comment Review of Relevant I have reviewed the following items issa (where applicable) has been applied. Labs Laboratory Tests Test 06/26/21 04:30 Sodium Level 140 mmol/L (136-145) Potassium Level 3.7 mmol/L (3.5-5.1) Chloride Level 102 mmol/L (98-107) Carbon Dioxide Level 29 mmol/L (21-32) Anion Gap 9 (6-14) Blood Urea Nitrogen 47 mg/dL (7-20) Creatinine 1.4 mg/dL (0.6-1.0) Estimated GFR (Cockcroft-Gault) 35.4 Glucose Level 112 mg/dL (70-99) Calcium Level 8.7 mg/dL (8.5-10.1) Medications Current Medications Ergocalciferol (Vitamin D2) 50,000 unit WEEKLY PO ; Start 06/28/21 at 09:00 Vitals/I & O Vital Sign - Last 24 Hours 06/25/21 06/25/21 06/25/21 06/25/21 15:00 19:18 20:00 22:28 Temp 97.8 98.5 99.6 97.8 98.5 99.6 Pulse 68 102 93 Resp 18 16 18 B/P (MAP) 133/59 (83) 159/77 (104) 165/87 (113) Pulse Ox 91 94 96 O2 Delivery Nasal Cannula Nasal Cannula Nasal Cannula Nasal Cannula O2 Flow Rate 2.0 2.0 2.0 2.0 06/26/21 06/26/21 06/26/21 06/26/21 02:37 07:00 08:00 10:20 Temp 98.8 98.2 98.8 98.2 Pulse 98 94 98 Resp 16 16 B/P (MAP) 162/73 (102) 170/74 (106) 162/73 Pulse Ox 99 96 O2 Delivery Nasal Cannula Nasal Cannula Nasal Cannula O2 Flow Rate 2.0 2.5 2.5 Intake and Output 06/25/21 06/25/21 06/26/21 15:00 23:00 07:00 Intake Total 0 ml 60 ml 0 ml Output Total 450 ml Balance 0 ml 60 ml -450 ml BRENDA MERAZ MD Jun 26, 2021 13:01
[2021-06-28] MEDS ORDERED: ERGOCALCIFEROL (VITAMIN D2) 50,000 UNIT CAPSULE. PO SCH (09:00)
== END 2021-06-26 11:20 | DRG 177 ==
LOC: 5 SOUTH 23:45 → 6 SOUTH 06-23 14:36
PROVIDERS: ADMIT Internal Medicine; ATTEND Internal Medicine
DX: J15.6 Pneumonia due to other Gram-negative bacteria (principal); J96.21 Acute and chronic respiratory failure with hypoxia; I50.33 Acute on chronic diastolic (congestive) heart failure; I13.0 Hypertensive heart and chronic kidney disease with heart failure and stage 1 through stage 4 chronic kidney disease, or unspecified chronic kidney disease; N17.9 Acute kidney failure, unspecified; J15.9 Unspecified bacterial pneumonia; E03.9 Hypothyroidism, unspecified; E78.5 Hyperlipidemia, unspecified; F03.90 Unspecified dementia, unspecified severity, without behavioral disturbance, psychotic disturbance, mood disturbance, and anxiety; I08.0 Rheumatic disorders of both mitral and aortic valves; I25.10 Atherosclerotic heart disease of native coronary artery without angina pectoris; I48.91 Unspecified atrial fibrillation; N18.9 Chronic kidney disease, unspecified; T50.2X5A Adverse effect of carbonic-anhydrase inhibitors, benzothiadiazides and other diuretics, initial encounter; Y95 Nosocomial condition; Z95.2 Presence of prosthetic heart valve; F32.9 Major depressive disorder, single episode, unspecified; F41.9 Anxiety disorder, unspecified; K21.9 Gastro-esophageal reflux disease without esophagitis; M19.90 Unspecified osteoarthritis, unspecified site; Z88.8 Allergy status to other drugs, medicaments and biological substances; Y92.89 Other specified places as the place of occurrence of the external cause; R33.9 Retention of urine, unspecified
CPT/HCPCS: 36415; 80048; 80053; 84443; 84484; 85025; 85027; 93005; 93306; J0696; J1160; J1940; J3490; J7040; 97530-GP; G0378